=== PATIENT | male | born 1975 | race Caucasian/White ===

== ENCOUNTER 2024-11-09 01:16 | Emergency (ER) | payer OTHER, SELFPAY ==
[2024-11-09] VITALS (12 sets, daily range): BP systolic 114–153; BP diastolic 81–104; PULSE 117–128; RESP 20–46; TEMP 36.1; O2SAT 98–100
--- NOTE | ~2024-11-09 | XR_ITS ---
Portable chest x-ray Comparison: 04/04/2009 Clinical History: Weakness Findings: Lungs are clear, without focal consolidation or pleural effusion. Cardiomediastinal silho uette is stable. Bones and soft tissues are unremarkable. Impression: Normal chest. Reviewed, dictated and finalized at location . Impression: Normal chest.
[2024-11-09 01:28] LABS: Glucose Point of Care > 450 mg/dl (65-105)
--- NOTE | 2024-11-09 01:37 | ECG_ITS ---
Test Date: 2024-11-09 02:26:09 Measurements Intervals [place] Rate: 120 P: 96 ND: 142 QRS: 84 QRSD: 120 T: 40 QT: 382 QTc: 541 Interpretive Statements SINUS TACHYCARDIA MODERATE INTRAVENTRICULAR CONDUCTION DELAY [110+ ms QRS DURATION] BASELINE ARTIFACT LIMITS INTREPRETATION No previous ECG available for comparison Electronically Signed On 11-09-2024 14:28:10 CDT by Rosalva Solomon M.D.
[2024-11-09 01:59] LABS: Base Excess ABG -21.5 mmol/L (0-2); Carboxyhemoglobin 0.1 % (0-1.5); HCO3 ABG 3.7 mmol/L (23-29); Methemoglobin ABG 0.5 % (0-1.5); Oxygen Content ABG 24.6 %vol (16.0-22.0); Oxygen Saturation ABG 97.7 % (95-97); Oxyhemoglobin 97.1 % (94-100); PO2 ABG 130.5 mmHg (80-90); Reduced Hemoglobin 2.3 % (0-1.5); pH ABG 7.17 (7.35-7.45)
[2024-11-09 02:03] LABS: Device NASAL CANNULA; Hematocrit 54.5 % (40.0-54.0); Mean Corpuscular Hemoglobin 30.3 pg (27.0-31.0); Mean Corpuscular Volume 91.6 fL (78.0-102.0); Mean Platelet Volume 10.4 fl (8.7-11.0); Modified Allen's Test Pass; PCO2 ABG 10.3 mmHg (35-45); Platelet Count Result 307 K/mm3 (150-420); Red Blood Count 5.95 M/mm3 (4.70-6.10); Red Cell Distribution Width 13.2 % (11.6-14.4); Site Drawn RIGHT RADIAL; White Blood Count 19.9 K/mm3 (4.8-10.8)
[2024-11-09] MEDS: INSULIN HUMAN REGULAR (*BKC) 1,000 UNITS/10 ML VIAL 10 UNITS IV PUSH (02:05)
[2024-11-09] MEDS: SODIUM CHLORIDE 0.9% IV 1,000 ML 3000 ML IV CONT (02:05)
[2024-11-09] MEDS: INSULIN REG 100 UNITS/100 ML 100 UNITS/100 ML BAG 7 UNITS IV CONT (02:10)
--- OUTSIDE RECORDS SUMMARY | 2024-11-09 02:12 | XMS_ITS | Encounter Summary ---
Author Organization [facility] Address [address] [place] [id number] Care Team Providers Care Financial Data Analyst Name Role Phone Oniel Cleaning MD Primary Care Provider Encounter Details Date Type Department Care Team (Late st Contact Info) Description 01/10/2023 Trade[employer] Message Enc [facility] [address] [address] Johnny Khan III, MD [address] [place] [phone] Visit Follow Up Social History Tobacco Use Types Packs/Day Years Used Date Smoking Tobacco: Former Cigarettes Q uit: 08/01/2017 Smokeless Tobacco: Never Alcohol Use Standard Drinks/Week Comments Yes 0 (1 standard drink = 0.6 oz pur e alcohol) occasionally Sex and Gender Information Value Date Recorded Sex Assigned at Not on file Legal Sex Male 4:22 PM CDT Gender Identity Not on file Sexual Orientation Not on file COVID-19 Exposure Response Date Recorded In the last 10 days, have yo u been in contact with someone who was confirmed or suspected to have Coronavirus/COVID-19? No / Unsure 01/10/2023 9:20 AM CDT documented as of this encounter Plan of Treatment Not on file documented as of this encounter Visit Diagnoses Not on filedocumented in this encounter Care Teams Financial Data Analyst Relationship Specialty Start Date End Date Oniel Cleaning MD [address] [place] [phone] PCP - General FAMILY PRACTICE 06/13/21 documented as of this encounter
--- OUTSIDE RECORDS SUMMARY | 2024-11-09 02:12 | XMS_ITS | Clinical Summary ---
Author Organization [facility] Address [address] [place] [id number] Care Team Providers Care Cyber Software Engineer Name Role Phone Oniel Cleaning MD Primary Care Provider Allergies No known active allergies Medications ibuprofen (MOTRIN) 200 MG tablet Take 1 tablet (200 mg total) by mouth every 6 (six) hours as needed for Pain. Active Active Problems Problem Noted Date Diagnosed Date Lumbar radiculopathy 12/10/2021 Patellofemoral pain syndrome of left knee 2020 Family History Medical History Relation Comments No Known Problems Father Aortic bypass Mother Cardiac Stents Mother Heart Disease Mother Kidney Disease Mother Peripheral Vascular Disease Mother Relation Status Comments Father Alive Mother Alive Social History Tobacco Use Types Packs/Day Years [...] on file Sexual Orientation Not on file Last Filed Vital Signs Vital Sign Reading Time Taken Comments Blood Pressure 143/95 11/08/2022 3:46 PM BASS MECHANISM MAKER Pulse 85 11/08/2022 3:46 PM BASS MECHANISM MAKER Temperature 36.7 C (98.1 F) 11/08/2022 3:46 PM BASS MECHANISM MAKER Respiratory Rate 18 11/08/2022 3:46 PM BASS MECHANISM MAKER Oxygen Saturation 100% 11/08/2022 3:46 PM BASS MECHANISM MAKER Inhaled Oxygen Concentration - - Weight 79.8 kg (176 lb) 01/10/2023 9:45 AM CDT Height 180.3 cm (5' 11 ) 01/10/2023 9:45 AM CDT Body Mass Index 24.55 01/10/2023 9:45 AM CDT Plan of Treatment Health Maintenance Due Date Last Done Comments Colorectal Cancer Screening Colonoscopy (10 Years) 1977 Annual Physical 01/24/1980 Hepatitis C 1995 DTaP, Tdap and Td Vaccines ( 1 - Tdap) 01/24/1996 Hepatitis B Vaccines (1 of 3 - 19+ 3-dose series) 01/24/1996 COVID-19 Vaccine (2023-2 5 season) 2024 01/09/2021, 12/12/2020 Influenza Adult (#1) 2024 Meningococcal B Vaccine Aged Out No l onger eligible based on patient's age to complete this topic Meningococcal Vaccine Aged Out No vida ella eligible based on patient's age to complete this topic Pneumococcal Vaccine: Pediatrics (0 to 5 Years) and At-Risk Patients (6 to 64 Years) Aged Out No longer eligible b ased on patient's age to complete this topic RSV Immunizations Under 20 Months Aged Out No longer eligible b ased on patient's age to complete this topic Insurance [employer]MENTS OF [employer] Care Teams Cyber Software Engineer Relationship Specialty Start Date End Date Oniel Cleaning MD [address] [place] [phone] PCP - General FAMILY PRACTICE 06/13/21
--- NOTE | 2024-11-09 02:17 | PC.NURSE ---
WARM BLANKETS PLACED
--- NOTE | 2024-11-09 02:18 | ED.AMS ---
HPI - Altered Mental Status General Chief Complaint: Altered Mental Status Stated Complaint: ELEVATED BLOOD GLUCOSE Time Seen by Provider: 11/09/24 01:20 Source: family and EMS Mode of arrival: EMS Limitations: altered mental status History of Present Illness HPI narrative: 49 year old male arrives to the Emergency Department via EMS. EMS was called by family for decreasing level of consciousness over past 4 days. Family called tonight because his breathing was fast. MD complaint: altered mental status Onset (ago): day(s) (4) Related Data Allergies Allergy/AdvReac Type Severity Reaction Status Date / Time No Known Allergies Allergy Mild Verified 11/09/24 01:26 Review of Systems Review of Systems: All systems reviewed & are unremarkable except as noted in HPI and below ROS unobtainable: Yes unobtainable due to mental status Exam Const: Limitations: altered mental status Other: moaning, incoherent, tachypnea, tachycardic HENMT: Head: normal to inspection Ears: external ears normal Face/Nose/Sinus: Normal external nose present Face and sinus: normal facial exam Mouth: Yes dry mucous membranes Eyes: Pupils: Equal, round and reactive pupils present EOM: EOMs intact bilaterally Neck: Neck: normal visual inspection and no meningeal signs Chest: Chest palpation & inspection: normal inspection of the chest Resp: Effort & Inspection: tachypneic (Kussmaul breathing) Auscultation: diminished lung sounds Cardio: Rate: tachycardic Rhythm: regular rhythm GI: Inspection: non-distended GI Palp: Yes Soft to palpation and No Tenderness to palpation present (GI) Back/Spine/Pelvis: Back: no CVA tenderness Skin: General skin exam: normal color Neuro: Other: AMS, moaning, Oriented x 1 Extrem: General: normal to inspection and no clubbing, cyanosis or edema Course Course Emergency Course: 49 y/o male arrives to the ED via EMS for AMS, rapid breathing. Onset 4 days ago, progressively worse. PE: tachypnea [Kussmaul], tachycardic, dry oral mucosa, incoherent FSBS: high (0300) FSBS: >500 CBC: H/H 18/54.5, Plt 307; wbc 19.9 CMP: Na 139, K 4.8, Cl 101, CO2 8, Glc >800, BUN 43, Cr 2.44; LFT's normal. 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 [place]. Bicarbonate 1 amp IVP. Zofran 4 mg IVP. ([phone] Gurpreet contacted re: transfer. Will call back [phone] discussed with Toshia Augustin. Report given and patient accepted for transfer. She will talk to [employer] Operator. Awaiting bed assignment. [phone] Bed assigned ICU 8. Report will be called and EMS notified of transfer ([phone] Spoke with Toshia who has spoke with [employer] Operator. Agrees with management. Would like blood C&S, Covid/Flu/RSV Vital Signs Vital signs: Vital Signs Temperature 36.1 C L 11/09/24 01:15 Pulse Rate 128 H 11/09/24 01:15 Respiratory Rate 46 H 11/09/24 01:15 Blood Pressure 117/81 11/09/24 01:15 Pulse Oximetry 100 11/09/24 01:15 Oxygen Delivery Room Air 11/09/24 01:15 Temperature 36.1 C L 11/09/24 01:15 Pulse Rate 123 H 11/09/24 04:00 Respiratory Rate 20 11/09/24 04:00 Blood Pressure 128/97 H 11/09/24 04:00 Pulse Oximetry 98 11/09/24 04:00 Oxygen Delivery Room Air 11/09/24 04:00 Transfer Transfered to: [facility]: [facility] Transfer rationale: ICU management, DKA, dehydration, hyperglycemia, hyperosmolar, pre renal failure Accepting physician: Marcello CALDERON - Altered Mental Status Lab Data 11/09/24 01:56 11/09/24 01:57 Labs: Lab Results 11/09/24 11/09/24 11/09/24 Range/Units 01:24 01:37 01:45 WBC (4.8-10.8) K/mm3 RBC (4.70-6.10) M/mm3 Hgb (14.0-18.0) g/dL Hct (40.0-54.0) % MCV (78.0-102.0) fL MCH (27.0-31.0) pg MCHC (32-36) g/dL RDW (11.6-14.4) % Plt Count (150-420) K/mm3 MPV (8.7-11.0) fl Immature Gran % (Auto) Neut % (Auto) Lymph % (Auto) Frio % (Auto) Eos % (Auto) Baso % (Auto) Lymph # (Auto) Frio # (Auto) Eos # (Auto) Baso # (Auto) Abs Immat Gran (auto) Absolute Neuts (auto) Absolute Nucleated RBC Neutrophils % (Manual) (46-73) % Band Neutrophils % (0-6) % Lymphocytes % (Manual) (18-44) % Monocytes % (Manual) (3-9) % Eosinophils % (Manual) (1-6) % Basophils % (Manual) (0-1) % Metamyelocytes % % Nucleated RBC % Abs Neuts (Manual) (1.3-6.7) K/mm3 Abs Lymphs (Manual) (1.1-4.5) K/mm3 Abs Monocytes (Manual) (0.1-0.90) K/mm3 Absolute Eos (Manual) (0.02-0.50) K/mm3 Abs Basophils (Manual) (0-0.1) K/mm3 Platelet Estimate (Adequate) Schistocytes Methemoglobin (0-1.5) % Sodium (136-145) mmol/L Potassium (3.5-5.1) mmol/L Chloride (98-108) mmol/L Carbon Dioxide (21-32) mmol/L Anion Gap (4-12) mmol/L BUN (7-18) mg/dL Creatinine (0.70-1.30) mg/dL Estim Creat Clear Calc ml/min Estimated GFR (59 - ) Glucose (70-99) mg/dL POC Capillary Glucose > 450 H (65-105) mg/dl Calculated Osmolality (285-295) mOsm/kg Calcium (8.5-10.1) mg/dL Total Bilirubin (0.00-1.00) mg/dL AST (15-37) U/L ALT (16-63) U/L Alkaline Phosphatase (46-116) U/L Troponin I (0.00-60.4) ng/L Total Protein (6.4-8.2) g/dL Albumin (3.4-5.0) g/dL Urine Color Light yellow (Yellow) Urine Appearance Clear (Clear) Urine pH 5.5 (5.0-8.0) Ur Specific [place] 1.020 (1.010-1.020) Urine Protein Trace H (Negative) Urine Glucose (UA) 3+ H (Negative) Urine Ketones 3+ H (Negative) Ur Blood (Man) Negative (Negative) Urine Nitrate Negative (Negative) Urine Bilirubin 2+ H (Negative) Urine Urobilinogen 0.2 (0.2-1.0) mg/dL Ur Leukocyte Esterase Negative (Negative) Urine RBC 0-2 (0-2) /hpf Urine WBC 0-3 (0-3) /hpf Ur Squamous Epith Cells Rare (Few) /hpf Urine Bacteria None seen (None) /hpf Urine Opiates Screen Negative (Negative) Urine Methadone Screen Negative (Negative) Ur Barbiturates Screen Negative (Negative) Ur Phencyclidine Scrn Negative (Negative) Ur Amphetamine Screen Negative (Negative) U Benzodiazepines Scrn Negative (Negative) Urine Cocaine Screen Negative (Negative) U Cannabinoids Screen Negative (Negative) Acetone Level (Negative) 11/09/24 11/09/24 11/09/24 Range/Units 01:56 01:57 02:00 WBC 19.9 H (4.8-10.8) K/mm3 RBC 5.95 (4.70-6.10) M/mm3 Hgb 18.0 (14.0-18.0) g/dL Hct 54.5 H (40.0-54.0) % MCV 91.6 (78.0-102.0) fL MCH 30.3 (27.0-31.0) pg MCHC 33.0 (32-36) g/dL RDW 13.2 (11.6-14.4) % Plt Count 307 (150-420) K/mm3 MPV 10.4 (8.7-11.0) fl Immature Gran % (Auto) Not Reportable Neut % (Auto) Not Reportable Lymph % (Auto) Not Reportable Frio % (Auto) Not Reportable Eos % (Auto) Not Reportable Baso % (Auto) Not Reportable Lymph # (Auto) Not Reportable Frio # (Auto) Not Reportable Eos # (Auto) Not Reportable Baso # (Auto) Not Reportable Abs Immat Gran (auto) Not Reportable Absolute Neuts (auto) Not Reportable Absolute Nucleated RBC Not Reportable Neutrophils % (Manual) 82 H (46-73) % Band Neutrophils % 0 (0-6) % Lymphocytes % (Manual) 5 L (18-44) % Monocytes % (Manual) 11 H (3-9) % Eosinophils % (Manual) 0 L (1-6) % Basophils % (Manual) 0 (0-1) % Metamyelocytes % 2 % Nucleated RBC % Not Reportable Abs Neuts (Manual) 16.31 H (1.3-6.7) K/mm3 Abs Lymphs (Manual) 0.99 L (1.1-4.5) K/mm3 Abs Monocytes (Manual) 2.18 H (0.1-0.90) K/mm3 Absolute Eos (Manual) 0.00 L (0.02-0.50) K/mm3 Abs Basophils (Manual) 0.00 (0-0.1) K/mm3 Platelet Estimate Adequate (Adequate) Schistocytes Not Reportable Methemoglobin 0.5 (0-1.5) % Sodium 139 (136-145) mmol/L Potassium 4.8 (3.5-5.1) mmol/L Chloride 101 (98-108) mmol/L Carbon Dioxide 8 L (21-32) mmol/L Anion Gap 30 H (4-12) mmol/L BUN 43 H (7-18) mg/dL Creatinine 2.44 H (0.70-1.30) mg/dL Estim Creat Clear Calc 36 ml/min Estimated GFR 29 L (59 - ) Glucose > 800 H* (70-99) mg/dL POC Capillary Glucose > 450 H (65-105) mg/dl Calculated Osmolality 338 H (285-295) mOsm/kg Calcium 9.8 (8.5-10.1) mg/dL Total Bilirubin 1.0 (0.00-1.00) mg/dL AST < 10 L (15-37) U/L ALT 20 (16-63) U/L Alkaline Phosphatase 186 H (46-116) U/L Troponin I 5.6 (0.00-60.4) ng/L Total Protein 8.9 H (6.4-8.2) g/dL Albumin 4.0 (3.4-5.0) g/dL Urine Color (Yellow) Urine Appearance (Clear) Urine pH (5.0-8.0) Ur Specific [place] (1.010-1.020) Urine Protein (Negative) Urine Glucose (UA) (Negative) Urine Ketones (Negative) Ur Blood (Man) (Negative) Urine Nitrate (Negative) Urine Bilirubin (Negative) Urine Urobilinogen (0.2-1.0) mg/dL Ur Leukocyte Esterase (Negative) Urine RBC (0-2) /hpf Urine WBC (0-3) /hpf Ur Squamous Epith Cells (Few) /hpf Urine Bacteria (None) /hpf Urine Opiates Screen (Negative) Urine Methadone Screen (Negative) Ur Barbiturates Screen (Negative) Ur Phencyclidine Scrn (Negative) Ur Amphetamine Screen (Negative) U Benzodiazepines Scrn (Negative) Urine Cocaine Screen (Negative) U Cannabinoids Screen (Negative) Acetone Level Moderate A (Negative) 11/09/24 Range/Units 04:02 WBC (4.8-10.8) K/mm3 RBC (4.70-6.10) M/mm3 Hgb (14.0-18.0) g/dL Hct (40.0-54.0) % MCV (78.0-102.0) fL MCH (27.0-31.0) pg MCHC (32-36) g/dL RDW (11.6-14.4) % Plt Count (150-420) K/mm3 MPV (8.7-11.0) fl Immature Gran % (Auto) Neut % (Auto) Lymph % (Auto) Frio % (Auto) Eos % (Auto) Baso % (Auto) Lymph # (Auto) Frio # (Auto) Eos # (Auto) Baso # (Auto) Abs Immat Gran (auto) Absolute Neuts (auto) Absolute Nucleated RBC Neutrophils % (Manual) (46-73) % Band Neutrophils % (0-6) % Lymphocytes % (Manual) (18-44) % Monocytes % (Manual) (3-9) % Eosinophils % (Manual) (1-6) % Basophils % (Manual) (0-1) % Metamyelocytes % % Nucleated RBC % Abs Neuts (Manual) (1.3-6.7) K/mm3 Abs Lymphs (Manual) (1.1-4.5) K/mm3 Abs Monocytes (Manual) (0.1-0.90) K/mm3 Absolute Eos (Manual) (0.02-0.50) K/mm3 Abs Basophils (Manual) (0-0.1) K/mm3 Platelet Estimate (Adequate) Schistocytes Methemoglobin (0-1.5) % Sodium (136-145) mmol/L Potassium (3.5-5.1) mmol/L Chloride (98-108) mmol/L Carbon Dioxide (21-32) mmol/L Anion Gap (4-12) mmol/L BUN (7-18) mg/dL Creatinine (0.70-1.30) mg/dL Estim Creat Clear Calc ml/min Estimated GFR (59 - ) Glucose (70-99) mg/dL POC Capillary Glucose > 450 H (65-105) mg/dl Calculated Osmolality (285-295) mOsm/kg Calcium (8.5-10.1) mg/dL Total Bilirubin (0.00-1.00) mg/dL AST (15-37) U/L ALT (16-63) U/L Alkaline Phosphatase (46-116) U/L Troponin I (0.00-60.4) ng/L Total Protein (6.4-8.2) g/dL Albumin (3.4-5.0) g/dL Urine Color (Yellow) Urine Appearance (Clear) Urine pH (5.0-8.0) Ur Specific [place] (1.010-1.020) Urine Protein (Negative) Urine Glucose (UA) (Negative) Urine Ketones (Negative) Ur Blood (Man) (Negative) Urine Nitrate (Negative) Urine Bilirubin (Negative) Urine Urobilinogen (0.2-1.0) mg/dL Ur Leukocyte Esterase (Negative) Urine RBC (0-2) /hpf Urine WBC (0-3) /hpf Ur Squamous Epith Cells (Few) /hpf Urine Bacteria (None) /hpf Urine Opiates Screen (Negative) Urine Methadone Screen (Negative) Ur Barbiturates Screen (Negative) Ur Phencyclidine Scrn (Negative) Ur Amphetamine Screen (Negative) U Benzodiazepines Scrn (Negative) Urine Cocaine Screen (Negative) U Cannabinoids Screen (Negative) Acetone Level (Negative) ABG Data ABG results: 03/11/25 01:56 Puncture Site Right radial ABG pH 7.17 L ABG pCO2 10.3 L* ABG pO2 130.5 H ABG PO2/FiO2 Ratio Not Reportable ABG HCO3 3.7 L ABG O2 Saturation 97.7 H ABG O2 Content 24.6 H ABG Base Excess -21.5 L A-a Gradient Not Reportable Oxyhemoglobin 97.1 Carboxyhemoglobin 0.1 Reduced Hemoglobin 2.3 H O2 Delivery Device Nasal cannula O2 Liters/Min Not Reportable Critical Care Time Critical Care Time Critical Care Time: Yes Total Critical Care Time: 120 Discharge Plan Discharge Clinical Impression: DKA (diabetic ketoacidosis), Acute hyperglycemia, Acute dehydration, Prerenal acute renal failure Patient Disposition: Acute Care Hospital Condition: Stable Patient Language: Slovak Follow-up/Referrals: UNKNOWN,DOCTOR [Primary Care Provider] - Time of Disposition: 04:38
[2024-11-09 02:19] LABS: Alanine Aminotransferase 20 U/L (16-63); Alkaline Phosphatase 186 U/L (46-116); Anion Gap 30 mmol/L (4-12); Blood Urea Nitrogen 43 mg/dL (7-18); Calcium 9.8 mg/dL (8.5-10.1); Carbon Dioxide 8 mmol/L (21-32); Chloride 101 mmol/L (98-108); Estimated CRCL calculation 36 ml/min; Estimated Glomerular Filt Rate 29; Potassium 4.8 mmol/L (3.5-5.1); Sodium 139 mmol/L (136-145); Total Protein 8.9 g/dL (6.4-8.2); Troponin I 5.6 ng/L (0.00-60.4)
[2024-11-09 02:35] LABS: Acetone Moderate (Negative)
[2024-11-09 02:42] LABS: Add Urine Microscopic? YES; Appearance Urine Clear (Clear); Bilirubin Urine 2+ (Negative); Blood Urine Negative (Negative); Color Urine Light Yellow (Yellow); Glucose Urine UA 3+ (Negative); Ketones Urine 3+ (Negative); Leukocyte Esterase Ur Negative (Negative); Nitrate Urine Negative (Negative); Protein Urine Trace (Negative); Urobilinogen Urine 0.2 mg/dL (0.2-1.0); pH Urine 5.5 (5.0-8.0)
[2024-11-09 02:42] LABS: Aspartate Amino Transferase < 10 U/L (15-37)
[2024-11-09 02:44] LABS: Glucose > 800 mg/dL (70-99); Osmolality Calculated 338 mOsm/kg (285-295)
[2024-11-09 02:48] LABS: Bacteria Urine None seen /hpf; RBC Urine 0-2 /hpf (0-2); Squamous Epithelial Cell Urine Rare /hpf (Few); WBC Urine 0-3 /hpf (0-3)
[2024-11-09 02:48] LABS: Amphetamine Screen Urine Negative (Negative); Barbiturate Screen Urine Negative (Negative); Benzodiazepines Screen Urine Negative (Negative); Cannabinoid Screen Urine Negative (Negative); Cocaine Screen Urine Negative (Negative); Methadone Screen Urine Negative (Negative); Opiate Screen Urine Negative (Negative); Phencyclidine Screen Urine Negative (Negative)
[2024-11-09] MEDS: SODIUM CHLORIDE 0.9% IV 1,000 ML 999 ML IV CONT ×2 (02:57→04:00)
[2024-11-09] MEDS: SODIUM BICARBONATE 8.4% 50 MEQ/50 ML SYRINGE IV PUSH (02:57)
[2024-11-09 03:02] LABS: Glucose Point of Care > 450 mg/dl (65-105)
[2024-11-09 03:11] LABS: Band Neutrophils Percent 0 % (0-6); Lymphocytes Absolute Manual 0.99 K/mm3 (1.1-4.5); Lymphocytes Percent Manual 5 % (18-44); Monocytes Absolute Manual 2.18 K/mm3 (0.1-0.90); Monocytes Percent Manual 11 % (3-9); Neutrophils Absolute Manual 16.31 K/mm3 (1.3-6.7); Neutrophils Percent Manual 82 % (46-73)
[2024-11-09 03:12] LABS: Basophils Percent Manual 0 % (0-1); Eosinophils Percent Manual 0 % (1-6); Metamyelocytes Percent 2 %; Platelet Estimate Adequate (Adequate)
--- NOTE | 2024-11-09 03:39 | PC.NURSE ---
PATIENT IS BECOMING MORE ALERT. WHENEVER THIS RN WALKS INTO THE ROOM, PATIENT IS NOW OPENING HIS EYES AND LOOKS AT ME. THEN CLOSES THEM AGAIN. CONTINUES TO MUMBLE. CAN NOT IDENTIFY WHAT PATIENT IS SAYING.
[2024-11-09 04:07] LABS: Glucose Point of Care > 450 mg/dl (65-105)
--- NOTE | 2024-11-09 04:15 | PC.NURSE ---
PATIENT STARTED RETCHING IN ROOM. HEAD OF BED RAISED. EMESIS BAG PLACED NEAR HIS MOUTH. ALMITA ORELLANA GETTING ZOFRAN FOR PATIENT
[2024-11-09] MEDS: ONDANSETRON INJ 4 MG/2 ML VIAL IV PUSH (04:18)
--- NOTE | 2024-11-09 04:19 | PC.NURSE ---
PATIENT IS RESTING ON STRETCHER AFTER RECEIVING ZOFRAN. PATIENT IS NOW SAYING YES OR NO WHEN ASKED SIMPLE QUESTIONS. PATIENT DENIES BEING A DIABETIC. DENIES DAILY ALCOHOL USE. DENIES DRUG USE. DENIES BEING ILL
[2024-11-09 05:11] LABS: Glucose Point of Care > 450 mg/dl (65-105)
--- NOTE | 2024-11-09 05:38 | PC.NURSE ---
PATIENT SAT UP ON STRETCHER. REPOSITIONED HIMSELF AND THEN LAID BACK DOWN. RESTLESS
--- NOTE | 2024-11-09 06:00 | PC.NURSE ---
NEW BLOOD GLUCOSE OBTAINED. PATIENT IS MORE ALERT AT THIS TIME. CONTINUES TO ANSWER YES AND NO. LOOKS AROUND THE ROOM MORE. PATIENT HAS SCOOTED HIMSELF TOWARDS THE FOOT OF THE BED. PATIENT WAS REPOSITIONED FOR COMFORT. WHEN ASKED IF HE WAS HOT, PATIENT SAID YES. ADDITIONAL BLAKETS WERE REMOVED. CURTAIN REMAINS OPEN FOR ENHANCED MONITORING.
[2024-11-09 06:07] LABS: Glucose Point of Care 364 mg/dl (65-105)
[2024-11-09 06:17] LABS: Influenza A QL RT-PCR Negative (Negative); Influenza B QL RT-PCR Negative (Negative); RSV RNA, RT-PCR Negative (Negative); SARS-CoV-2 RNA PCR Negative (Negative)
[2024-11-09 06:58] LABS: Glucose Point of Care 316 mg/dl (65-105)
--- NOTE | 2024-11-09 07:09 | PC.NURSE ---
REPORT GIVEN TO TIMUR ORELLANA
[2024-11-09 07:28] LABS: Glucose Point of Care 315 mg/dl (65-105)
--- NOTE | 2024-11-09 07:31 | PC.NURSE ---
report was taken from ESTEBAN Chapman. pt was transferred to [facility] ICU 8. pt's fsbs was [address] Perkins, insulin drip was stopped for transport and to be restarted upon arrival to [facility]. pt's belongings were sent with pt.
--- NOTE | 2024-11-10 13:47 | PC.NURSE ---
PRELIMINARY BLOOD CULTURE RESULTS X2: NO GROWTH TO DATE
== END 2024-11-09 07:20 | disposition short-term general hospital (02) ==
PROVIDERS: Emergency Provider Emergency Medicine
DX: E11.10 Type 2 diabetes mellitus with ketoacidosis without coma (principal); E11.65 Type 2 diabetes mellitus with hyperglycemia; E86.0 Dehydration; N17.9 Acute kidney failure, unspecified; Z20.822 Contact with and (suspected) exposure to COVID-19
CPT/HCPCS: 36415; 36600; 71045; 80053; 80307; 81001; 82010; 82375; 82805; 82948; 83050; 84484; 85018; 85025; 87040; 87637; 93005; 96365; 96366; 96375; 99285; J1815; J2405; J7030

== ENCOUNTER 2024-11-09 08:04 | Inpatient (IN) | payer MEDICARE, SELFPAY ==
[2024-11-09] VITALS (13 sets, daily range): BP systolic 136–156; BP diastolic 84–93; PULSE 119–133; RESP 25–45; TEMP 36.7–37.4; O2SAT 98–100; BMI 23.8
--- NOTE | ~2024-11-09 | MR_ITS ---
MRI of the brain Clinical History: Altered mental status Technique: Axial and sagittal T1-weighted images were acquired. These were followed by axial T2-weigh vincent, diffusion weighted, gradient, and FLAIR images. Findings: No acute infarct, intracranial hemorrhage, or mass lesion. Probable tiny chronic lacunar in farct in the left periventricular white matter. Ventricles and subarachnoid spaces are unremarkable. Orbits are unremarkable. Paranasal sinuses and m astoid air cells are essentially clear, aside from minimal left ethmoid mucosal thickening. Major int racranial flow voids appear intact. Sagittal midline structures are intact. IMPRESSION: No acute abnormality. Probable tiny chronic lacunar infarct as above. Minimal left ethmoid sinus disease. Reviewed, dictated and finalized at location M.
--- NOTE | ~2024-11-09 | XR_ITS ---
MODIFIED ESOPHAGRAM HISTORY: Dysphagia. TECHNIQUE: Modified barium esophagram was performed by speech pathologist under radiologist fluorosco pic guidance. This was recorded on tape. The exam was reviewed on 11/12/2024 12:54 CDT. The DAP for this procedure was 0.64 Gycm2. Fluoroscopy time is 1.1 minutes. FINDINGS: Lateral projection of the cervical spine demonstrates no significant degenerative disease . Penetration without aspiration.. IMPRESSION: Laryngeal penetration with spontaneous clearance. No aspiration. Please refer to speech pathologist report for additional detail. Reviewed, dictated and finalized at location A.
--- NOTE | ~2024-11-09 | XR_ITS ---
Exam: Abdomen 1V HISTORY: NG insertion COMPARISON: None. TECHNIQUE: Supine images of the lower chest and upper abdomen FINDINGS: Nasogastric tube extends into the left upper quadrant, presumably within the stomach. IMPRESSION: Nasogastric tube in good position and ready for immediate use. Reviewed, dictated and finalized at location A.
--- NOTE | ~2024-11-09 | US_ITS ---
EXAMINATION: US renal BI DATE: 11/09/2024 11:11 INDICATION: Acute kidney injury. TECHNIQUE: Multiple ultrasound grayscale images of the kidneys were obtained. COMPARISON: None. FINDINGS: The right kidney measures 11.9 x 5.3 x 4.5 cm. The left kidney measures 13.1 x 5.2 x 5.1 cm. The kidn eys demonstrate normal parenchymal echogenicity. There is no hydronephrosis. The bladder is normal. T here is a Ulloa catheter in expected position. IMPRESSION: 1. Normal kidneys. No hydronephrosis. Reviewed, dictated and finalized at location B.
--- NOTE | ~2024-11-09 | XR_ITS ---
EXAMINATION: XR chest 1V DATE: 11/11/2024 12:58 INDICATION: Fever. TECHNIQUE: A single frontal view of the chest was obtained. COMPARISON: Chest single view 11/09/2024 FINDINGS: There is no pneumonia, pleural effusion, or pneumothorax. The heart size is normal. IMPRESSION: 1. No acute cardiopulmonary disease. Reviewed, dictated and finalized at location B.
--- NOTE | ~2024-11-09 | CT_ITS ---
CT brain wo con Ordering provider: Zafar Mac MD History: 49 years Male with . AMS . Comparison: None. Technique: CT of the head without contrast. Radiation reduction technique utilized.The dose-length pr oduct was 605.33 mGy-cm. FINDINGS: BRAIN PARENCHYMA AND CSF SPACES: No midline shift, mass effect or hemorrhage. The brain parenchyma a nd CSF spaces are otherwise normal. VISUALIZED PARANASAL SINUSES: Well aerated. MASTOIDS: Well aerated. BONES: The bones appear intact. SOFT TISSUES: Visualized nasopharynx is normal. Superficial soft tissues are normal. IMPRESSION: No acute intracranial findings. Reviewed, dictated and finalized at location A.
[2024-11-09 08:13] LABS: Glucose Point of Care 321 mg/dl (65-105)
--- NOTE | 2024-11-09 08:17 | ADMGEN ---
This patient, Manish Riley, was admitted to Intensive Care Unit-2. Patient/family oriented to hospital policies and general routines including ID bracelet, bed and alarms, visiting hours, pain management, procedures, bathroom and other care routines, personal items, smoking policy, room service/diet, and visiting hours. Information on how to activate the Rapid Response Team has been discussed. Patient/Family are encouraged to report perceived risks to care and to ask questions if they do not understand what they are told or what they should do.
--- OUTSIDE RECORDS SUMMARY | 2024-11-09 08:20 | XMS_ITS | Clinical Summary ---
Author Organization [facility] Address [address] [place] [id number] Care Team Providers Care Energy Engineer Name Role Phone Oniel Cleaning MD [...] Comments Blood Pressure 143/95 11/08/2022 3:46 PM SCALPING MACHINE OPERATOR Pulse 85 11/08/2022 3:46 PM SCALPING MACHINE OPERATOR Temperature 36.7 C (98.1 F) 11/08/2022 3:46 PM SCALPING MACHINE OPERATOR Respiratory Rate 18 11/08/2022 3:46 PM SCALPING MACHINE OPERATOR Oxygen Saturation 100% 11/08/2022 3:46 PM SCALPING MACHINE OPERATOR Inhaled Oxygen Concentration - - Weight 79.8 [...] Insurance [employer] Care Teams Energy Engineer Relationship Specialty Start Date End Date Oniel Cleaning MD [address] [place] [phone] PCP - General FAMILY PRACTICE 06/13/21
--- OUTSIDE RECORDS SUMMARY | 2024-11-09 08:20 | XMS_ITS | Encounter Summary ---
Author Organization [facility] Address [address] [place] [address] Care Team Providers Care Drafting Layout Man Name Role Phone Oniel Cleaning MD Primary Care Provider Encounter Details Date Type Department Care Team (Late st Contact Info) Description 01/10/[address] [facility] [address] [address] Johnny Khan III, MD [address] [place] [phone] Visit Follow Up Social History [...] on filedocumented in this encounter Care Teams Drafting Layout Man Relationship Specialty Start Date End Date Oniel Clenaing MD [address] [place] [phone] PCP - General FAMILY PRACTICE 06/13/21 documented as of this encounter
--- NOTE | 2024-11-09 08:32 | WPDCNINT ---
Assessment and Plan Assessment and plan (1) DKA (diabetic ketoacidosis): Code(s): E11.10 - Type 2 diabetes mellitus with ketoacidosis without coma Status: Acute Assessment and Plan: Pt was given IVF bolus and will be started on infusion Insulin infusion started and Q1H glucose monitoring is being done Serial labs ordered Replace electrolytes as needed Consult dietitian and clinical informatics educator (2) Acute dehydration: Code(s): E86.0 - Dehydration Status: Acute Assessment and Plan: Patient getting IV fluids (3) DANIEL (acute kidney injury): Code(s): N17.9 - Acute kidney failure, unspecified Status: Acute Assessment and Plan: Likely secondary to dehydration from DKA Check CK, urine sodium urine creatinine Check renal ultrasound IV fluids Monitor urine output electrolytes and creatinine (4) Encephalopathy: Code(s): G93.40 - Encephalopathy, unspecified Status: Acute Assessment and Plan: Patient presented with altered mental status. At this time patient is drowsy but he response to some questions. He follows commands with all 4 extremities and exam is nonfocal. Encephalopathy is likely metabolic secondary to DKA but will Will obtain head CT Check ammonia and TSH (5) Leukocytosis: Code(s): D72.829 - Elevated white blood cell count, unspecified Status: Acute Assessment and Plan: Likely secondary to DKA. UA unremarkable chest x-ray negative. Patient afebrile. Check procalcitonin level check lactic acid level cultures were done in the ER and pending. Hold any antibiotics at this time Plan DVT prophylaxis -SCD Nutrition -npo Code Status - Full Code Total Critical Care Time - minutes Due to a high probability of clinically significant, life threatening deterioration, the patient required my highest level of preparedness to intervene emergently and I personally spent this critical care time directly and personally managing the patient. This critical care time included obtaining a history; examining the patient; pulse oximetry; ordering and review of studies; arranging urgent treatment with development of a management plan; evaluation of patient's response to treatment; frequent reassessment; and discussions with other providers. It was exclusive of separately billable procedures and treating other patients and teaching time. Please see Assessment and Plan section and the rest of the note for further information on patient assessment and treatment Supervisor Mails Consult Note Consult date: 11/09/24 Reason for consult: DKA HPI: Manish Riley is a 49 year old male who was brought to ER at [facility] by EMS the altered mental status. EMS was called by family as patient was drowsy for last 3-4 days. He also was breathing fast as per family members. With patient arrived the ER he was in COVID tachypneic and tachycardic. He was found to be dehydrated. Workup in the ER showed CBC: H/H 18/54.5, Plt 307; wbc 19.9 CMP: Na 139, K 4.8, Cl 101, CO2 8, Glc >800, BUN 43, Cr 2.44; LFT's normal. AG 30; OSM 338, eGFR 29 TNI: 5.6 EKG: ST, large amount baseline artifact, no gross acute changes AB.17/ 130/ 10/ 4, 97% ra Acetone: moderate UA: 3+ glc, 3+ ketones UDS: negative PCXR: NAD Patient was diagnosed with DKA. He was given IV fluid bolus, IV insulin push and started on insulin infusion. He was also given 1 amp of bicarb. Patient was transferred to [facility] for further management Patient at this time is drowsy but arousable. He only answers few questions by yes and no. He is unable to provide any meaningful history or review of systems. he does follow commands with all 4 extremities. Review of Systems Review of Systems: ROS unobtainable: Yes unobtainable due to mental status [facility] Social History Social History (Updated 11/09/24 @ 08:37 by Zafar Mac MD) Social History: Patient denies smoking alcohol use or any other drug use Meds Home Medications and Allergies Allergies Allergy/AdvReac Type Severity Reaction Status Date / Time No Known Allergies Allergy Mild Verified 11/09/24 01:26 Vital Signs Vital Signs - 24 hr 11/09/24 08:10 11/09/24 08:16 Temperature 36.7 C Pulse Rate 127 H 126 H Respiratory Rate 29 H 25 H Blood Pressure 156/88 H Pulse Oximetry 100 99 Oxygen Delivery Room Air Exam Narrative: General: Pt is drowsy but opens eyes on stimulation, Lungs/Chest: Trachea central Clear BS B/L, No crackles or wheezing. Mild tachypnea Cardiac: RRR. Normal S1 S2. No murmurs Circulation: Pedal pulses are intact and symmetrical. Abdomen: Normal bowel sounds.. Soft. NT. ND. Extremities: No clubbing, cyanosis or edema. Warm : Ulloa in place Neurologic: Drowsy, opens eyes on stimulation, answers some question, Follows commands with and Moves all 4 extremities PERRL Skin: No Rash Results Imaging Radiologist's impression: No abnormal detected Quality VTE Prophylaxis VTE prophylaxis: mechanical ordered Hospitalist MIPS Advance Care Plan I have confirmed that the patient's Advanced Care Plan is present, code status is documented, or surrogate decision maker is listed in patient medical record.: Yes Medication Reconciliation I have utilized all available resources to obtain, update and review the patients current medications (includes all prescriptions, OTC, herbals, cannabis, and nutritional supplements).: Yes
[2024-11-09 08:57] LABS: Basophils Percent Auto 0.3 % (0.2-1.2); Hematocrit 49.3 % (42.0-52.0); Hemoglobin 16.9 g/dL (14.0-18.0); Immature Granulocyte Absolute 0.11 K/mm3 (0.00-0.031); Immature Granulocyte Percent A 0.9 % (0-0.5); Lymphocytes Absolute Auto 0.73 K/mm3 (0.9-3.2); Lymphocytes Percent Auto 6.1 % (18.3-44.2); Mean Corpuscular HGB Conc 34.3 g/dl (32-36); Mean Corpuscular Hemoglobin 30.7 pg (26-34); Mean Corpuscular Volume 89.5 fl (80-100); Mean Platelet Volume 10.1 fl (7.4-10.4); Monocytes Absolute Auto 1.5 K/mm3 (0.1-0.6); Monocytes Percent Auto 12.6 % (2.6-8.5); Neutrophils Absolute Auto 9.5 K/mm3 (1.3-6.7); Neutrophils Percent Auto 80.1 % (45.5-73.1); Platelet Count Result 229 k/mm3 (150-375); Red Blood Count 5.51 M/mm3 (4.6-6.20); Red Cell Distribution Width 13.2 % (11.5-14.5); White Blood Count 11.9 K/mm3 (4.5-10.0)
[2024-11-09 09:07] LABS: Ammonia < 9 umol/L (9-30)
[2024-11-09] MEDS: INSULIN HUMAN REGULAR (*BKC) 100 UNITS in SODIUM CHLORIDE 0.9% IV 99 ML 7.5 UNITS IV CONT (09:10)
[2024-11-09 09:15] LABS: Anion Gap 21 mmol/L (4-12); Blood Urea Nitrogen 29 mg/dL (9-20); Calcium 9.3 mg/dL (8.4-10.2); Carbon Dioxide 11 mmol/L (22-30); Chloride 122 mmol/L (98-107); Creatine Kinase < 20 U/L (55-170); Estimated CRCL calculation 80 ml/min; Estimated Glomerular Filt Rate > 60; Glucose 314 mg/dL (65-110); Magnesium 2.6 mg/dL (1.6-2.3); Potassium 3.7 mmol/L (3.4-5.0); Sodium 154 mmol/L (137-145)
[2024-11-09 09:15] LABS: Glucose Point of Care 304 mg/dl (65-105)
[2024-11-09 09:25] LABS: Phosphorus < 1.0 mg/dL (2.5-4.5)
[2024-11-09] MEDS: SODIUM CHLORIDE 0.9% IV 1,000 ML 150 ML IV CONT (09:26)
[2024-11-09 09:56] LABS: Lactic Acid Reflex 1.9 mmol/L (0.7-2.0)
[2024-11-09 10:05] LABS: Procalcitonin 0.4 ng/mL
[2024-11-09 10:08] LABS: Glucose Point of Care 276 mg/dl (65-105)
[2024-11-09] MEDS: KCL 20 MEQ/D5/0.45% SOD CHL 1,000 ML 150 ML IV CONT (10:08)
[2024-11-09 10:18] LABS: Hemoglobin A1C 12.4 % (<5.7)
[2024-11-09 10:52] LABS: MRSA (PCR) NOT DETECTED (NOT DETECTE)
[2024-11-09 11:05] LABS: Glucose Point of Care 265 mg/dl (65-105)
[2024-11-09 11:23] LABS: Thyroid Stimulating Hormone Reflex 0.397 uIU/mL (0.465-4.68)
[2024-11-09 12:04] LABS: Glucose Point of Care 232 mg/dl (65-105)
[2024-11-09 12:37] LABS: Creatinine Urine 62.5 mg/dL
[2024-11-09] MEDS: POTASSIUM PHOS,M-BASIC-D-BASIC 40 MMOL in SODIUM CHLORIDE 0.9% IV 250 ML 43.89 MMOL IVPB (12:43)
[2024-11-09 12:49] LABS: Sodium Urine Random 16 meq/L
[2024-11-09 12:58] LABS: Anion Gap 19 mmol/L (4-12); Blood Urea Nitrogen 25 mg/dL (9-20); Calcium 9.9 mg/dL (8.4-10.2); Carbon Dioxide 12 mmol/L (22-30); Chloride 125 mmol/L (98-107); Estimated CRCL calculation 91 ml/min; Estimated Glomerular Filt Rate > 60; Glucose 224 mg/dL (65-110); Sodium 156 mmol/L (137-145)
[2024-11-09 13:04] LABS: Glucose Point of Care 197 mg/dl (65-105)
[2024-11-09 14:05] LABS: Glucose Point of Care 205 mg/dl (65-105)
[2024-11-09 15:03] LABS: Glucose Point of Care 241 mg/dl (65-105)
[2024-11-09 15:59] LABS: Glucose Point of Care 262 mg/dl (65-105)
[2024-11-09 16:55] LABS: Anion Gap 23 mmol/L (4-12); Blood Urea Nitrogen 26 mg/dL (9-20); Calcium 9.3 mg/dL (8.4-10.2); Carbon Dioxide 9 mmol/L (22-30); Chloride 124 mmol/L (98-107); Estimated CRCL calculation 94 ml/min; Estimated Glomerular Filt Rate > 60; Glucose 300 mg/dL (65-110); Sodium 156 mmol/L (137-145)
[2024-11-09 17:00] LABS: Glucose Point of Care 326 mg/dl (65-105)
--- NOTE | 2024-11-09 17:01 | PC.NURSE ---
Dr. Mac notified of pt's BMP results. Orders placed by RN
--- NOTE | 2024-11-09 17:02 | PM.IMHP ---
H&P: HPI History of Present Illness Date/Time: 11/09/24 17:02 Chief Complaint: DKA Narrative: ER-HPI narrative: 49 year old male arrives to the Emergency Department via EMS. EMS was called by family for decreasing level of consciousness over past 4 days. Family called tonight because his breathing was fast. complaint: altered mental status Patient is quite somnolent does not provide any ROS or history, patient is seen by lighter captain and DKA protocol is in place blood sugars are trending down will continue to monitor with lighter captain. Suspect patient is a type 2 diabetes non compliant his A1c is 12.4. Review of Systems Review of Systems: ROS unobtainable: Yes unobtainable due to mental status PMFSH Family History Family History (Updated 11/10/24 @ 15:36 by Madyson Jeong RN) Grandparent Acute myocardial infarction Cerebrovascular accident Other Asthma Social History Social History Social History: Patient denies smoking alcohol use or any other drug use Smoking packs per day: 0.5 Smoking cigarettes per day: 10.0 Smoking status: Former smoker Tobacco type: cigarettes Additional smoking assessment comments: quit over 5 years ago Alcohol intake: current Drinks per week: 24 Substance use: unknown Substance use type: marijuana Do You Feel Safe in your Home?: No Lack of Transportation: No Lack of Food: Never True Current Housing: I Have Housing Concerned About Future Housing: No Difficulty Paying Gas/Electric Bills: No Difficulty Paying for Meds: No Currently Unemployed: No Education: High School Diploma/GED Difficulty w/ Childcare or Family Care: No Spiritual care concerns: No Meds Home Medications and Allergies Home Medications ?Medication ?Instructions ?Recorded ?Confirmed ?Type gabapentin 400 mg capsule 400 mg PO Q12H 11/10/24 11/10/24 History Allergies Allergy/AdvReac Type Severity Reaction Status Date / Time No Known Allergies Allergy Mild Verified 11/09/24 01:26 Vital Signs Vital Signs - 24 hr 11/09/24 08:05 11/09/24 08:10 11/09/24 08:16 Temperature 36.7 C Pulse Rate 126 H 127 H 126 H Respiratory Rate 29 H 25 H Blood Pressure 156/88 H Pulse Oximetry 100 99 Oxygen Delivery Room Air 11/09/24 10:00 11/09/24 10:00 11/09/24 12:00 Temperature 37.4 C 36.9 C Pulse Rate 124 H 124 H 119 H Respiratory Rate 31 H 34 H Blood Pressure 154/93 H 156/86 H Pulse Oximetry 100 99 Oxygen Delivery 11/09/24 12:00 11/09/24 12:00 11/09/24 14:00 Temperature 37.1 C Pulse Rate 119 H 119 H 125 H Respiratory Rate 34 H 36 H Blood Pressure 136/84 Pulse Oximetry 99 99 Oxygen Delivery Room Air 11/09/24 14:00 11/09/24 16:00 11/09/24 16:00 Temperature 37.3 C Pulse Rate 125 H 133 H 133 H Respiratory Rate 41 H 31 H Blood Pressure 144/86 H Pulse Oximetry 98 98 Oxygen Delivery Room Air 11/09/24 16:00 Temperature Pulse Rate 133 H Respiratory Rate Blood Pressure Pulse Oximetry Oxygen Delivery Exam Narrative: Patient refused exam H&P: Results Labs Labs: Short CBC 11/09/24 Range/Units 08:48 WBC 11.9 H (4.5-10.0) K/mm3 Hgb 16.9 (14.0-18.0) g/dL Hct 49.3 (42.0-52.0) % Plt Count 229 (150-375) k/mm3 [facility] 11/09/24 11/09/24 11/09/24 08:48 12:23 16:39 Sodium 154 H 156 H 156 H Potassium 3.7 3.0 L 4.0 Chloride 122 H 125 H 124 H Carbon Dioxide 11 L 12 L 9 L BUN 29 H 25 H 26 H Creatinine 1.04 0.91 0.88 Glucose 314 H 224 H 300 H Calcium 9.3 9.9 9.3 Cardiac Enzymes 11/09/24 11/09/24 Range/Units 08:48 08:48 Total Creatine Kinase Cancelled < 20 L Assessment and Plan Assessment and plan (1) Metabolic encephalopathy: Code(s): G93.41 - Metabolic encephalopathy Status: Acute (2) Electrolyte abnormality: Code(s): E87.8 - Other disorders of electrolyte and fluid balance, not elsewhere classified Status: Acute (3) DANIEL (acute kidney injury): Code(s): N17.9 - Acute kidney failure, unspecified Status: Acute (4) DKA, type 2: Code(s): E11.10 - Type 2 diabetes mellitus with ketoacidosis without coma Status: Acute Plan HPI narrative: 49 year old male arrives to the Emergency Department via EMS. EMS was called by family for decreasing level of consciousness over past 4 days. Family called tonight because his breathing was fast. MD complaint: altered mental status
[2024-11-09] MEDS: KCL 20 MEQ/D5W 1,000 ML 1,000 ML 150 ML IV CONT (17:41)
[2024-11-09 18:01] LABS: Glucose Point of Care 307 mg/dl (65-105)
[2024-11-09 18:56] LABS: Glucose Point of Care 309 mg/dl (65-105)
[2024-11-09 20:02] LABS: Glucose Point of Care 304 mg/dl (65-105)
[2024-11-09 20:43] LABS: Anion Gap 22 mmol/L (4-12); Blood Urea Nitrogen 24 mg/dL (9-20); Calcium 9.7 mg/dL (8.4-10.2); Carbon Dioxide 9 mmol/L (22-30); Chloride 126 mmol/L (98-107); Estimated CRCL calculation 94 ml/min; Estimated Glomerular Filt Rate > 60; Glucose 319 mg/dL (65-110); Potassium 4.1 mmol/L (3.4-5.0); Sodium 157 mmol/L (137-145)
[2024-11-09 20:44] LABS: Phosphorus 1.8 mg/dL (2.5-4.5)
[2024-11-09 21:03] LABS: Glucose Point of Care 287 mg/dl (65-105)
[2024-11-09 21:54] LABS: Glucose Point of Care 247 mg/dl (65-105)
--- NOTE | 2024-11-09 22:34 | PC.NURSE ---
Patient breathing with respiratory rate in the 30s to 40s and low CO2 noted on BMP. RN notified Dr. Mac to ask if repeat ABG was warranted. No new orders at this time. Will continue to monitor.
[2024-11-09 22:56] LABS: Glucose Point of Care 234 mg/dl (65-105)
[2024-11-10] VITALS (15 sets, daily range): BP systolic 132–163; BP diastolic 70–102; PULSE 96–132; RESP 16–37; TEMP 36.9–37.5; O2SAT 97–100; BMI 23.8
[2024-11-10 00:03] LABS: Glucose Point of Care 212 mg/dl (65-105)
[2024-11-10 00:42] LABS: Base Excess ABG -7.3 mEq/l (+/-2.0); Fractional Inspired Oxygen 21 %; Oxygen Content ABG 21.5 %vol (16.0-22.0); Oxygen Saturation ABG 96.4 % (95.0-100.0); Oxyhemoglobin 96.1 % THb (90.0-100.0); PCO2 ABG 24.1 mmHg (35.0-45.0); PO2 ABG 81.9 mmHg (80.0-100.0); Total Hemoglobin 15.9 g/dL (12.0-18.0); pH ABG 7.413 (7.350-7.450)
[2024-11-10 00:44] LABS: Modified Allen's Test Pass; Site Drawn RIGHT RADIAL
[2024-11-10 00:55] LABS: Anion Gap 18 mmol/L (4-12); Blood Urea Nitrogen 22 mg/dL (9-20); Calcium 9.6 mg/dL (8.4-10.2); Carbon Dioxide 12 mmol/L (22-30); Chloride 125 mmol/L (98-107); Estimated CRCL calculation 112 ml/min; Estimated Glomerular Filt Rate > 60; Glucose 228 mg/dL (65-110); Potassium 4.2 mmol/L (3.4-5.0); Sodium 155 mmol/L (137-145)
[2024-11-10 00:57] LABS: Glucose Point of Care 211 mg/dl (65-105)
[2024-11-10 02:03] LABS: Glucose Point of Care 180 mg/dl (65-105)
[2024-11-10 03:04] LABS: Glucose Point of Care 205 mg/dl (65-105)
[2024-11-10 04:02] LABS: Glucose Point of Care 230 mg/dl (65-105)
[2024-11-10 04:32] LABS: Hematocrit 47.8 % (42.0-52.0); Hemoglobin 16.3 g/dL (14.0-18.0); Mean Corpuscular HGB Conc 34.1 g/dl (32-36); Mean Corpuscular Hemoglobin 30.6 pg (26-34); Mean Corpuscular Volume 89.8 fl (80-100); Mean Platelet Volume 9.7 fl (7.4-10.4); Platelet Count Result 212 k/mm3 (150-375); Red Blood Count 5.32 M/mm3 (4.6-6.20); White Blood Count 10.2 K/mm3 (4.5-10.0)
[2024-11-10 04:39] LABS: Alanine Aminotransferase 14 U/L (6-50); Albumin Level 4.1 g/dL (3.5-5.1); Alkaline Phosphatase 138 U/L (38-126); Anion Gap 19 mmol/L (4-12); Aspartate Amino Transferase 10 U/L (17-59); Bilirubin,Total 0.9 mg/dL (0.2-1.3); Blood Urea Nitrogen 20 mg/dL (9-20); Calcium 9.8 mg/dL (8.4-10.2); Carbon Dioxide 13 mmol/L (22-30); Chloride 122 mmol/L (98-107); Estimated CRCL calculation 104 ml/min; Estimated Glomerular Filt Rate > 60; Glucose 273 mg/dL (65-110); Magnesium 2.5 mg/dL (1.6-2.3); Potassium 4.4 mmol/L (3.4-5.0); Sodium 154 mmol/L (137-145)
[2024-11-10 05:02] LABS: Glucose Point of Care 240 mg/dl (65-105)
[2024-11-10 06:03] LABS: Glucose Point of Care 287 mg/dl (65-105)
[2024-11-10] MEDS: KCL 20 MEQ/D5W 1,000 ML 1,000 ML 150 ML IV CONT ×4 (06:35→20:05)
[2024-11-10 06:57] LABS: Glucose Point of Care 296 mg/dl (65-105)
[2024-11-10 08:10] LABS: Glucose Point of Care 319 mg/dl (65-105)
[2024-11-10] MEDS: ENOXAPARIN 40 MG/0.4 ML SYRINGE SUB-Q (08:18)
[2024-11-10] MEDS: PANTOPRAZOLE SODIUM IV 40 MG VIAL IV PUSH (08:18)
--- NOTE | 2024-11-10 08:46 | WPDINTPN ---
Progress Note: A&P Assessment and Plan (1) DKA (diabetic ketoacidosis): Code(s): E11.10 - Type 2 diabetes mellitus with ketoacidosis without coma Status: Inactive Assessment and Plan: Pt was given IVF bolus and and is on infusion Insulin infusion started and Q1H glucose monitoring is being done Serial labs ordered Electrolytes are being replaced Consult dietitian and art educator (2) Acute dehydration: Code(s): E86.0 - Dehydration Status: Inactive Assessment and Plan: Patient presented with significant dehydration with hypernatremia. Continue IV fluids with D5 water to try to bring sodium and chloride down slowly Continue IV fluids Monitor urine output (3) DANIEL (acute kidney injury): Code(s): N17.9 - Acute kidney failure, unspecified Status: Acute Assessment and Plan: Likely secondary to dehydration from DKA Normal CK, Un remark renal ultrasound Continue IV fluids Creatinine improved and normalized Monitor urine output electrolytes and creatinine (4) Encephalopathy: Code(s): G93.40 - Encephalopathy, unspecified Status: Acute Assessment and Plan: Patient presented with altered mental status. Head CT was negative. Patient likely has metabolic encephalopathy which will be explained by significant metabolic derangements.. Ammonia normal, thyroid function test reviewed Infectious sources entertained but no objective evidence of infection at this time. Patient is afebrile. WBC has normalized. Procalcitonin level is low. Lactic acid is normal. Neuro exam is nonfocal. He has significant metabolic derangements to explain encephalopathy Unable to obtain MRI at this time. Consult neurology. Continue monitoring. (5) Leukocytosis: Code(s): D72.829 - Elevated white blood cell count, unspecified Status: Acute Assessment and Plan: Likely secondary to DKA. UA unremarkable chest x-ray negative. Patient afebrile. Low procalcitonin level normal lactic acid level, cultures were done in the ER and pending. Hold any antibiotics at this time WBC now normalized (6) Electrolyte abnormality: Code(s): E87.8 - Other disorders of electrolyte and fluid balance, not elsewhere classified Status: Acute Assessment and Plan: Patient presented with significant hypernatremia which was initially mass by hyperglycemia. As hyperglycemia is improved his hyponatremia has became obvious. He also has hyperchloremia He is on D5 water with potassium to bring the sodium and chloride level down slowly Potassium and phosphate also being replaced Plan DVT prophylaxis -Lovenox Nutrition -npo Code Status - Full Code Nursing staff has tried multiple times to contact family at both numbers listed in the chart but have been unable to get hold of anyone. Total Critical Care Time - 30 minutes Due to a high probability of clinically significant, life threatening deterioration, the patient required my highest level of preparedness to intervene emergently and I personally spent this critical care time directly and personally managing the patient. This critical care time included obtaining a history; examining the patient; pulse oximetry; ordering and review of studies; arranging urgent treatment with development of a management plan; evaluation of patient's response to treatment; frequent reassessment; and discussions with other providers. It was exclusive of separately billable procedures and treating other patients and teaching time. Please see Assessment and Plan section and the rest of the note for further information on patient assessment and treatment Subjective Date/time seen: 11/10/24 Overnight events reviewed. No significant change. Patient remains encephalopathy. He is confused and mumbles to questions. He does follow commands with all 4 extremities he opens his eyes on calling his name. Does not answer any questions. He is Afebrile He is on room air. Heart rate and blood pressure remains on the higher side. He continues to be on insulin infusion and IV fluids Urine output is good npo Review of systems not obtainable Review of Systems Review of Systems: ROS unobtainable: Yes unobtainable due to mental status Exam Narrative: General: Pt is drowsy but opens eyes on calling his name Lungs/Chest: Trachea central Clear BS B/L, No crackles or wheezing. Mild tachypnea Cardiac: RRR. Normal S1 S2. No murmurs Circulation: Pedal pulses are intact and symmetrical. Abdomen: Normal bowel sounds.. Soft. NT. ND. Extremities: No clubbing, cyanosis or edema. Warm : [place] in place Neurologic: Drowsy, opens eyes on stimulation, answers some question but mostly mumbles, Follows commands with and Moves all 4 extremities PERRL Skin: No Rash Objective Data Vital Signs Vital Signs: Vital Signs - 24 hr 11/09/24 10:00 11/09/24 10:00 11/09/24 12:00 Temperature 37.4 C 36.9 C Pulse Rate 124 H 124 H 119 H Respiratory Rate 31 H 34 H Blood Pressure 154/93 H 156/86 H Pulse Oximetry 100 99 Oxygen Delivery 11/09/24 12:00 11/09/24 12:00 11/09/24 14:00 Temperature 37.1 C Pulse Rate 119 H 119 H 125 H Respiratory Rate 34 H 36 H Blood Pressure 136/84 Pulse Oximetry 99 99 Oxygen Delivery Room Air 11/09/24 14:00 11/09/24 16:00 11/09/24 16:00 Temperature 37.3 C Pulse Rate 125 H 133 H 133 H Respiratory Rate 41 H 31 H Blood Pressure 144/86 H Pulse Oximetry 98 98 Oxygen Delivery Room Air 11/09/24 16:00 11/09/24 18:00 11/09/24 18:00 Temperature 37.2 C Pulse Rate 133 H 133 H 132 H Respiratory Rate 45 H Blood Pressure 153/88 H Pulse Oximetry 99 Oxygen Delivery 11/09/24 20:00 11/09/24 20:10 11/09/24 20:11 Temperature 37.2 C Pulse Rate 126 H 132 H 124 H Respiratory Rate 45 H 42 H Blood Pressure 149/93 H Pulse Oximetry 99 99 Oxygen Delivery Room Air 11/09/24 22:00 11/09/24 22:00 11/09/24 23:49 Temperature 37.3 C Pulse Rate 129 H 131 H 129 H Respiratory Rate 29 H 29 H Blood Pressure 142/93 H Pulse Oximetry 100 100 Oxygen Delivery Room Air 11/10/24 00:00 11/10/24 00:00 11/10/24 02:00 Temperature 37.3 C Pulse Rate 132 H 128 H 127 H Respiratory Rate 33 H Blood Pressure 141/70 H Pulse Oximetry 100 Oxygen Delivery 11/10/24 02:00 11/10/24 03:40 11/10/24 04:00 Temperature 37.2 C Pulse Rate 126 H 129 H 126 H Respiratory Rate 30 H 26 H Blood Pressure 156/87 H Pulse Oximetry 99 100 Oxygen Delivery Room Air 11/10/24 04:00 11/10/24 06:00 11/10/24 06:00 Temperature 37.2 C Pulse Rate 125 H 123 H 123 H Respiratory Rate 37 H 37 H Blood Pressure 161/95 H 159/85 H Pulse Oximetry 98 98 Oxygen Delivery 11/10/24 08:00 Temperature 36.9 C Pulse Rate 123 H Respiratory Rate 32 H Blood Pressure 148/77 H Pulse Oximetry 98 Oxygen Delivery Intake/Output Intake/Output: Intake & Output 11/08/24 11/08/24 11/09/24 11/10/24 00:59 23:59 23:59 23:59 Intake Total 1421.3333 1960.2 Output Total 1300 650 Balance 121.3333 1310.2 Meds/Results Medications: Active Medications Generic Name Dose Route Start Last Admin Trade Name Freq PRN Reason Stop Dose Admin Dextrose 12.5 gm 11/09/24 08:22 Dextrose 50% 25 Gm/50 Ml Syringe IV PUSH PRN PRN Hypoglycemia Protocol Enoxaparin Sodium 40 mg 11/10/24 09:00 11/10/24 08:18 Enoxaparin 40 Mg/0.4 Ml Syringe SUB-Q 40 mg DAILY KIKE Administration Glucagon 1 mg 11/09/24 08:22 Glucagon For Inj 1 Mg Vial IM PRN PRN Hypoglycemia Protocol Glucose 15 gm 11/09/24 08:22 Glucose Oral Gel 15 Gm Of Glucse In 37.5 Gm Tube PO PRN PRN Hypoglycemia Protocol Insulin Human Regular 100 100 mls @ 5 mls/hr 11/09/24 08:30 11/10/24 07:55 units/ Sodium Chloride IV CONT 5 units/hr .Q20H KIKE 5 mls/hr Titration Protocol 5 UNITS/HR Dextrose 1,000 mls @ 100 mls/hr 11/09/24 08:22 Dextrose 5% 1,000 Ml IVPB PRN PRN Hypoglycemia Protocol Potassium Chloride/Dextrose 1,000 mls @ 150 mls/hr 11/09/24 17:25 11/10/24 06:35 Kcl 20 Meq/D5w 1,000 Ml IV CONT 150 mls/hr .Q6H40M KIKE Administration Sodium Phosphate 20 mm/ 256.6667 mls @ 50 mls/hr 11/10/24 08:00 Dextrose IVPB 11/10/24 13:07 ONCE ONE Pantoprazole Sodium 40 mg 11/10/24 09:00 11/10/24 08:18 Pantoprazole Sodium Iv 40 Mg Vial IV PUSH 40 mg QAM KIKE Administration Radiology Results: ITS Impressions Head CT 11/09/24 09:07 IMPRESSION: No acute intracranial findings. Renal Ultrasound 11/09/24 11:13 IMPRESSION: 1. Normal kidneys. No hydronephrosis. Labs Labs: Laboratory Results - last 24 hr 11/09/24 11/09/24 11/09/24 08:48 08:48 08:48 WBC 11.9 H RBC 5.51 Hgb 16.9 Hct 49.3 MCV 89.5 MCH 30.7 MCHC 34.3 RDW 13.2 Plt Count 229 MPV 10.1 Immature Gran % (Auto) 0.9 H Neut % (Auto) 80.1 H Lymph % (Auto) 6.1 L Barren % (Auto) 12.6 H Eos % (Auto) 0.0 Baso % (Auto) 0.3 Lymph # (Auto) 0.73 L Barren # (Auto) 1.5 H Eos # (Auto) 0.0 Baso # (Auto) 0.0 Abs Immat Gran (auto) 0.11 H Absolute Neuts (auto) 9.5 H Absolute Nucleated RBC 0.000 Nucleated RBC % 0.0 Puncture Site ABG pH ABG pCO2 ABG pO2 ABG PO2/FiO2 Ratio ABG HCO3 ABG O2 Saturation ABG O2 Content ABG Base Excess A-a Gradient Oxyhemoglobin Total Hemoglobin O2 Delivery Device O2 Liters/Min FiO2 Sodium 154 H Potassium 3.7 Chloride 122 H Carbon Dioxide 11 L Anion Gap 21 H BUN 29 H Creatinine 1.04 Estim Creat Clear Calc 80 Estimated GFR > 60 Glucose 314 H POC Capillary Glucose Hemoglobin A1c 12.4 H Lactic Acid 1.9 Calcium 9.3 Phosphorus < 1.0 L Magnesium 2.6 H Cancelled Total Bilirubin AST ALT Alkaline Phosphatase Ammonia < 9 L Total Creatine Kinase Cancelled < 20 L Total Protein Albumin Procalcitonin 0.4 TSH (Reflex) 0.397 L Free T4 1.30 Total T3 0.70 L Ur Random Sodium Urine Creatinine Nasal MRSA (PCR) 11/09/24 11/09/24 11/09/24 09:12 09:21 10:06 WBC RBC Hgb Hct MCV MCH MCHC RDW Plt Count MPV Immature Gran % (Auto) Neut % (Auto) Lymph % (Auto) Barren % (Auto) Eos % (Auto) Baso % (Auto) Lymph # (Auto) Barren # (Auto) Eos # (Auto) Baso # (Auto) Abs Immat Gran (auto) Absolute Neuts (auto) Absolute Nucleated RBC Nucleated RBC % Puncture Site ABG pH ABG pCO2 ABG pO2 ABG PO2/FiO2 Ratio ABG HCO3 ABG O2 Saturation ABG O2 Content ABG Base Excess A-a Gradient Oxyhemoglobin Total Hemoglobin O2 Delivery Device O2 Liters/Min FiO2 Sodium Potassium Chloride Carbon Dioxide Anion Gap BUN Creatinine Estim Creat Clear Calc Estimated GFR Glucose POC Capillary Glucose 304 H 276 H Hemoglobin A1c Lactic Acid Calcium Phosphorus Magnesium Total Bilirubin AST ALT Alkaline Phosphatase Ammonia Total Creatine Kinase Total Protein Albumin Procalcitonin TSH (Reflex) Free T4 Total T3 Ur Random Sodium 16 Urine Creatinine 62.5 Nasal MRSA (PCR) Not detected 11/09/24 11/09/24 11/09/24 11:03 11:57 12:23 WBC RBC Hgb Hct MCV MCH MCHC RDW Plt Count MPV Immature Gran % (Auto) Neut % (Auto) Lymph % (Auto) Barren % (Auto) Eos % (Auto) Baso % (Auto) Lymph # (Auto) Barren # (Auto) Eos # (Auto) Baso # (Auto) Abs Immat Gran (auto) Absolute Neuts (auto) Absolute Nucleated RBC Nucleated RBC % Puncture Site ABG pH ABG pCO2 ABG pO2 ABG PO2/FiO2 Ratio ABG HCO3 ABG O2 Saturation ABG O2 Content ABG Base Excess A-a Gradient Oxyhemoglobin Total Hemoglobin O2 Delivery Device O2 Liters/Min FiO2 Sodium 156 H Potassium 3.0 L Chloride 125 H Carbon Dioxide 12 L Anion Gap 19 H BUN 25 H Creatinine 0.91 Estim Creat Clear Calc 91 Estimated GFR > 60 Glucose 224 H POC Capillary Glucose 265 H 232 H Hemoglobin A1c Lactic Acid Calcium 9.9 Phosphorus Magnesium Total Bilirubin AST ALT Alkaline Phosphatase Ammonia Total Creatine Kinase Total Protein Albumin Procalcitonin TSH (Reflex) Free T4 Total T3 Ur Random Sodium Urine Creatinine Nasal MRSA (PCR) 11/09/24 11/09/24 11/09/24 13:02 14:03 14:54 WBC RBC Hgb Hct MCV MCH MCHC RDW Plt Count MPV Immature Gran % (Auto) Neut % (Auto) Lymph % (Auto) Barren % (Auto) Eos % (Auto) Baso % (Auto) Lymph # (Auto) Barren # (Auto) Eos # (Auto) Baso # (Auto) Abs Immat Gran (auto) Absolute Neuts (auto) Absolute Nucleated RBC Nucleated RBC % Puncture Site ABG pH ABG pCO2 ABG pO2 ABG PO2/FiO2 Ratio ABG HCO3 ABG O2 Saturation ABG O2 Content ABG Base Excess A-a Gradient Oxyhemoglobin Total Hemoglobin O2 Delivery Device O2 Liters/Min FiO2 Sodium Potassium Chloride Carbon Dioxide Anion Gap BUN Creatinine Estim Creat Clear Calc Estimated GFR Glucose POC Capillary Glucose 197 H 205 H 241 H Hemoglobin A1c Lactic Acid Calcium Phosphorus Magnesium Total Bilirubin AST ALT Alkaline Phosphatase Ammonia Total Creatine Kinase Total Protein Albumin Procalcitonin TSH (Reflex) Free T4 Total T3 Ur Random Sodium Urine Creatinine Nasal MRSA (PCR) 11/09/24 11/09/24 11/09/24 15:57 16:39 16:58 WBC RBC Hgb Hct MCV MCH MCHC RDW Plt Count MPV Immature Gran % (Auto) Neut % (Auto) Lymph % (Auto) Barren % (Auto) Eos % (Auto) Baso % (Auto) Lymph # (Auto) Barren # (Auto) Eos # (Auto) Baso # (Auto) Abs Immat Gran (auto) Absolute Neuts (auto) Absolute Nucleated RBC Nucleated RBC % Puncture Site ABG pH ABG pCO2 ABG pO2 ABG PO2/FiO2 Ratio ABG HCO3 ABG O2 Saturation ABG O2 Content ABG Base Excess A-a Gradient Oxyhemoglobin Total Hemoglobin O2 Delivery Device O2 Liters/Min FiO2 Sodium 156 H Potassium 4.0 Chloride 124 H Carbon Dioxide 9 L Anion Gap 23 H BUN 26 H Creatinine 0.88 Estim Creat Clear Calc 94 Estimated GFR > 60 Glucose 300 H POC Capillary Glucose 262 H 326 H Hemoglobin A1c Lactic Acid Calcium 9.3 Phosphorus Magnesium Total Bilirubin AST ALT Alkaline Phosphatase Ammonia Total Creatine Kinase Total Protein Albumin Procalcitonin TSH (Reflex) Free T4 Total T3 Ur Random Sodium Urine Creatinine Nasal MRSA (PCR) 11/09/24 11/09/24 11/09/24 17:53 18:54 20:01 WBC RBC Hgb Hct MCV MCH MCHC RDW Plt Count MPV Immature Gran % (Auto) Neut % (Auto) Lymph % (Auto) Barren % (Auto) Eos % (Auto) Baso % (Auto) Lymph # (Auto) Barren # (Auto) Eos # (Auto) Baso # (Auto) Abs Immat Gran (auto) Absolute Neuts (auto) Absolute Nucleated RBC Nucleated RBC % Puncture Site ABG pH ABG pCO2 ABG pO2 ABG PO2/FiO2 Ratio ABG HCO3 ABG O2 Saturation ABG O2 Content ABG Base Excess A-a Gradient Oxyhemoglobin Total Hemoglobin O2 Delivery Device O2 Liters/Min FiO2 Sodium Potassium Chloride Carbon Dioxide Anion Gap BUN Creatinine Estim Creat Clear Calc Estimated GFR Glucose POC Capillary Glucose 307 H 309 H 304 H Hemoglobin A1c Lactic Acid Calcium Phosphorus Magnesium Total Bilirubin AST ALT Alkaline Phosphatase Ammonia Total Creatine Kinase Total Protein Albumin Procalcitonin TSH (Reflex) Free T4 Total T3 Ur Random Sodium Urine Creatinine Nasal MRSA (PCR) 11/09/24 11/09/24 11/09/24 20:26 21:01 21:53 WBC RBC Hgb Hct MCV MCH MCHC RDW Plt Count MPV Immature Gran % (Auto) Neut % (Auto) Lymph % (Auto) Barren % (Auto) Eos % (Auto) Baso % (Auto) Lymph # (Auto) Barren # (Auto) Eos # (Auto) Baso # (Auto) Abs Immat Gran (auto) Absolute Neuts (auto) Absolute Nucleated RBC Nucleated RBC % Puncture Site ABG pH ABG pCO2 ABG pO2 ABG PO2/FiO2 Ratio ABG HCO3 ABG O2 Saturation ABG O2 Content ABG Base Excess A-a Gradient Oxyhemoglobin Total Hemoglobin O2 Delivery Device O2 Liters/Min FiO2 Sodium 157 H Potassium 4.1 Chloride 126 H Carbon Dioxide 9 L Anion Gap 22 H BUN 24 H Creatinine 0.88 Estim Creat Clear Calc 94 Estimated GFR > 60 Glucose 319 H POC Capillary Glucose 287 H 247 H Hemoglobin A1c Lactic Acid Calcium 9.7 Phosphorus 1.8 L Magnesium Total Bilirubin AST ALT Alkaline Phosphatase Ammonia Total Creatine Kinase Total Protein Albumin Procalcitonin TSH (Reflex) Free T4 Total T3 Ur Random Sodium Urine Creatinine Nasal MRSA (PCR) 11/09/24 11/09/24 11/10/24 22:53 23:58 00:24 WBC RBC Hgb Hct MCV MCH MCHC RDW Plt Count MPV Immature Gran % (Auto) Neut % (Auto) Lymph % (Auto) Barren % (Auto) Eos % (Auto) Baso % (Auto) Lymph # (Auto) Barren # (Auto) Eos # (Auto) Baso # (Auto) Abs Immat Gran (auto) Absolute Neuts (auto) Absolute Nucleated RBC Nucleated RBC % Puncture Site ABG pH ABG pCO2 ABG pO2 ABG PO2/FiO2 Ratio ABG HCO3 ABG O2 Saturation ABG O2 Content ABG Base Excess A-a Gradient Oxyhemoglobin Total Hemoglobin O2 Delivery Device O2 Liters/Min FiO2 Sodium 155 H Potassium 4.2 Chloride 125 H Carbon Dioxide 12 L Anion Gap 18 H BUN 22 H Creatinine 0.73 Estim Creat Clear Calc 112 Estimated GFR > 60 Glucose 228 H POC Capillary Glucose 234 H 212 H Hemoglobin A1c Lactic Acid Calcium 9.6 Phosphorus Magnesium Total Bilirubin AST ALT Alkaline Phosphatase Ammonia Total Creatine Kinase Total Protein Albumin Procalcitonin TSH (Reflex) Free T4 Total T3 Ur Random Sodium Urine Creatinine Nasal MRSA (PCR) 11/10/24 11/10/24 11/10/24 00:33 00:55 02:00 WBC RBC Hgb Hct MCV MCH MCHC RDW Plt Count MPV Immature Gran % (Auto) Neut % (Auto) Lymph % (Auto) Barren % (Auto) Eos % (Auto) Baso % (Auto) Lymph # (Auto) Barren # (Auto) Eos # (Auto) Baso # (Auto) Abs Immat Gran (auto) Absolute Neuts (auto) Absolute Nucleated RBC Nucleated RBC % Puncture Site Right radial ABG pH 7.413 ABG pCO2 24.1 L ABG pO2 81.9 ABG PO2/FiO2 Ratio 3.90 ABG HCO3 15.0 L ABG O2 Saturation 96.4 ABG O2 Content 21.5 ABG Base Excess -7.3 A-a Gradient 39.0 Oxyhemoglobin 96.1 Total Hemoglobin 15.9 O2 Delivery Device Not Reportable O2 Liters/Min Not Reportable FiO2 21 Sodium Potassium Chloride Carbon Dioxide Anion Gap BUN Creatinine Estim Creat Clear Calc Estimated GFR Glucose POC Capillary Glucose 211 H 180 H Hemoglobin A1c Lactic Acid Calcium Phosphorus Magnesium Total Bilirubin AST ALT Alkaline Phosphatase Ammonia Total Creatine Kinase Total Protein Albumin Procalcitonin TSH (Reflex) Free T4 Total T3 Ur Random Sodium Urine Creatinine Nasal MRSA (PCR) 11/10/24 11/10/24 11/10/24 03:02 03:58 04:23 WBC 10.2 H RBC 5.32 Hgb 16.3 Hct 47.8 MCV 89.8 MCH 30.6 MCHC 34.1 RDW 14.0 Plt Count 212 MPV 9.7 Immature Gran % (Auto) Neut % (Auto) Lymph % (Auto) Barren % (Auto) Eos % (Auto) Baso % (Auto) Lymph # (Auto) Barren # (Auto) Eos # (Auto) Baso # (Auto) Abs Immat Gran (auto) Absolute Neuts (auto) Absolute Nucleated RBC Nucleated RBC % Puncture Site ABG pH ABG pCO2 ABG pO2 ABG PO2/FiO2 Ratio ABG HCO3 ABG O2 Saturation ABG O2 Content ABG Base Excess A-a Gradient Oxyhemoglobin Total Hemoglobin O2 Delivery Device O2 Liters/Min FiO2 Sodium 154 H Potassium 4.4 Chloride 122 H Carbon Dioxide 13 L Anion Gap 19 H BUN 20 Creatinine 0.79 Estim Creat Clear Calc 104 Estimated GFR > 60 Glucose 273 H POC Capillary Glucose 205 H 230 H Hemoglobin A1c Lactic Acid Calcium 9.8 Phosphorus Magnesium 2.5 H Total Bilirubin 0.9 AST 10 L ALT 14 Alkaline Phosphatase 138 H Ammonia Total Creatine Kinase Total Protein 7.0 Albumin 4.1 Procalcitonin TSH (Reflex) Free T4 Total T3 Ur Random Sodium Urine Creatinine Nasal MRSA (PCR) 11/10/24 11/10/24 11/10/24 04:59 06:00 06:55 WBC RBC Hgb Hct MCV MCH MCHC RDW Plt Count MPV Immature Gran % (Auto) Neut % (Auto) Lymph % (Auto) Barren % (Auto) Eos % (Auto) Baso % (Auto) Lymph # (Auto) Barren # (Auto) Eos # (Auto) Baso # (Auto) Abs Immat Gran (auto) Absolute Neuts (auto) Absolute Nucleated RBC Nucleated RBC % Puncture Site ABG pH ABG pCO2 ABG pO2 ABG PO2/FiO2 Ratio ABG HCO3 ABG O2 Saturation ABG O2 Content ABG Base Excess A-a Gradient Oxyhemoglobin Total Hemoglobin O2 Delivery Device O2 Liters/Min FiO2 Sodium Potassium Chloride Carbon Dioxide Anion Gap BUN Creatinine Estim Creat Clear Calc Estimated GFR Glucose POC Capillary Glucose 240 H 287 H 296 H Hemoglobin A1c Lactic Acid Calcium Phosphorus Magnesium Total Bilirubin AST ALT Alkaline Phosphatase Ammonia Total Creatine Kinase Total Protein Albumin Procalcitonin TSH (Reflex) Free T4 Total T3 Ur Random Sodium Urine Creatinine Nasal MRSA (PCR) 11/10/24 07:52 WBC RBC Hgb Hct MCV MCH MCHC RDW Plt Count MPV Immature Gran % (Auto) Neut % (Auto) Lymph % (Auto) Barren % (Auto) Eos % (Auto) Baso % (Auto) Lymph # (Auto) Barren # (Auto) Eos # (Auto) Baso # (Auto) Abs Immat Gran (auto) Absolute Neuts (auto) Absolute Nucleated RBC Nucleated RBC % Puncture Site ABG pH ABG pCO2 ABG pO2 ABG PO2/FiO2 Ratio ABG HCO3 ABG O2 Saturation ABG O2 Content ABG Base Excess A-a Gradient Oxyhemoglobin Total Hemoglobin O2 Delivery Device O2 Liters/Min FiO2 Sodium Potassium Chloride Carbon Dioxide Anion Gap BUN Creatinine Estim Creat Clear Calc Estimated GFR Glucose POC Capillary Glucose 319 H Hemoglobin A1c Lactic Acid Calcium Phosphorus Magnesium Total Bilirubin AST ALT Alkaline Phosphatase Ammonia Total Creatine Kinase Total Protein Albumin Procalcitonin TSH (Reflex) Free T4 Total T3 Ur Random Sodium Urine Creatinine Nasal MRSA (PCR) Quality VTE Prophylaxis VTE prophylaxis: mechanical ordered
[2024-11-10] MEDS: SODIUM PHOSPHATE 20 MM in DEXTROSE 5% IN WATER 250 ML 50 MM IVPB (08:49)
[2024-11-10 09:08] LABS: Glucose Point of Care 329 mg/dl (65-105)
[2024-11-10 10:18] LABS: Glucose Point of Care 232 mg/dl (65-105)
[2024-11-10 10:25] LABS: Anion Gap 12 mmol/L (4-12); Blood Urea Nitrogen 18 mg/dL (9-20); Calcium 9.4 mg/dL (8.4-10.2); Carbon Dioxide 17 mmol/L (22-30); Chloride 122 mmol/L (98-107); Estimated CRCL calculation 124 ml/min; Estimated Glomerular Filt Rate > 60; Glucose 275 mg/dL (65-110); Potassium 3.9 mmol/L (3.4-5.0); Sodium 151 mmol/L (137-145)
[2024-11-10] MEDS: INSULIN HUMAN REGULAR (*BKC) 100 UNITS in SODIUM CHLORIDE 0.9% IV 99 ML 7 UNITS IV CONT (10:27)
--- NOTE | 2024-11-10 10:42 | P.CONNEU_ITS ---
Assessment and Plan Assessment and plan (1) Metabolic encephalopathy: Code(s): G93.41 - Metabolic encephalopathy Status: Acute Plan 1. Diabetic ketoacidosis 2. Encephalopathy most likely metabolic 3. No significant change in the mental status compared to the finding at the emergency room. Will obtain the routine EEG and continue the treatment as such, wbc's count is gradually coming down, initial CT scan of the head was normal and he cannot have the MRI of the brain, will re-examine him tomorrow. Consult date: 11/10/24 HPI: Manish Riley is a 49 year old male Admitted To the hospital through the emergency room where he was brought by EMS ,as per the family request for the decreasing level of consciousness over the last 4 days. Patient reportedly not allergic to any medications. On initial examination he was noted to have change in the mental status, with incoherence and obvious tachypnea and tachycardia, his pupils were reacting to the light equally and spontaneous extra ocular movements were intact, And he was spontaneously moaning and groaning. He was notedly afebrile with pulse of 128 respiration of 46 blood pressure 117/81 and pulse ox of 100, initial CBC revealed WBC 19.9 with hemoglobin 18.0 and platelet count of 307, basic metabolic panel with blood sugar more than 800, BUN 43 and creatinine 2.44 CO2 8, UA with 3+ glycosuria, 3+ ketone urea, 2+ bilirubin, and drug screen negative, pH 7.17 with pCO2 10.3 and PO2 130.5, initial x-ray chest negative, initial CT scan of the head negative for the bleed and subsequent renal ultrasound normal with no hydronephrosis, admitted to the hospital for diabetic ketoacidosis, in the intensive care received IV fluids, intravenous glucose, with electrolyte replacement and with the diagnosis of diabetic ketoacidosis with dehydration and encephalopathy with full code status and neurological examination has been requested for these reasons. At present he is receiving IV fluids in insulin intravenously and potassium supplements. Review of Systems 2 Review of Systems: All systems reviewed & are unremarkable except as noted in HPI and below PMFSH Family History Family History Other Unknown family medical history Social History Social History Social History: Patient denies smoking alcohol use or any other drug use Alcohol intake: unknown Substance use: unknown Spiritual care concerns: No Meds Home Medications and Allergies Allergies Allergy/AdvReac Type Severity Reaction Status Date / Time No Known Allergies Allergy Mild Verified 11/09/24 01:26 Vital Signs Vital Signs - 24 hr 11/09/24 12:00 11/09/24 12:00 11/09/24 12:00 Temperature 36.9 C Pulse Rate 119 H 119 H 119 H Respiratory Rate 34 H 34 H Blood Pressure 156/86 H Pulse Oximetry 99 99 Oxygen Delivery Room Air 11/09/24 14:00 11/09/24 14:00 11/09/24 16:00 Temperature 37.1 C 37.3 C Pulse Rate 125 H 125 H 133 H Respiratory Rate 36 H 41 H Blood Pressure 136/84 144/86 H Pulse Oximetry 99 98 Oxygen Delivery 11/09/24 16:00 11/09/24 16:00 11/09/24 18:00 Temperature 37.2 C Pulse Rate 133 H 133 H 133 H Respiratory Rate 31 H 45 H Blood Pressure 153/88 H Pulse Oximetry 98 99 Oxygen Delivery Room Air 11/09/24 18:00 11/09/24 20:00 11/09/24 20:10 Temperature Pulse Rate 132 H 126 H 132 H Respiratory Rate 45 H Blood Pressure Pulse Oximetry 99 Oxygen Delivery Room Air 11/09/24 20:11 11/09/24 22:00 11/09/24 22:00 Temperature 37.2 C 37.3 C Pulse Rate 124 H 129 H 131 H Respiratory Rate 42 H 29 H Blood Pressure 149/93 H 142/93 H Pulse Oximetry 99 100 Oxygen Delivery 11/09/24 23:49 11/10/24 00:00 11/10/24 00:00 Temperature 37.3 C Pulse Rate 129 H 132 H 128 H Respiratory Rate 29 H 33 H Blood Pressure 141/70 H Pulse Oximetry 100 100 Oxygen Delivery Room Air 11/10/24 02:00 11/10/24 02:00 11/10/24 03:40 Temperature 37.2 C Pulse Rate 127 H 126 H 129 H Respiratory Rate 30 H 26 H Blood Pressure 156/87 H Pulse Oximetry 99 100 Oxygen Delivery Room Air 11/10/24 04:00 11/10/24 04:00 11/10/24 06:00 Temperature 37.2 C Pulse Rate 126 H 125 H 123 H Respiratory Rate 37 H Blood Pressure 161/95 H Pulse Oximetry 98 Oxygen Delivery 11/10/24 06:00 11/10/24 08:00 11/10/24 08:00 Temperature 36.9 C Pulse Rate 123 H 123 H 123 H Respiratory Rate 37 H 32 H 32 H Blood Pressure 159/85 H 148/77 H Pulse Oximetry 98 98 98 Oxygen Delivery Room Air 11/10/24 08:00 11/10/24 10:00 11/10/24 10:00 Temperature Pulse Rate 123 H 122 H 124 H Respiratory Rate 33 H Blood Pressure 163/94 H Pulse Oximetry 97 Oxygen Delivery Exam 2 Narrative: Revealed him to be awake, somewhat lethargic, not able to follow all the verbal commands, keeps moaning and groaning, head normocephalic, no bruit, ear nose throat examination normal, neck supple with no meningeal signs, able to move his head and neck from side to side without any specific expression on the face of pain and discomfort, and Fontan asleep moving upper and lower extremities but with decreased strength in upper and lower extremities, pupils round regular, extraocular movements are spontaneously full, with no nystagmus though he did not follow the eyes on commands, facial grimace symmetrical on sternal rub, tongue in the oral cavity and he did not protrude on commands, spontaneously moving both upper and lower extremities, plantar responses downgoing and reflexes are sluggish, did not follow for the [id number] to finger or heel to knee to flores, Results Labs 11/10/24 04:23 11/10/24 09:53 Labs: Short CBC 11/10/24 Range/Units 04:23 WBC 10.2 H (4.5-10.0) K/mm3 Hgb 16.3 (14.0-18.0) g/dL Hct 47.8 (42.0-52.0) % Plt Count 212 (150-375) k/mm3 BMP 11/09/24 11/09/24 11/09/24 12:23 16:39 20:26 Sodium 156 H 156 H 157 H Potassium 3.0 L 4.0 4.1 Chloride 125 H 124 H 126 H Carbon Dioxide 12 L 9 L 9 L BUN 25 H 26 H 24 H Creatinine 0.91 0.88 0.88 Glucose 224 H 300 H 319 H Calcium 9.9 9.3 9.7 11/10/24 11/10/24 11/10/24 00:24 04:23 09:53 Sodium 155 H 154 H 151 H Potassium 4.2 4.4 3.9 Chloride 125 H 122 H 122 H Carbon Dioxide 12 L 13 L 17 L BUN 22 H 20 18 Creatinine 0.73 0.79 0.65 L Glucose 228 H 273 H 275 H Calcium 9.6 9.8 9.4 Liver Function 11/10/24 Range/Units 04:23 Total Bilirubin 0.9 (0.2-1.3) mg/dL AST 10 L (17-59) U/L ALT 14 (6-50) U/L Alkaline Phosphatase 138 H (38-126) U/L Albumin 4.1 (3.5-5.1) g/dL
[2024-11-10 11:04] LABS: Glucose Point of Care 262 mg/dl (65-105)
[2024-11-10 12:04] LABS: Glucose Point of Care 225 mg/dl (65-105)
[2024-11-10 13:03] LABS: Glucose Point of Care 211 mg/dl (65-105)
[2024-11-10] MEDS: LABETALOL HCL INJ 100 MG/20 ML VIAL 20 MG IV PUSH ×2 (13:19→20:05)
[2024-11-10 14:07] LABS: Glucose Point of Care 232 mg/dl (65-105)
[2024-11-10 14:53] LABS: Anion Gap 12 mmol/L (4-12); Blood Urea Nitrogen 16 mg/dL (9-20); Calcium 9.2 mg/dL (8.4-10.2); Carbon Dioxide 19 mmol/L (22-30); Chloride 120 mmol/L (98-107); Estimated CRCL calculation 115 ml/min; Estimated Glomerular Filt Rate > 60; Glucose 207 mg/dL (65-110); Potassium 3.5 mmol/L (3.4-5.0); Sodium 151 mmol/L (137-145)
--- NOTE | 2024-11-10 15:00 | PC.NURSE ---
Dr. Mac notified of BMP results. Continue IVF and insulin drip. New orders entered by RN
[2024-11-10 15:04] LABS: Glucose Point of Care 195 mg/dl (65-105)
[2024-11-10] MEDS: POTASSIUM CHLORIDE INJ 40 MEQ in SODIUM CHLORIDE 0.9% IV 500 ML 130 MEQ IVPB (15:42)
[2024-11-10 16:11] LABS: Glucose Point of Care 227 mg/dl (65-105)
--- NOTE | 2024-11-10 17:03 | P.PNIM_ITS ---
Progress Note: A&P Assessment and Plan (1) Metabolic encephalopathy: Code(s): G93.41 - Metabolic encephalopathy Status: Acute (2) Electrolyte abnormality: Code(s): E87.8 - Other disorders of electrolyte and fluid balance, not elsewhere classified Status: Acute (3) DANIEL (acute kidney injury): Code(s): N17.9 - Acute kidney failure, unspecified Status: Acute (4) DKA, type 2: Code(s): E11.10 - Type 2 diabetes mellitus with ketoacidosis without coma Status: Acute Plan Patient is quite somnolent does not provide any ROS or history, patient is seen by industrial maintenance instructor and DKA protocol is in place blood sugars are trending down will continue to monitor with industrial maintenance instructor. Suspect patient is a type 2 diabetes non compliant his A1c is 12.4. patient still not be providing any review of symptoms or history, today patient's son came to visit the patient provide a little more history patient does have a history of alcohol abuse, patient seen by industrial maintenance instructor remains on DKA protocol however his blood sugars are improving anion gap is closed. Patient also seen by neurologist suspect patient has a metabolic encephalopathy secondary to DKA, will reassess the patient and further recommendation to follow. Subjective Date/time seen: 11/10/24 17:03 Interval history: 49 year old male arrives to the Emergency Department via EMS. EMS was called by family for decreasing level of consciousness over past 4 days. Family called tonight because his breathing was fast. MD complaint: altered mental status Patient is quite somnolent does not provide any ROS or history, patient is seen by industrial maintenance instructor and DKA protocol is in place blood sugars are trending down will continue to monitor with industrial maintenance instructor. Suspect patient is a type 2 diabetes non compliant his A1c is 12.4. patient still not be providing any review of symptoms or history, today patient's son came to visit the patient provide a little more history patient does have a history of alcohol abuse, patient seen by industrial maintenance instructor remains on DKA protocol however his blood sugars are improving anion gap is closed. Patient also seen by neurologist suspect patient has a metabolic encephalopathy secondary to DKA, will reassess the patient and further recommendation to follow. Review of Systems Review of Systems: ROS unobtainable: Yes unobtainable due to mental status Exam Narrative: Patient refused exam Objective Data Vital Signs Vital Signs: Vital Signs - 24 hr 11/09/24 18:00 11/09/24 18:00 11/09/24 20:00 Temperature 37.2 C Pulse Rate 133 H 132 H 126 H Respiratory Rate 45 H Blood Pressure 153/88 H Pulse Oximetry 99 Oxygen Delivery 11/09/24 20:10 11/09/24 20:11 11/09/24 22:00 Temperature 37.2 C Pulse Rate 132 H 124 H 129 H Respiratory Rate 45 H 42 H Blood Pressure 149/93 H Pulse Oximetry 99 99 Oxygen Delivery Room Air 11/09/24 22:00 11/09/24 23:49 11/10/24 00:00 Temperature 37.3 C 37.3 C Pulse Rate 131 H 129 H 132 H Respiratory Rate 29 H 29 H 33 H Blood Pressure 142/93 H 141/70 H Pulse Oximetry 100 100 100 Oxygen Delivery Room Air 11/10/24 00:00 11/10/24 02:00 11/10/24 02:00 Temperature 37.2 C Pulse Rate 128 H 127 H 126 H Respiratory Rate 30 H Blood Pressure 156/87 H Pulse Oximetry 99 Oxygen Delivery 11/10/24 03:40 11/10/24 04:00 11/10/24 04:00 Temperature 37.2 C Pulse Rate 129 H 126 H 125 H Respiratory Rate 26 H 37 H Blood Pressure 161/95 H Pulse Oximetry 100 98 Oxygen Delivery Room Air 11/10/24 06:00 11/10/24 06:00 11/10/24 08:00 Temperature 36.9 C Pulse Rate 123 H 123 H 123 H Respiratory Rate 37 H 32 H Blood Pressure 159/85 H 148/77 H Pulse Oximetry 98 98 Oxygen Delivery 11/10/24 08:00 11/10/24 08:00 11/10/24 10:00 Temperature Pulse Rate 123 H 123 H 122 H Respiratory Rate 32 H 33 H Blood Pressure 163/94 H Pulse Oximetry 98 97 Oxygen Delivery Room Air 11/10/24 10:00 11/10/24 12:00 11/10/24 12:00 Temperature 37.3 C Pulse Rate 124 H 122 H 122 H Respiratory Rate 25 H 25 H Blood Pressure 150/93 H Pulse Oximetry 98 98 Oxygen Delivery Room Air 11/10/24 12:00 11/10/24 13:19 11/10/24 14:00 Temperature Pulse Rate 116 H 120 H 100 Respiratory Rate Blood Pressure Pulse Oximetry Oxygen Delivery 11/10/24 14:00 11/10/24 16:00 11/10/24 16:00 Temperature 37.4 C Pulse Rate 99 109 H 109 H Respiratory Rate 34 H 31 H 31 H Blood Pressure 132/76 138/71 Pulse Oximetry 99 99 99 Oxygen Delivery Room Air 11/10/24 16:00 Temperature Pulse Rate 113 H Respiratory Rate Blood Pressure Pulse Oximetry Oxygen Delivery Intake/Output Intake/Output: Intake & Output 11/08/24 11/08/24 11/09/24 11/10/24 00:59 23:59 23:59 23:59 Intake Total 1421.3333 3265.6667 Output Total 1300 1075 Balance 121.3333 2190.6667 Meds/Results Medications: Active Medications Generic Name Dose Route Start Last Admin Trade Name Freq PRN Reason Stop Dose Admin Dextrose 12.5 gm 11/09/24 08:22 Dextrose 50% 25 Gm/50 Ml Syringe IV PUSH PRN PRN Hypoglycemia Protocol Enoxaparin Sodium 40 mg 11/10/24 09:00 11/10/24 08:18 Enoxaparin 40 Mg/0.4 Ml Syringe SUB-Q 40 mg DAILY KIKE Administration Glucagon 1 mg 11/09/24 08:22 Glucagon For Inj 1 Mg Vial IM PRN PRN Hypoglycemia Protocol Glucose 15 gm 11/09/24 08:22 Glucose Oral Gel 15 Gm Of Glucse In 37.5 Gm Tube PO PRN PRN Hypoglycemia Protocol Insulin Human Regular 100 100 mls @ 1 mls/hr 11/09/24 08:30 11/10/24 16:01 units/ Sodium Chloride IV CONT 1 units/hr .Q24H KIKE 1 mls/hr Titration Protocol 1 UNITS/HR Dextrose 1,000 mls @ 100 mls/hr 11/09/24 08:22 Dextrose 5% 1,000 Ml IVPB PRN PRN Hypoglycemia Protocol Potassium Chloride/Dextrose 1,000 mls @ 150 mls/hr 11/09/24 17:25 11/10/24 13:19 Kcl 20 Meq/D5w 1,000 Ml IV CONT 150 mls/hr .Q6H40M KIKE Administration Potassium Chloride 40 meq/ 520 mls @ 130 mls/hr 11/10/24 15:01 11/10/24 15:42 Sodium Chloride IVPB 11/10/24 19:00 130 mls/hr ONCE ONE Administration Labetalol HCl 20 mg 11/10/24 10:59 11/10/24 13:19 Labetalol Hcl Inj 100 Mg/20 Ml Vial IV PUSH 20 mg Q4H PRN Administration SBP > 160 and HR> 60 -1st choice Pantoprazole Sodium 40 mg 11/10/24 09:00 11/10/24 08:18 Pantoprazole Sodium Iv 40 Mg Vial IV PUSH 40 mg QAM KIKE Administration Radiology Results: ITS Impressions Head CT 11/09/24 09:07 IMPRESSION: No acute intracranial findings. Renal Ultrasound 11/09/24 11:13 IMPRESSION: 1. Normal kidneys. No hydronephrosis. Labs Labs: Laboratory Results - last 24 hr 11/09/24 11/09/24 11/09/24 17:53 18:54 20:01 WBC RBC Hgb Hct MCV MCH MCHC RDW Plt Count MPV Puncture Site ABG pH ABG pCO2 ABG pO2 ABG PO2/FiO2 Ratio ABG HCO3 ABG O2 Saturation ABG O2 Content ABG Base Excess A-a Gradient Oxyhemoglobin Total Hemoglobin O2 Delivery Device O2 Liters/Min FiO2 Sodium Potassium Chloride Carbon Dioxide Anion Gap BUN Creatinine Estim Creat Clear Calc Estimated GFR Glucose POC Capillary Glucose 307 H 309 H 304 H Calcium Phosphorus Magnesium Total Bilirubin AST ALT Alkaline Phosphatase Total Protein Albumin 11/09/24 11/09/24 11/09/24 20:26 21:01 21:53 WBC RBC Hgb Hct MCV MCH MCHC RDW Plt Count MPV Puncture Site ABG pH ABG pCO2 ABG pO2 ABG PO2/FiO2 Ratio ABG HCO3 ABG O2 Saturation ABG O2 Content ABG Base Excess A-a Gradient Oxyhemoglobin Total Hemoglobin O2 Delivery Device O2 Liters/Min FiO2 Sodium 157 H Potassium 4.1 Chloride 126 H Carbon Dioxide 9 L Anion Gap 22 H BUN 24 H Creatinine 0.88 Estim Creat Clear Calc 94 Estimated GFR > 60 Glucose 319 H POC Capillary Glucose 287 H 247 H Calcium 9.7 Phosphorus 1.8 L Magnesium Total Bilirubin AST ALT Alkaline Phosphatase Total Protein Albumin 11/09/24 11/09/24 11/10/24 22:53 23:58 00:24 WBC RBC Hgb Hct MCV MCH MCHC RDW Plt Count MPV Puncture Site ABG pH ABG pCO2 ABG pO2 ABG PO2/FiO2 Ratio ABG HCO3 ABG O2 Saturation ABG O2 Content ABG Base Excess A-a Gradient Oxyhemoglobin Total Hemoglobin O2 Delivery Device O2 Liters/Min FiO2 Sodium 155 H Potassium 4.2 Chloride 125 H Carbon Dioxide 12 L Anion Gap 18 H BUN 22 H Creatinine 0.73 Estim Creat Clear Calc 112 Estimated GFR > 60 Glucose 228 H POC Capillary Glucose 234 H 212 H Calcium 9.6 Phosphorus Magnesium Total Bilirubin AST ALT Alkaline Phosphatase Total Protein Albumin 11/10/24 11/10/24 11/10/24 00:33 00:55 02:00 WBC RBC Hgb Hct MCV MCH MCHC RDW Plt Count MPV Puncture Site Right radial ABG pH 7.413 ABG pCO2 24.1 L ABG pO2 81.9 ABG PO2/FiO2 Ratio 3.90 ABG HCO3 15.0 L ABG O2 Saturation 96.4 ABG O2 Content 21.5 ABG Base Excess -7.3 A-a Gradient 39.0 Oxyhemoglobin 96.1 Total Hemoglobin 15.9 O2 Delivery Device Not Reportable O2 Liters/Min Not Reportable FiO2 21 Sodium Potassium Chloride Carbon Dioxide Anion Gap BUN Creatinine Estim Creat Clear Calc Estimated GFR Glucose POC Capillary Glucose 211 H 180 H Calcium Phosphorus Magnesium Total Bilirubin AST ALT Alkaline Phosphatase Total Protein Albumin 11/10/24 11/10/24 11/10/24 03:02 03:58 04:23 WBC 10.2 H RBC 5.32 Hgb 16.3 Hct 47.8 MCV 89.8 MCH 30.6 MCHC 34.1 RDW 14.0 Plt Count 212 MPV 9.7 Puncture Site ABG pH ABG pCO2 ABG pO2 ABG PO2/FiO2 Ratio ABG HCO3 ABG O2 Saturation ABG O2 Content ABG Base Excess A-a Gradient Oxyhemoglobin Total Hemoglobin O2 Delivery Device O2 Liters/Min FiO2 Sodium 154 H Potassium 4.4 Chloride 122 H Carbon Dioxide 13 L Anion Gap 19 H BUN 20 Creatinine 0.79 Estim Creat Clear Calc 104 Estimated GFR > 60 Glucose 273 H POC Capillary Glucose 205 H 230 H Calcium 9.8 Phosphorus Magnesium 2.5 H Total Bilirubin 0.9 AST 10 L ALT 14 Alkaline Phosphatase 138 H Total Protein 7.0 Albumin 4.1 11/10/24 11/10/24 11/10/24 04:59 06:00 06:55 WBC RBC Hgb Hct MCV MCH MCHC RDW Plt Count MPV Puncture Site ABG pH ABG pCO2 ABG pO2 ABG PO2/FiO2 Ratio ABG HCO3 ABG O2 Saturation ABG O2 Content ABG Base Excess A-a Gradient Oxyhemoglobin Total Hemoglobin O2 Delivery Device O2 Liters/Min FiO2 Sodium Potassium Chloride Carbon Dioxide Anion Gap BUN Creatinine Estim Creat Clear Calc Estimated GFR Glucose POC Capillary Glucose 240 H 287 H 296 H Calcium Phosphorus Magnesium Total Bilirubin AST ALT Alkaline Phosphatase Total Protein Albumin 11/10/24 11/10/24 11/10/24 07:52 09:05 09:53 WBC RBC Hgb Hct MCV MCH MCHC RDW Plt Count MPV Puncture Site ABG pH ABG pCO2 ABG pO2 ABG PO2/FiO2 Ratio ABG HCO3 ABG O2 Saturation ABG O2 Content ABG Base Excess A-a Gradient Oxyhemoglobin Total Hemoglobin O2 Delivery Device O2 Liters/Min FiO2 Sodium 151 H Potassium 3.9 Chloride 122 H Carbon Dioxide 17 L Anion Gap 12 BUN 18 Creatinine 0.65 L Estim Creat Clear Calc 124 Estimated GFR > 60 Glucose 275 H POC Capillary Glucose 319 H 329 H Calcium 9.4 Phosphorus Magnesium Total Bilirubin AST ALT Alkaline Phosphatase Total Protein Albumin 11/10/24 11/10/24 11/10/24 10:15 11:02 12:01 WBC RBC Hgb Hct MCV MCH MCHC RDW Plt Count MPV Puncture Site ABG pH ABG pCO2 ABG pO2 ABG PO2/FiO2 Ratio ABG HCO3 ABG O2 Saturation ABG O2 Content ABG Base Excess A-a Gradient Oxyhemoglobin Total Hemoglobin O2 Delivery Device O2 Liters/Min FiO2 Sodium Potassium Chloride Carbon Dioxide Anion Gap BUN Creatinine Estim Creat Clear Calc Estimated GFR Glucose POC Capillary Glucose 232 H 262 H 225 H Calcium Phosphorus Magnesium Total Bilirubin AST ALT Alkaline Phosphatase Total Protein Albumin 11/10/24 11/10/24 11/10/24 13:01 14:05 14:38 WBC RBC Hgb Hct MCV MCH MCHC RDW Plt Count MPV Puncture Site ABG pH ABG pCO2 ABG pO2 ABG PO2/FiO2 Ratio ABG HCO3 ABG O2 Saturation ABG O2 Content ABG Base Excess A-a Gradient Oxyhemoglobin Total Hemoglobin O2 Delivery Device O2 Liters/Min FiO2 Sodium 151 H Potassium 3.5 Chloride 120 H Carbon Dioxide 19 L Anion Gap 12 BUN 16 Creatinine 0.71 Estim Creat Clear Calc 115 Estimated GFR > 60 Glucose 207 H POC Capillary Glucose 211 H 232 H Calcium 9.2 Phosphorus Magnesium Total Bilirubin AST ALT Alkaline Phosphatase Total Protein Albumin 11/10/24 11/10/24 15:01 15:59 WBC RBC Hgb Hct MCV MCH MCHC RDW Plt Count MPV Puncture Site ABG pH ABG pCO2 ABG pO2 ABG PO2/FiO2 Ratio ABG HCO3 ABG O2 Saturation ABG O2 Content ABG Base Excess A-a Gradient Oxyhemoglobin Total Hemoglobin O2 Delivery Device O2 Liters/Min FiO2 Sodium Potassium Chloride Carbon Dioxide Anion Gap BUN Creatinine Estim Creat Clear Calc Estimated GFR Glucose POC Capillary Glucose 195 H 227 H Calcium Phosphorus Magnesium Total Bilirubin AST ALT Alkaline Phosphatase Total Protein Albumin Quality VTE Prophylaxis VTE prophylaxis: mechanical ordered
[2024-11-10 18:03] LABS: Glucose Point of Care 279 mg/dl (65-105)
[2024-11-10 18:15] LABS: Anion Gap 14 mmol/L (4-12); Blood Urea Nitrogen 15 mg/dL (9-20); Carbon Dioxide 16 mmol/L (22-30); Chloride 119 mmol/L (98-107); Estimated CRCL calculation 116 ml/min; Estimated Glomerular Filt Rate > 60; Glucose 287 mg/dL (65-110); Phosphorus 2.4 mg/dL (2.5-4.5); Potassium 3.9 mmol/L (3.4-5.0); Sodium 149 mmol/L (137-145)
[2024-11-10 19:01] LABS: Glucose Point of Care 304 mg/dl (65-105)
[2024-11-10 20:10] LABS: Glucose Point of Care 297 mg/dl (65-105)
[2024-11-10 20:59] LABS: Glucose Point of Care 280 mg/dl (65-105)
[2024-11-10 21:55] LABS: Glucose Point of Care 283 mg/dl (65-105)
[2024-11-10 22:36] LABS: Anion Gap 11 mmol/L (4-12); Blood Urea Nitrogen 13 mg/dL (9-20); Carbon Dioxide 19 mmol/L (22-30); Chloride 118 mmol/L (98-107); Estimated CRCL calculation 119 ml/min; Estimated Glomerular Filt Rate > 60; Glucose 266 mg/dL (65-110); Potassium 3.7 mmol/L (3.4-5.0); Sodium 148 mmol/L (137-145)
[2024-11-11] VITALS (19 sets, daily range): BP systolic 132–171; BP diastolic 71–105; PULSE 96–112; RESP 15–29; TEMP 36.6–39.4; O2SAT 94–99
[2024-11-11] MEDS: ACETAMINOPHEN 650 MG SUPPOSITORY RECTAL ×2 (01:27→08:09)
[2024-11-11 02:14] LABS: Anion Gap 13 mmol/L (4-12); Blood Urea Nitrogen 13 mg/dL (9-20); Calcium 8.8 mg/dL (8.4-10.2); Carbon Dioxide 16 mmol/L (22-30); Chloride 117 mmol/L (98-107); Estimated CRCL calculation 130 ml/min; Estimated Glomerular Filt Rate > 60; Glucose 264 mg/dL (65-110); Potassium 3.7 mmol/L (3.4-5.0); Sodium 146 mmol/L (137-145)
--- NOTE | 2024-11-11 02:27 | PC.NURSE ---
Blood glucose results verified on glucometer. Results not transferring from glucometer to [facility] at this time. Charge and fuel system maintenance supervisor notified. Work order placed.
[2024-11-11] MEDS: KCL 20 MEQ/D5W 1,000 ML 1,000 ML 150 ML IV CONT (02:47)
[2024-11-11 04:34] LABS: Glucose Point of Care 282 mg/dl (65-105)
[2024-11-11 04:34] LABS: Glucose Point of Care 227 mg/dl (65-105)
[2024-11-11 04:34] LABS: Glucose Point of Care 208 mg/dl (65-105)
[2024-11-11 04:34] LABS: Glucose Point of Care 280 mg/dl (65-105)
[2024-11-11 04:34] LABS: Glucose Point of Care 184 mg/dl (65-105)
[2024-11-11 04:34] LABS: Glucose Point of Care 264 mg/dl (65-105)
[2024-11-11 06:01] LABS: Glucose Point of Care 300 mg/dl (65-105)
[2024-11-11 06:06] LABS: Hematocrit 41.3 % (42.0-52.0); Mean Corpuscular HGB Conc 33.9 g/dl (32-36); Mean Corpuscular Hemoglobin 30.5 pg (26-34); Mean Platelet Volume 9.9 fl (7.4-10.4); Platelet Count Result 176 k/mm3 (150-375); Red Blood Count 4.59 M/mm3 (4.6-6.20); Red Cell Distribution Width 13.4 % (11.5-14.5); White Blood Count 7.8 K/mm3 (4.5-10.0)
[2024-11-11 06:24] LABS: Alanine Aminotransferase 14 U/L (6-50); Albumin Level 3.5 g/dL (3.5-5.1); Alkaline Phosphatase 102 U/L (38-126); Anion Gap 8 mmol/L (4-12); Aspartate Amino Transferase 13 U/L (17-59); Bilirubin,Total 1.1 mg/dL (0.2-1.3); Blood Urea Nitrogen 13 mg/dL (9-20); Calcium 8.8 mg/dL (8.4-10.2); Carbon Dioxide 21 mmol/L (22-30); Chloride 116 mmol/L (98-107); Estimated CRCL calculation 136 ml/min; Estimated Glomerular Filt Rate > 60; Glucose 282 mg/dL (65-110); Magnesium 1.9 mg/dL (1.6-2.3); Phosphorus 2.2 mg/dL (2.5-4.5); Potassium 3.6 mmol/L (3.4-5.0); Sodium 145 mmol/L (137-145)
[2024-11-11 07:11] LABS: Glucose Point of Care 213 mg/dl (65-105)
[2024-11-11] MEDS: ENOXAPARIN 40 MG/0.4 ML SYRINGE SUB-Q (08:07)
[2024-11-11] MEDS: PANTOPRAZOLE SODIUM IV 40 MG VIAL IV PUSH (08:07)
[2024-11-11] MEDS: KCL 20 MEQ/0.45% NS 1,000 ML 50 ML IV CONT (08:34)
[2024-11-11 08:38] LABS: Glucose Point of Care 212 mg/dl (65-105)
[2024-11-11 08:53] LABS: Add Urine Microscopic? YES; Appearance Urine Cloudy (Clear); Bacteria Urine 4+ /hpf; Bilirubin Urine Negative (Negative); Blood Urine Negative (Negative); Color Urine Yellow (Yellow); Glucose Urine UA 3+ mg/dL (Negative); Ketones Urine Negative (Negative); Leukocyte Esterase Ur Negative LEU/UL (Negative); Nitrate Urine Positive (Negative); Non Pathogenic Casts 0-2; Protein Urine 1+ mg/dL (Negative); RBC Urine 0-2 /hpf (0-2); Specific Grav Ur 1.024 (1.001-1.035); Squamous Epithelial Cell Urine None Seen /hpf (Few)
[2024-11-11] MEDS: POTASSIUM PHOS,M-BASIC-D-BASIC 20 MMOL in SODIUM CHLORIDE 0.9% IV 250 ML 64.17 MMOL IVPB (09:02)
[2024-11-11 09:12] LABS: Glucose Point of Care 170 mg/dl (65-105)
[2024-11-11 09:23] LABS: INR 1.3; Partial Thromboplastin Time 28.1 Seconds (22.3-36.8); Prothrombin Time 16.3 Seconds (11.1-14.7)
--- NOTE | 2024-11-11 09:40 | WPDINTPN ---
Progress Note: A&P Assessment and Plan (1) Encephalopathy: Code(s): G93.40 - Encephalopathy, unspecified Status: Acute Assessment and Plan: Patient presented with altered mental status. Head CT was negative. Patient likely has metabolic encephalopathy which can be explained by significant metabolic and electrolyte derangements that he presented His Ammonia normal, thyroid function test were reviewed Infectious sources were entertained but no objective evidence of infection at that time. Patient was afebrile. WBC has normalized. Procalcitonin level is low. Lactic acid is normal. Neuro exam is nonfocal. He has significant metabolic derangements to explain encephalopathy Patient was also evaluated by Neurology Now it has been more than 48 hours although patient has clinically improved but he does not appear close to his baseline. He does answer some question, exam remains nonfocal and he is partially oriented Overnight patient is now having some fever I will obtain MRI and also request IR for an LP. Hold any antibiotics or antivirals at this time unless LP was also abnormal Continue monitoring. (2) DKA (diabetic ketoacidosis): Code(s): E11.10 - Type 2 diabetes mellitus with ketoacidosis without coma Status: Inactive Assessment and Plan: Pt was given IVF bolus and and is currently on IV fluids and insulin infusion Serial labs are being done Electrolytes are being replaced His anion gap has closed. I will switch him to half-normal saline and continue insulin infusion for now until p.o. intake is a certain Will request speech therapy to evaluate swallow evaluation (3) Acute dehydration: Code(s): E86.0 - Dehydration Status: Inactive Assessment and Plan: Patient presented with significant dehydration with hypernatremia. His sodium and chloride has improved over last few days with IV fluids. I will now switch his fluids from dextrose to half-normal saline with potassium Continue IV fluids at a low rate Monitor urine output (4) DANIEL (acute kidney injury): Code(s): N17.9 - Acute kidney failure, unspecified Status: Acute Assessment and Plan: Likely secondary to dehydration from DKA Normal CK, Un remark renal ultrasound Continue IV fluids Creatinine improved and normalized Monitor urine output electrolytes and creatinine (5) Leukocytosis: Code(s): D72.829 - Elevated white blood cell count, unspecified Status: Acute Assessment and Plan: Likely secondary to DKA. UA unremarkable chest x-ray negative. Patient afebrile. Low procalcitonin level normal lactic acid level, cultures were done in the ER and pending. Hold any antibiotics at this time WBC now normalized Overnight patient had fevers although his WBC has now normalized. This could be from atelectasis but I will check checks x-ray, repeat flu swab Check UA and procalcitonin level (6) Electrolyte abnormality: Code(s): E87.8 - Other disorders of electrolyte and fluid balance, not elsewhere classified Status: Acute Assessment and Plan: Patient presented with significant hypernatremia which was initially mass by hyperglycemia. As hyperglycemia is improved his hyponatremia has became obvious. He also has hyperchloremia He was on D5 water with potassium to bring the sodium and chloride level down slowly. Sodium is now in high normal range. I will switch his fluids to half-normal saline the task Potassium and phosphate also being replaced Plan DVT prophylaxis -Lovenox Nutrition -npo Code Status - Full Code We were able to get from the patient's son and brother. Limited history was obtained from them and they told t us that patient has some back issue and some shoulder surgery in the past but nothing conclusive or detailed. Total Critical Care Time - 30 minutes Due to a high probability of clinically significant, life threatening deterioration, the patient required my highest level of preparedness to intervene emergently and I personally spent this critical care time directly and personally managing the patient. This critical care time included obtaining a history; examining the patient; pulse oximetry; ordering and review of studies; arranging urgent treatment with development of a management plan; evaluation of patient's response to treatment; frequent reassessment; and discussions with other providers. It was exclusive of separately billable procedures and treating other patients and teaching time. Please see Assessment and Plan section and the rest of the note for further information on patient assessment and treatment Subjective Date/time seen: 11/11/24 Patient appears like little bit more awake and less confused this morning. He is answering some questions but does not appear close to his baseline. He was able to tell me his name. He denied any pain but admitted to feeling short of breath. He could not tell me where he was and root in the hospital. He was also not able to tell me his past medical history. When asking questions he often looks towards examiner with blank stare. He does follow commands with all 4 extremities. States that he is feeling cold. He was able to tell me the president is Bryson he is in hospital but did not know name of the hospital or ER. Again review of system was not obtainable. Overnight patient has had low-grade fevers. His urine output has been adequate. He is sinus rhythm and is overall tachycardia has improved since coming to the hospital. He is on room air. His blood pressure has improved. Review of Systems Review of Systems: ROS unobtainable: Yes unobtainable due to mental status Exam Narrative: General: Pt is awake but confused. Lungs/Chest: Trachea central Clear BS B/L, No crackles or wheezing. Mild tachypnea Cardiac: RRR. Normal S1 S2. No murmurs Circulation: Pedal pulses are intact and symmetrical. Abdomen: Normal bowel sounds.. Soft. NT. ND. Extremities: No clubbing, cyanosis or edema. Warm : [place]ll[place] in place Neurologic: Awake with eyes open and confused answers some question but but at other times a keeps on repeating yes, Follows commands with and Moves all 4 extremities PERRL AO x1 Skin: No Rash Objective Data Vital Signs Vital Signs: Vital Signs - 24 hr 11/10/24 10:00 11/10/24 10:00 11/10/24 12:00 Temperature Pulse Rate 122 H 124 H 122 H Respiratory Rate 33 H 25 H Blood Pressure 163/94 H Pulse Oximetry 97 98 Oxygen Delivery Room Air 11/10/24 12:00 11/10/24 12:00 11/10/24 13:19 Temperature 37.3 C Pulse Rate 122 H 116 H 120 H Respiratory Rate 25 H Blood Pressure 150/93 H Pulse Oximetry 98 Oxygen Delivery 11/10/24 14:00 11/10/24 14:00 11/10/24 16:00 Temperature Pulse Rate 100 99 109 H Respiratory Rate 34 H 31 H Blood Pressure 132/76 Pulse Oximetry 99 99 Oxygen Delivery Room Air 11/10/24 16:00 11/10/24 16:00 11/10/24 18:00 Temperature 37.4 C Pulse Rate 109 H 113 H 113 H Respiratory Rate 31 H 33 H Blood Pressure 138/71 158/102 H Pulse Oximetry 99 98 Oxygen Delivery 11/10/24 18:00 11/10/24 20:00 11/10/24 20:00 Temperature 37.5 C Pulse Rate 101 H 115 H 96 Respiratory Rate 32 H 16 Blood Pressure 155/100 H Pulse Oximetry 98 97 Oxygen Delivery Room Air 11/10/24 20:00 11/10/24 20:05 11/10/24 22:00 Temperature Pulse Rate 114 H 114 H 106 H Respiratory Rate Blood Pressure Pulse Oximetry Oxygen Delivery 11/10/24 22:00 11/11/24 00:00 11/11/24 00:00 Temperature Pulse Rate 106 H 109 H 109 H Respiratory Rate 35 H 21 H 21 H Blood Pressure 133/81 132/71 Pulse Oximetry 98 96 96 Oxygen Delivery Room Air 11/11/24 00:00 11/11/24 01:05 11/11/24 01:27 Temperature 39.4 C H 39.4 C H Pulse Rate 110 H Respiratory Rate Blood Pressure Pulse Oximetry Oxygen Delivery 11/11/24 02:00 11/11/24 02:00 11/11/24 02:27 Temperature 39.1 C H 38.0 C H Pulse Rate 112 H 112 H Respiratory Rate 29 H Blood Pressure 148/89 H Pulse Oximetry 96 Oxygen Delivery 11/11/24 04:00 11/11/24 04:00 11/11/24 04:00 Temperature 37.3 C Pulse Rate 105 H 104 H 105 H Respiratory Rate 26 H 26 H Blood Pressure 141/90 H Pulse Oximetry 96 96 Oxygen Delivery Room Air 11/11/24 06:00 11/11/24 06:00 11/11/24 08:00 Temperature 37.8 C H 38.2 C H Pulse Rate 108 H 108 H 112 H Respiratory Rate 24 H 21 H Blood Pressure 143/89 H 152/95 H Pulse Oximetry 98 98 Oxygen Delivery 11/11/24 08:09 11/11/24 09:10 Temperature 38.2 C H 37.9 C H Pulse Rate Respiratory Rate Blood Pressure Pulse Oximetry Oxygen Delivery Intake/Output Intake/Output: Intake & Output 11/08/24 11/09/24 11/10/24 11/11/24 23:59 23:59 23:59 23:59 Intake Total 1421.3333 4288.9667 1903.9 Output Total 1300 1450 1000 Balance 121.3333 2838.9667 903.9 Meds/Results Medications: Active Medications Generic Name Dose Route Start Last Admin Trade Name Freq PRN Reason Stop Dose Admin Acetaminophen 650 mg 11/11/24 01:12 11/11/24 08:09 Acetaminophen 650 Mg Suppository RECTAL 650 mg Q4H PRN Administration Mild Pain (1-3) or Fever Dextrose 12.5 gm 11/09/24 08:22 Dextrose 50% 25 Gm/50 Ml Syringe IV PUSH PRN PRN Hypoglycemia Protocol Enoxaparin Sodium 40 mg 11/10/24 09:00 11/11/24 08:07 Enoxaparin 40 Mg/0.4 Ml Syringe SUB-Q 40 mg DAILY KIKE Administration Glucagon 1 mg 11/09/24 08:22 Glucagon For Inj 1 Mg Vial IM PRN PRN Hypoglycemia Protocol Glucose 15 gm 11/09/24 08:22 Glucose Oral Gel 15 Gm Of Glucse In 37.5 Gm Tube PO PRN PRN Hypoglycemia Protocol Insulin Human Regular 100 100 mls @ 1 mls/hr 11/09/24 08:30 11/11/24 09:05 units/ Sodium Chloride IV CONT 1 units/hr .Q24H KIKE 1 mls/hr Titration Protocol 1 UNITS/HR Dextrose 1,000 mls @ 100 mls/hr 11/09/24 08:22 Dextrose 5% 1,000 Ml IVPB PRN PRN Hypoglycemia Protocol Potassium Phosphate 20 mmol/ 256.6667 mls @ 64.167 mls/hr 11/11/24 09:00 11/11/24 09:02 Sodium Chloride IVPB 11/11/24 12:59 64.17 mls/hr ONCE ONE Administration Potassium Chloride/Sodium Chloride 1,000 mls @ 50 mls/hr 11/11/24 09:00 11/11/24 08:34 Kcl 20 Meq/0.45% Ns IV CONT 50 mls/hr .Q20H KIKE Administration Labetalol HCl 20 mg 11/10/24 10:59 11/10/24 20:05 Labetalol Hcl Inj 100 Mg/20 Ml Vial IV PUSH 20 mg Q4H PRN Administration SBP > 160 and HR> 60 -1st choice Pantoprazole Sodium 40 mg 11/10/24 09:00 11/11/24 08:07 Pantoprazole Sodium Iv 40 Mg Vial IV PUSH 40 mg QAM KIKE Administration Radiology Results: ITS Impressions Head CT 11/09/24 09:07 IMPRESSION: No acute intracranial findings. Renal Ultrasound 11/09/24 11:13 IMPRESSION: 1. Normal kidneys. No hydronephrosis. Labs Labs: Laboratory Results - last 24 hr 11/10/24 11/10/24 11/10/24 09:53 10:15 11:02 WBC RBC Hgb Hct MCV MCH MCHC RDW Plt Count MPV PT INR APTT Sodium 151 H Potassium 3.9 Chloride 122 H Carbon Dioxide 17 L Anion Gap 12 BUN 18 Creatinine 0.65 L Estim Creat Clear Calc 124 Estimated GFR > 60 Glucose 275 H POC Capillary Glucose 232 H 262 H Calcium 9.4 Phosphorus Magnesium Total Bilirubin AST ALT Alkaline Phosphatase Total Protein Albumin Urine Color Urine Appearance Urine pH Ur Specific Brandon Urine Protein Urine Glucose (UA) Urine Ketones Ur Blood (Man) Urine Nitrate Urine Bilirubin Urine Urobilinogen Leukocyte Esterase Rfl Urine RBC Urine WBC Ur Squamous Epith Cells Urine Bacteria Urine Casts 11/10/24 11/10/24 11/10/24 12:01 13:01 14:05 WBC RBC Hgb Hct MCV MCH MCHC RDW Plt Count MPV PT INR APTT Sodium Potassium Chloride Carbon Dioxide Anion Gap BUN Creatinine Estim Creat Clear Calc Estimated GFR Glucose POC Capillary Glucose 225 H 211 H 232 H Calcium Phosphorus Magnesium Total Bilirubin AST ALT Alkaline Phosphatase Total Protein Albumin Urine Color Urine Appearance Urine pH Ur Specific Brandon Urine Protein Urine Glucose (UA) Urine Ketones Ur Blood (Man) Urine Nitrate Urine Bilirubin Urine Urobilinogen Leukocyte Esterase Rfl Urine RBC Urine WBC Ur Squamous Epith Cells Urine Bacteria Urine Casts 11/10/24 11/10/24 11/10/24 14:38 15:01 15:59 WBC RBC Hgb Hct MCV MCH MCHC RDW Plt Count MPV PT INR APTT Sodium 151 H Potassium 3.5 Chloride 120 H Carbon Dioxide 19 L Anion Gap 12 BUN 16 Creatinine 0.71 Estim Creat Clear Calc 115 Estimated GFR > 60 Glucose 207 H POC Capillary Glucose 195 H 227 H Calcium 9.2 Phosphorus Magnesium Total Bilirubin AST ALT Alkaline Phosphatase Total Protein Albumin Urine Color Urine Appearance Urine pH Ur Specific Brandon Urine Protein Urine Glucose (UA) Urine Ketones Ur Blood (Man) Urine Nitrate Urine Bilirubin Urine Urobilinogen Leukocyte Esterase Rfl Urine RBC Urine WBC Ur Squamous Epith Cells Urine Bacteria Urine Casts 11/10/24 11/10/24 11/10/24 17:52 17:59 17:59 WBC RBC Hgb Hct MCV MCH MCHC RDW Plt Count MPV PT INR APTT Sodium Cancelled 149 H Potassium Cancelled Chloride Carbon Dioxide Anion Gap BUN Creatinine Estim Creat Clear Calc Estimated GFR Glucose POC Capillary Glucose 279 H Calcium Phosphorus Magnesium Total Bilirubin AST ALT Alkaline Phosphatase Total Protein Albumin Urine Color Urine Appearance Urine pH Ur Specific Brandon Urine Protein Urine Glucose (UA) Urine Ketones Ur Blood (Man) Urine Nitrate Urine Bilirubin Urine Urobilinogen Leukocyte Esterase Rfl Urine RBC Urine WBC Ur Squamous Epith Cells Urine Bacteria Urine Casts 11/10/24 11/10/24 11/10/24 17:59 17:59 17:59 WBC RBC Hgb Hct MCV MCH MCHC RDW Plt Count MPV PT INR APTT Sodium Potassium 3.9 Chloride Cancelled 119 H Carbon Dioxide Cancelled 16 L Anion Gap Cancelled BUN Creatinine Estim Creat Clear Calc Estimated GFR Glucose POC Capillary Glucose Calcium Phosphorus Magnesium Total Bilirubin AST ALT Alkaline Phosphatase Total Protein Albumin Urine Color Urine Appearance Urine pH Ur Specific Brandon Urine Protein Urine Glucose (UA) Urine Ketones Ur Blood (Man) Urine Nitrate Urine Bilirubin Urine Urobilinogen Leukocyte Esterase Rfl Urine RBC Urine WBC Ur Squamous Epith Cells Urine Bacteria Urine Casts 11/10/24 11/10/24 11/10/24 17:59 17:59 17:59 WBC RBC Hgb Hct MCV MCH MCHC RDW Plt Count MPV PT INR APTT Sodium Potassium Chloride Carbon Dioxide Anion Gap 14 H BUN Cancelled 15 Creatinine Cancelled 0.70 Estim Creat Clear Calc Cancelled Estimated GFR Glucose POC Capillary Glucose Calcium Phosphorus Magnesium Total Bilirubin AST ALT Alkaline Phosphatase Total Protein Albumin Urine Color Urine Appearance Urine pH Ur Specific Brandon Urine Protein Urine Glucose (UA) Urine Ketones Ur Blood (Man) Urine Nitrate Urine Bilirubin Urine Urobilinogen Leukocyte Esterase Rfl Urine RBC Urine WBC Ur Squamous Epith Cells Urine Bacteria Urine Casts 11/10/24 11/10/24 11/10/24 17:59 17:59 17:59 WBC RBC Hgb Hct MCV MCH MCHC RDW Plt Count MPV PT INR APTT Sodium Potassium Chloride Carbon Dioxide Anion Gap BUN Creatinine Estim Creat Clear Calc 116 Estimated GFR Cancelled > 60 Glucose Cancelled 287 H POC Capillary Glucose Calcium Cancelled Phosphorus Magnesium Total Bilirubin AST ALT Alkaline Phosphatase Total Protein Albumin Urine Color Urine Appearance Urine pH Ur Specific Brandon Urine Protein Urine Glucose (UA) Urine Ketones Ur Blood (Man) Urine Nitrate Urine Bilirubin Urine Urobilinogen Leukocyte Esterase Rfl Urine RBC Urine WBC Ur Squamous Epith Cells Urine Bacteria Urine Casts 11/10/24 11/10/24 11/10/24 17:59 18:59 20:01 WBC RBC Hgb Hct MCV MCH MCHC RDW Plt Count MPV PT INR APTT Sodium Potassium Chloride Carbon Dioxide Anion Gap BUN Creatinine Estim Creat Clear Calc Estimated GFR Glucose POC Capillary Glucose 304 H 297 H Calcium 9.0 Phosphorus 2.4 L Magnesium Total Bilirubin AST ALT Alkaline Phosphatase Total Protein Albumin Urine Color Urine Appearance Urine pH Ur Specific Brandon Urine Protein Urine Glucose (UA) Urine Ketones Ur Blood (Man) Urine Nitrate Urine Bilirubin Urine Urobilinogen Leukocyte Esterase Rfl Urine RBC Urine WBC Ur Squamous Epith Cells Urine Bacteria Urine Casts 11/10/24 11/10/24 11/10/24 20:57 21:54 22:21 WBC RBC Hgb Hct MCV MCH MCHC RDW Plt Count MPV PT INR APTT Sodium 148 H Potassium 3.7 Chloride 118 H Carbon Dioxide 19 L Anion Gap 11 BUN 13 Creatinine 0.68 L Estim Creat Clear Calc 119 Estimated GFR > 60 Glucose 266 H POC Capillary Glucose 280 H 283 H Calcium 9.0 Phosphorus Magnesium Total Bilirubin AST ALT Alkaline Phosphatase Total Protein Albumin Urine Color Urine Appearance Urine pH Ur Specific Brandon Urine Protein Urine Glucose (UA) Urine Ketones Ur Blood (Man) Urine Nitrate Urine Bilirubin Urine Urobilinogen Leukocyte Esterase Rfl Urine RBC Urine WBC Ur Squamous Epith Cells Urine Bacteria Urine Casts 11/10/24 11/10/24 11/11/24 22:56 23:57 01:01 WBC RBC Hgb Hct MCV MCH MCHC RDW Plt Count MPV PT INR APTT Sodium Potassium Chloride Carbon Dioxide Anion Gap BUN Creatinine Estim Creat Clear Calc Estimated GFR Glucose POC Capillary Glucose 227 H 184 H 208 H Calcium Phosphorus Magnesium Total Bilirubin AST ALT Alkaline Phosphatase Total Protein Albumin Urine Color Urine Appearance Urine pH Ur Specific Brandon Urine Protein Urine Glucose (UA) Urine Ketones Ur Blood (Man) Urine Nitrate Urine Bilirubin Urine Urobilinogen Leukocyte Esterase Rfl Urine RBC Urine WBC Ur Squamous Epith Cells Urine Bacteria Urine Casts 11/11/24 11/11/24 11/11/24 01:54 02:01 02:52 WBC RBC Hgb Hct MCV MCH MCHC RDW Plt Count MPV PT INR APTT Sodium 146 H Potassium 3.7 Chloride 117 H Carbon Dioxide 16 L Anion Gap 13 H BUN 13 Creatinine 0.62 L Estim Creat Clear Calc 130 Estimated GFR > 60 Glucose 264 H POC Capillary Glucose 264 H 282 H Calcium 8.8 Phosphorus Magnesium Total Bilirubin AST ALT Alkaline Phosphatase Total Protein Albumin Urine Color Urine Appearance Urine pH Ur Specific Brandon Urine Protein Urine Glucose (UA) Urine Ketones Ur Blood (Man) Urine Nitrate Urine Bilirubin Urine Urobilinogen Leukocyte Esterase Rfl Urine RBC Urine WBC Ur Squamous Epith Cells Urine Bacteria Urine Casts 11/11/24 11/11/24 11/11/24 03:48 05:54 05:59 WBC 7.8 RBC 4.59 L Hgb 14.0 Hct 41.3 L MCV 90.0 MCH 30.5 MCHC 33.9 RDW 13.4 Plt Count 176 MPV 9.9 PT INR APTT Sodium 145 Potassium 3.6 Chloride 116 H Carbon Dioxide 21 L Anion Gap 8 BUN 13 Creatinine 0.59 L Estim Creat Clear Calc 136 Estimated GFR > 60 Glucose 282 H POC Capillary Glucose 280 H 300 H Calcium 8.8 Phosphorus 2.2 L Magnesium 1.9 Total Bilirubin 1.1 AST 13 L ALT 14 Alkaline Phosphatase 102 Total Protein 7.0 Albumin 3.5 Urine Color Urine Appearance Urine pH Ur Specific Brandon Urine Protein Urine Glucose (UA) Urine Ketones Ur Blood (Man) Urine Nitrate Urine Bilirubin Urine Urobilinogen Leukocyte Esterase Rfl Urine RBC Urine WBC Ur Squamous Epith Cells Urine Bacteria Urine Casts 11/11/24 11/11/24 11/11/24 07:10 08:05 08:33 WBC RBC Hgb Hct MCV MCH MCHC RDW Plt Count MPV PT INR APTT Sodium Potassium Chloride Carbon Dioxide Anion Gap BUN Creatinine Estim Creat Clear Calc Estimated GFR Glucose POC Capillary Glucose 213 H 212 H Calcium Phosphorus Magnesium Total Bilirubin AST ALT Alkaline Phosphatase Total Protein Albumin Urine Color Yellow Urine Appearance Cloudy H Urine pH 6.0 Ur Specific Brandon 1.024 Urine Protein 1+ H Urine Glucose (UA) 3+ H Urine Ketones Negative Ur Blood (Man) Negative Urine Nitrate Positive H Urine Bilirubin Negative Urine Urobilinogen 1.0 Leukocyte Esterase Rfl Negative Urine RBC 0-2 Urine WBC 6-10 H Ur Squamous Epith Cells None seen Urine Bacteria 4+ H Urine Casts 0-2 11/11/24 09:05 WBC RBC Hgb Hct MCV MCH MCHC RDW Plt Count MPV PT 16.3 H INR 1.3 APTT 28.1 Sodium Potassium Chloride Carbon Dioxide Anion Gap BUN Creatinine Estim Creat Clear Calc Estimated GFR Glucose POC Capillary Glucose 170 H Calcium Phosphorus Magnesium Total Bilirubin AST ALT Alkaline Phosphatase Total Protein Albumin Urine Color Urine Appearance Urine pH Ur Specific Brandon Urine Protein Urine Glucose (UA) Urine Ketones Ur Blood (Man) Urine Nitrate Urine Bilirubin Urine Urobilinogen Leukocyte Esterase Rfl Urine RBC Urine WBC Ur Squamous Epith Cells Urine Bacteria Urine Casts Quality VTE Prophylaxis VTE prophylaxis: mechanical ordered
[2024-11-11 10:05] LABS: Glucose Point of Care 207 mg/dl (65-105)
[2024-11-11 10:15] LABS: Procalcitonin 0.2 ng/mL
--- NOTE | 2024-11-11 10:35 | PCFNICU ---
Addendum entered by Swathi Angel RD, LDN 11/11/24 11:37: Spoke with nursing and [employer], plans for trickle feedings of Glucerna 1.2 at 20 ml/hr. Flush 30 ml q 4 hours. Following. Original Note: ICU Rounding Note: Pt current nutrition is NPO. Last recorded weight is 74.9 kg, down from 75.2 kg on admit. Bowel Motility: No BM reported. Labs Reviewed: PO4 2.2, Hct 41.3, Glu 282, Cr 0.59 Meds Noted: Insulin, Protonix, KCL Skin: WNL Additional Notes: Patient remains NPO. Speech bedside eval today, recommending MBS. Plans for MRI today. Education is not appropriate at this time. Following daily in ICU rounds. Will monitor weight, labs, skin, labs, diet orders, meds every 3 days.
[2024-11-11 10:36] LABS: Anion Gap 10 mmol/L (4-12); Blood Urea Nitrogen 12 mg/dL (9-20); Calcium 8.9 mg/dL (8.4-10.2); Carbon Dioxide 22 mmol/L (22-30); Chloride 114 mmol/L (98-107); Estimated CRCL calculation 140 ml/min; Estimated Glomerular Filt Rate > 60; Glucose 184 mg/dL (65-110); Potassium 3.7 mmol/L (3.4-5.0); Sodium 146 mmol/L (137-145)
--- NOTE | 2024-11-11 10:40 | PCSTNOTE ---
Please refer to the Bedside Swallow Evaluation in the EMR. Please note, silent aspiration cannot be ruled out at bedside. The above pt was seen for a swallow evaluation at the bedside. He was positioned upright in the bed for the evaluation. Pt was alert with eyes open, but he did not initiate any verbalizations. Oral mucosa was dry; dentition was fair, as missing teeth were noted. Upon request to vocalize a prolonged vowel, his vocal quality was clear. Pt was initially presented with ice chips, 5 ml thin liquid via spoon, 1/2 tsp pudding, and 1 full tsp of pudding via a spoon the. The oral stages appeared functionally intact in that no leakage or pocketing was noted but oral transit was slightly prolonged. Upon triggering the pharyngeal swallow, laryngeal elevation appeared adequate, but multiple dry swallows were noted after the initial swallow, posing concern for possible pharyngeal residual. Coughing was also exhibited after the swallow. Vocal quality remained clear. ST retested all consistencies, 5 ml water with no overt s/s of aspiration then pudding which again revealed cough and throat clearing. At that time testing was stopped as it was felt that an MBS was needed to further assess swallow, rule out aspiration and/or pharyngeal residual, determine a safe diet and an appropriate POC if indicated. Impression: questionable degree of dysphagia due to consistent overt s/s of aspiration after the trials of pudding. Recommendation: MBS recommended; NPO except ice chips until MBS; stated to complete MBS tomorrow as the pt is getting a few other tests today.
[2024-11-11 11:08] LABS: Glucose Point of Care 211 mg/dl (65-105)
[2024-11-11 11:08] LABS: Influenza A QL RT-PCR Negative (Negative); Influenza B QL RT-PCR Negative (Negative); RSV RNA, RT-PCR Negative (Negative); SARS-CoV-2 RNA PCR Negative (Negative)
--- NOTE | 2024-11-11 11:22 | P.PNNEUR_ITS ---
Progress Note: A&P Assessment and Plan (1) Metabolic encephalopathy: Code(s): G93.41 - Metabolic encephalopathy Status: Acute (2) DKA, type 2: Code(s): E11.10 - Type 2 diabetes mellitus with ketoacidosis without coma Status: Acute (3) DANIEL (acute kidney injury): Code(s): N17.9 - Acute kidney failure, unspecified Status: Acute (4) Electrolyte abnormality: Code(s): E87.8 - Other disorders of electrolyte and fluid balance, not elsewhere classified Status: Acute Plan Despite the effective treatment of the diabetic ketoacidosis the mental status has not completely improved and hence I agree with proceeding with MRI of the brain and spinal tap to look for other concurrent etiologies such as a brainstem stroke or meningeal encephalitis. Supportive care is in place and should continue. Subjective Date/time seen: 11/11/24 11:22 Interval history: Patient is 49-year-old with history of diabetes mellitus admitted to the hospital altered mental status and thought to be in diabetic ketoacidosis. His the bicarb level was very low. Blood gases shown pH of 7.17 and CO2 of the 10.3. His serum glucose of over 800. CT scan head did not show any significant abnormality. EKG shown regular sinus rhythm. He is still somewhat confused but overall showing some improvement as he is more awake. He told me he has family and he is 42 years old and he does not work. He denies any pain. He is however sluggish and drowsy and does not respond all the time to the questions. Review of Systems Review of Systems: ROS unobtainable: Yes unobtainable due to mental status Exam Narrative: Drowsy but arousable and does talk briefly. No aphasia or dysarthria. He was able to follow one-step commands. Cranial nerves on individual testing was grossly intact. His the moving both upper and lower limbs. No involuntary movements or myoclonus were noted. Objective Data Vital Signs Vital Signs: Vital Signs - 24 hr 11/10/24 12:00 11/10/24 12:00 11/10/24 12:00 Temperature 99.2 F Pulse Rate 122 H 122 H 116 H Respiratory Rate 25 H 25 H Blood Pressure 150/93 H Pulse Oximetry 98 98 Oxygen Delivery Room Air 11/10/24 13:19 11/10/24 14:00 11/10/24 14:00 Temperature Pulse Rate 120 H 100 99 Respiratory Rate 34 H Blood Pressure 132/76 Pulse Oximetry 99 Oxygen Delivery 11/10/24 16:00 11/10/24 16:00 11/10/24 16:00 Temperature 99.4 F Pulse Rate 109 H 109 H 113 H Respiratory Rate 31 H 31 H Blood Pressure 138/71 Pulse Oximetry 99 99 Oxygen Delivery Room Air 11/10/24 18:00 11/10/24 18:00 11/10/24 20:00 Temperature Pulse Rate 113 H 101 H 115 H Respiratory Rate 33 H 32 H Blood Pressure 158/102 H Pulse Oximetry 98 98 Oxygen Delivery Room Air 11/10/24 20:00 11/10/24 20:00 11/10/24 20:05 Temperature 99.5 F Pulse Rate 96 114 H 114 H Respiratory Rate 16 Blood Pressure 155/100 H Pulse Oximetry 97 Oxygen Delivery 11/10/24 22:00 11/10/24 22:00 11/11/24 00:00 Temperature Pulse Rate 106 H 106 H 109 H Respiratory Rate 35 H 21 H Blood Pressure 133/81 Pulse Oximetry 98 96 Oxygen Delivery Room Air 11/11/24 00:00 11/11/24 00:00 11/11/24 01:05 Temperature 103.0 F H Pulse Rate 109 H 110 H Respiratory Rate 21 H Blood Pressure 132/71 Pulse Oximetry 96 Oxygen Delivery 11/11/24 01:27 11/11/24 02:00 11/11/24 02:00 Temperature 103.0 F H 102.4 F H Pulse Rate 112 H 112 H Respiratory Rate 29 H Blood Pressure 148/89 H Pulse Oximetry 96 Oxygen Delivery 11/11/24 02:27 11/11/24 04:00 11/11/24 04:00 Temperature 100.4 F H Pulse Rate 105 H 104 H Respiratory Rate 26 H Blood Pressure Pulse Oximetry 96 Oxygen Delivery Room Air 11/11/24 04:00 11/11/24 06:00 11/11/24 06:00 Temperature 99.1 F 100.1 F H Pulse Rate 105 H 108 H 108 H Respiratory Rate 26 H 24 H Blood Pressure 141/90 H 143/89 H Pulse Oximetry 96 98 Oxygen Delivery 11/11/24 08:00 11/11/24 08:00 11/11/24 08:09 Temperature 100.7 F H 100.7 F H Pulse Rate 112 H 112 H Respiratory Rate 21 H 21 H Blood Pressure 152/95 H Pulse Oximetry 98 98 Oxygen Delivery Room Air 11/11/24 09:10 11/11/24 10:00 Temperature 100.2 F H 100.0 F H Pulse Rate 110 H Respiratory Rate 15 Blood Pressure 146/86 H Pulse Oximetry 96 Oxygen Delivery Intake/Output Intake/Output: Intake & Output 11/08/24 11/09/24 11/10/24 11/11/24 23:59 23:59 23:59 23:59 Intake Total 1421.3333 4288.9667 1905.9 Output Total 1300 1450 1000 Balance 121.3333 2838.9667 905.9 Meds/Results Medications: Active Medications Generic Name Dose Route Start Last Admin Trade Name Freq PRN Reason Stop Dose Admin Acetaminophen 650 mg 11/11/24 01:12 11/11/24 08:09 Acetaminophen 650 Mg Suppository RECTAL 650 mg Q4H PRN Administration Mild Pain (1-3) or Fever Dextrose 12.5 gm 11/09/24 08:22 Dextrose 50% 25 Gm/50 Ml Syringe IV PUSH PRN PRN Hypoglycemia Protocol Enoxaparin Sodium 40 mg 11/10/24 09:00 11/11/24 08:07 Enoxaparin 40 Mg/0.4 Ml Syringe SUB-Q 40 mg DAILY KIKE Administration Glucagon 1 mg 11/09/24 08:22 Glucagon For Inj 1 Mg Vial IM PRN PRN Hypoglycemia Protocol Glucose 15 gm 11/09/24 08:22 Glucose Oral Gel 15 Gm Of Glucse In 37.5 Gm Tube PO PRN PRN Hypoglycemia Protocol Insulin Human Regular 100 100 mls @ 1 mls/hr 11/09/24 08:30 11/11/24 11:05 units/ Sodium Chloride IV CONT 1 units/hr .Q24H KIKE 1 mls/hr Titration Protocol 1 UNITS/HR Dextrose 1,000 mls @ 100 mls/hr 11/09/24 08:22 Dextrose 5% 1,000 Ml IVPB PRN PRN Hypoglycemia Protocol Potassium Phosphate 20 mmol/ 256.6667 mls @ 64.167 mls/hr 11/11/24 09:00 10/30 11/23 09:02 Sodium Chloride IVPB 11/11/24 12:59 64.17 mls/hr ONCE ONE Administration Potassium Chloride/Sodium Chloride 1,000 mls @ 50 mls/hr 11/11/24 09:00 11/11/24 08:34 Kcl 20 Meq/0.45% Ns IV CONT 50 mls/hr .Q20H KIEK Administration Labetalol HCl 20 mg 11/10/24 10:59 11/10/24 20:05 Labetalol Hcl Inj 100 Mg/20 Ml Vial IV PUSH 20 mg Q4H PRN Administration SBP > 160 and HR> 60 -1st choice Pantoprazole Sodium 40 mg 11/10/24 09:00 11/11/24 08:07 Pantoprazole Sodium Iv 40 Mg Vial IV PUSH 40 mg QAM KIKE Administration Radiology Results: ITS Impressions Head CT 11/09/24 09:07 IMPRESSION: No acute intracranial findings. Renal Ultrasound 11/09/24 11:13 IMPRESSION: 1. Normal kidneys. No hydronephrosis. Labs Labs: Laboratory Results - last 24 hr 11/10/24 11/10/24 11/10/24 12:01 13:01 14:05 WBC RBC Hgb Hct MCV MCH MCHC RDW Plt Count MPV PT INR APTT Sodium Potassium Chloride Carbon Dioxide Anion Gap BUN Creatinine Estim Creat Clear Calc Estimated GFR Glucose POC Capillary Glucose 225 H 211 H 232 H Calcium Phosphorus Magnesium Total Bilirubin AST ALT Alkaline Phosphatase Total Protein Albumin Procalcitonin Urine Color Urine Appearance Urine pH Ur Specific [place] Urine Protein Urine Glucose (UA) Urine Ketones Ur Blood (Man) Urine Nitrate Urine Bilirubin Urine Urobilinogen Leukocyte Esterase Rfl Urine RBC Urine WBC Ur Squamous Epith Cells Urine Bacteria Urine Casts Influenza A (RT-PCR) Influenza B (RT-PCR) RSV (RT-PCR) SARS-CoV-2 RNA (RT-PCR) 11/10/24 11/10/24 11/10/24 14:38 15:01 15:59 WBC RBC Hgb Hct MCV MCH MCHC RDW Plt Count MPV PT INR APTT Sodium 151 H Potassium 3.5 Chloride 120 H Carbon Dioxide 19 L Anion Gap 12 BUN 16 Creatinine 0.71 Estim Creat Clear Calc 115 Estimated GFR > 60 Glucose 207 H POC Capillary Glucose 195 H 227 H Calcium 9.2 Phosphorus Magnesium Total Bilirubin AST ALT Alkaline Phosphatase Total Protein Albumin Procalcitonin Urine Color Urine Appearance Urine pH Ur Specific [place] Urine Protein Urine Glucose (UA) Urine Ketones Ur Blood (Man) Urine Nitrate Urine Bilirubin Urine Urobilinogen Leukocyte Esterase Rfl Urine RBC Urine WBC Ur Squamous Epith Cells Urine Bacteria Urine Casts Influenza A (RT-PCR) Influenza B (RT-PCR) RSV (RT-PCR) SARS-CoV-2 RNA (RT-PCR) 11/10/24 11/10/24 11/10/24 17:52 17:59 17:59 WBC RBC Hgb Hct MCV MCH MCHC RDW Plt Count MPV PT INR APTT Sodium Cancelled 149 H Potassium Cancelled Chloride Carbon Dioxide Anion Gap BUN Creatinine Estim Creat Clear Calc Estimated GFR Glucose POC Capillary Glucose 279 H Calcium Phosphorus Magnesium Total Bilirubin AST ALT Alkaline Phosphatase Total Protein Albumin Procalcitonin Urine Color Urine Appearance Urine pH Ur Specific [place] Urine Protein Urine Glucose (UA) Urine Ketones Ur Blood (Man) Urine Nitrate Urine Bilirubin Urine Urobilinogen Leukocyte Esterase Rfl Urine RBC Urine WBC Ur Squamous Epith Cells Urine Bacteria Urine Casts Influenza A (RT-PCR) Influenza B (RT-PCR) RSV (RT-PCR) SARS-CoV-2 RNA (RT-PCR) 11/10/24 11/10/24 11/10/24 17:59 17:59 17:59 WBC RBC Hgb Hct MCV MCH MCHC RDW Plt Count MPV PT INR APTT Sodium Potassium 3.9 Chloride Cancelled 119 H Carbon Dioxide Cancelled 16 L Anion Gap Cancelled BUN Creatinine Estim Creat Clear Calc Estimated GFR Glucose POC Capillary Glucose Calcium Phosphorus Magnesium Total Bilirubin AST ALT Alkaline Phosphatase Total Protein Albumin Procalcitonin Urine Color Urine Appearance Urine pH Ur Specific [place] Urine Protein Urine Glucose (UA) Urine Ketones Ur Blood (Man) Urine Nitrate Urine Bilirubin Urine Urobilinogen Leukocyte Esterase Rfl Urine RBC Urine WBC Ur Squamous Epith Cells Urine Bacteria Urine Casts Influenza A (RT-PCR) Influenza B (RT-PCR) RSV (RT-PCR) SARS-CoV-2 RNA (RT-PCR) 11/10/24 11/10/24 11/10/24 17:59 17:59 17:59 WBC RBC Hgb Hct MCV MCH MCHC RDW Plt Count MPV PT INR APTT Sodium Potassium Chloride Carbon Dioxide Anion Gap 14 H BUN Cancelled 15 Creatinine Cancelled 0.70 Estim Creat Clear Calc Cancelled Estimated GFR Glucose POC Capillary Glucose Calcium Phosphorus Magnesium Total Bilirubin AST ALT Alkaline Phosphatase Total Protein Albumin Procalcitonin Urine Color Urine Appearance Urine pH Ur Specific [place] Urine Protein Urine Glucose (UA) Urine Ketones Ur Blood (Man) Urine Nitrate Urine Bilirubin Urine Urobilinogen Leukocyte Esterase Rfl Urine RBC Urine WBC Ur Squamous Epith Cells Urine Bacteria Urine Casts Influenza A (RT-PCR) Influenza B (RT-PCR) RSV (RT-PCR) SARS-CoV-2 RNA (RT-PCR) 11/10/24 11/10/24 11/10/24 17:59 17:59 17:59 WBC RBC Hgb Hct MCV MCH MCHC RDW Plt Count MPV PT INR APTT Sodium Potassium Chloride Carbon Dioxide Anion Gap BUN Creatinine Estim Creat Clear Calc 116 Estimated GFR Cancelled > 60 Glucose Cancelled 287 H POC Capillary Glucose Calcium Cancelled Phosphorus Magnesium Total Bilirubin AST ALT Alkaline Phosphatase Total Protein Albumin Procalcitonin Urine Color Urine Appearance Urine pH Ur Specific [place] Urine Protein Urine Glucose (UA) Urine Ketones Ur Blood (Man) Urine Nitrate Urine Bilirubin Urine Urobilinogen Leukocyte Esterase Rfl Urine RBC Urine WBC Ur Squamous Epith Cells Urine Bacteria Urine Casts Influenza A (RT-PCR) Influenza B (RT-PCR) RSV (RT-PCR) SARS-CoV-2 RNA (RT-PCR) 11/10/24 11/10/24 11/10/24 17:59 18:59 20:01 WBC RBC Hgb Hct MCV MCH MCHC RDW Plt Count MPV PT INR APTT Sodium Potassium Chloride Carbon Dioxide Anion Gap BUN Creatinine Estim Creat Clear Calc Estimated GFR Glucose POC Capillary Glucose 304 H 297 H Calcium 9.0 Phosphorus 2.4 L Magnesium Total Bilirubin AST ALT Alkaline Phosphatase Total Protein Albumin Procalcitonin Urine Color Urine Appearance Urine pH Ur Specific [place] Urine Protein Urine Glucose (UA) Urine Ketones Ur Blood (Man) Urine Nitrate Urine Bilirubin Urine Urobilinogen Leukocyte Esterase Rfl Urine RBC Urine WBC Ur Squamous Epith Cells Urine Bacteria Urine Casts Influenza A (RT-PCR) Influenza B (RT-PCR) RSV (RT-PCR) SARS-CoV-2 RNA (RT-PCR) 11/10/24 11/10/24 11/10/24 20:57 21:54 22:21 WBC RBC Hgb Hct MCV MCH MCHC RDW Plt Count MPV PT INR APTT Sodium 148 H Potassium 3.7 Chloride 118 H Carbon Dioxide 19 L Anion Gap 11 BUN 13 Creatinine 0.68 L Estim Creat Clear Calc 119 Estimated GFR > 60 Glucose 266 H POC Capillary Glucose 280 H 283 H Calcium 9.0 Phosphorus Magnesium Total Bilirubin AST ALT Alkaline Phosphatase Total Protein Albumin Procalcitonin Urine Color Urine Appearance Urine pH Ur Specific [place] Urine Protein Urine Glucose (UA) Urine Ketones Ur Blood (Man) Urine Nitrate Urine Bilirubin Urine Urobilinogen Leukocyte Esterase Rfl Urine RBC Urine WBC Ur Squamous Epith Cells Urine Bacteria Urine Casts Influenza A (RT-PCR) Influenza B (RT-PCR) RSV (RT-PCR) SARS-CoV-2 RNA (RT-PCR) 11/10/24 11/10/24 11/11/24 22:56 23:57 01:01 WBC RBC Hgb Hct MCV MCH MCHC RDW Plt Count MPV PT INR APTT Sodium Potassium Chloride Carbon Dioxide Anion Gap BUN Creatinine Estim Creat Clear Calc Estimated GFR Glucose POC Capillary Glucose 227 H 184 H 208 H Calcium Phosphorus Magnesium Total Bilirubin AST ALT Alkaline Phosphatase Total Protein Albumin Procalcitonin Urine Color Urine Appearance Urine pH Ur Specific [place] Urine Protein Urine Glucose (UA) Urine Ketones Ur Blood (Man) Urine Nitrate Urine Bilirubin Urine Urobilinogen Leukocyte Esterase Rfl Urine RBC Urine WBC Ur Squamous Epith Cells Urine Bacteria Urine Casts Influenza A (RT-PCR) Influenza B (RT-PCR) RSV (RT-PCR) SARS-CoV-2 RNA (RT-PCR) 11/11/24 11/11/24 11/11/24 01:54 01:59 02:01 WBC RBC Hgb Hct MCV MCH MCHC RDW Plt Count MPV PT INR APTT Sodium 146 H Potassium 3.7 Chloride 117 H Carbon Dioxide 16 L Anion Gap 13 H BUN 13 Creatinine 0.62 L Estim Creat Clear Calc 130 Estimated GFR > 60 Glucose 264 H POC Capillary Glucose 264 H Calcium 8.8 Phosphorus Magnesium Total Bilirubin AST ALT Alkaline Phosphatase Total Protein Albumin Procalcitonin 0.2 Urine Color Urine Appearance Urine pH Ur Specific [place] Urine Protein Urine Glucose (UA) Urine Ketones Ur Blood (Man) Urine Nitrate Urine Bilirubin Urine Urobilinogen Leukocyte Esterase Rfl Urine RBC Urine WBC Ur Squamous Epith Cells Urine Bacteria Urine Casts Influenza A (RT-PCR) Influenza B (RT-PCR) RSV (RT-PCR) SARS-CoV-2 RNA (RT-PCR) 11/11/24 11/11/24 11/11/24 02:52 03:48 05:54 WBC 7.8 RBC 4.59 L Hgb 14.0 Hct 41.3 L MCV 90.0 MCH 30.5 MCHC 33.9 RDW 13.4 Plt Count 176 MPV 9.9 PT INR APTT Sodium 145 Potassium 3.6 Chloride 116 H Carbon Dioxide 21 L Anion Gap 8 BUN 13 Creatinine 0.59 L Estim Creat Clear Calc 136 Estimated GFR > 60 Glucose 282 H POC Capillary Glucose 282 H 280 H Calcium 8.8 Phosphorus 2.2 L Magnesium 1.9 Total Bilirubin 1.1 AST 13 L ALT 14 Alkaline Phosphatase 102 Total Protein 7.0 Albumin 3.5 Procalcitonin Urine Color Urine Appearance Urine pH Ur Specific [place] Urine Protein Urine Glucose (UA) Urine Ketones Ur Blood (Man) Urine Nitrate Urine Bilirubin Urine Urobilinogen Leukocyte Esterase Rfl Urine RBC Urine WBC Ur Squamous Epith Cells Urine Bacteria Urine Casts Influenza A (RT-PCR) Influenza B (RT-PCR) RSV (RT-PCR) SARS-CoV-2 RNA (RT-PCR) 11/11/24 11/11/24 11/11/24 05:59 07:10 08:05 WBC RBC Hgb Hct MCV MCH MCHC RDW Plt Count MPV PT INR APTT Sodium Potassium Chloride Carbon Dioxide Anion Gap BUN Creatinine Estim Creat Clear Calc Estimated GFR Glucose POC Capillary Glucose 300 H 213 H 212 H Calcium Phosphorus Magnesium Total Bilirubin AST ALT Alkaline Phosphatase Total Protein Albumin Procalcitonin Urine Color Urine Appearance Urine pH Ur Specific [place] Urine Protein Urine Glucose (UA) Urine Ketones Ur Blood (Man) Urine Nitrate Urine Bilirubin Urine Urobilinogen Leukocyte Esterase Rfl Urine RBC Urine WBC Ur Squamous Epith Cells Urine Bacteria Urine Casts Influenza A (RT-PCR) Influenza B (RT-PCR) RSV (RT-PCR) SARS-CoV-2 RNA (RT-PCR) 11/11/24 11/11/24 11/11/24 08:33 09:05 09:54 WBC RBC Hgb Hct MCV MCH MCHC RDW Plt Count MPV PT 16.3 H INR 1.3 APTT 28.1 Sodium 146 H Potassium 3.7 Chloride 114 H Carbon Dioxide 22 Anion Gap 10 BUN 12 Creatinine 0.57 L Estim Creat Clear Calc 140 Estimated GFR > 60 Glucose 184 H POC Capillary Glucose 170 H Calcium 8.9 Phosphorus Magnesium Total Bilirubin AST ALT Alkaline Phosphatase Total Protein Albumin Procalcitonin Urine Color Yellow Urine Appearance Cloudy H Urine pH 6.0 Ur Specific [place] 1.024 Urine Protein 1+ H Urine Glucose (UA) 3+ H Urine Ketones Negative Ur Blood (Man) Negative Urine Nitrate Positive H Urine Bilirubin Negative Urine Urobilinogen 1.0 Leukocyte Esterase Rfl Negative Urine RBC 0-2 Urine WBC 6-10 H Ur Squamous Epith Cells None seen Urine Bacteria 4+ H Urine Casts 0-2 Influenza A (RT-PCR) Influenza B (RT-PCR) RSV (RT-PCR) SARS-CoV-2 RNA (RT-PCR) 11/11/24 11/11/24 11/11/24 10:02 10:27 11:04 WBC RBC Hgb Hct MCV MCH MCHC RDW Plt Count MPV PT INR APTT Sodium Potassium Chloride Carbon Dioxide Anion Gap BUN Creatinine Estim Creat Clear Calc Estimated GFR Glucose POC Capillary Glucose 207 H 211 H Calcium Phosphorus Magnesium Total Bilirubin AST ALT Alkaline Phosphatase Total Protein Albumin Procalcitonin Urine Color Urine Appearance Urine pH Ur Specific [place] Urine Protein Urine Glucose (UA) Urine Ketones Ur Blood (Man) Urine Nitrate Urine Bilirubin Urine Urobilinogen Leukocyte Esterase Rfl Urine RBC Urine WBC Ur Squamous Epith Cells Urine Bacteria Urine Casts Influenza A (RT-PCR) Negative Influenza B (RT-PCR) Negative RSV (RT-PCR) Negative SARS-CoV-2 RNA (RT-PCR) Negative
[2024-11-11] MEDS: INSULIN GLARGINE (*BKC) 100 UNITS/ML 20 UNITS SUB-Q (11:56)
[2024-11-11 12:05] LABS: Glucose Point of Care 227 mg/dl (65-105)
[2024-11-11 14:40] LABS: Anion Gap 15 mmol/L (4-12); Blood Urea Nitrogen 13 mg/dL (9-20); Calcium 8.4 mg/dL (8.4-10.2); Carbon Dioxide 16 mmol/L (22-30); Chloride 114 mmol/L (98-107); Estimated CRCL calculation 140 ml/min; Estimated Glomerular Filt Rate > 60; Glucose 252 mg/dL (65-110); Sodium 145 mmol/L (137-145)
--- NOTE | 2024-11-11 15:02 | PM.IMPN ---
Progress Note: A&P Assessment and Plan (1) Metabolic encephalopathy: Code(s): G93.41 - Metabolic encephalopathy Status: Acute (2) Electrolyte abnormality: Code(s): E87.8 - Other disorders of electrolyte and fluid balance, not elsewhere classified Status: Acute (3) DANIEL (acute kidney injury): Code(s): N17.9 - Acute kidney failure, unspecified Status: Acute (4) DKA, type 2: Code(s): E11.10 - Type 2 diabetes mellitus with ketoacidosis without coma Status: Acute Plan Patient is quite somnolent does not provide any ROS or history, patient is seen by insurance legal assistant and DKA protocol is in place blood sugars are trending down will continue to monitor with insurance legal assistant. Suspect patient is a type 2 diabetes non compliant his A1c is 12.4. patient still not be providing any review of symptoms or history, today patient's son came to visit the patient provide a little more history patient does have a history of alcohol abuse, patient seen by insurance legal assistant remains on DKA protocol however his blood sugars are improving anion gap is closed. Patient also seen by neurologist suspect patient has a metabolic encephalopathy secondary to DKA, today patient is more awake and able to communicate some, stats he did not know he has diabetes, and was not on any medication, once clinically, will consult ice sculptor and further recommendation to follow, will reassess the patient and further recommendation to follow. Subjective Date/time seen: 11/11/24 15:02 Interval history: 49 year old male arrives to the Emergency Department via EMS. EMS was called by family for decreasing level of consciousness over past 4 days. Family called tonight because his breathing was fast. MD complaint: altered mental status Patient is quite somnolent does not provide any ROS or history, patient is seen by insurance legal assistant and DKA protocol is in place blood sugars are trending down will continue to monitor with insurance legal assistant. Suspect patient is a type 2 diabetes non compliant his A1c is 12.4. patient still not be providing any review of symptoms or history, today patient's son came to visit the patient provide a little more history patient does have a history of alcohol abuse, patient seen by insurance legal assistant remains on DKA protocol however his blood sugars are improving anion gap is closed. Patient also seen by neurologist suspect patient has a metabolic encephalopathy secondary to DKA, today patient is more awake and able to communicate some, stats he did not know he has diabetes, and was not on any medication, once clinically, will consult ice sculptor and further recommendation to follow, will reassess the patient and further recommendation to follow. Exam Narrative: Patient is comfortable, NAD HEENT: eyes are clear and none icteric LUNGS:CTA HEART: RR S1S2 ABD: BS+, Soft and nontender Lower extremities: no edema SKIN: nonjaundiced Neuro: grossly intact. Objective Data Vital Signs Vital Signs: Vital Signs - 24 hr 11/10/24 16:00 11/10/24 16:00 11/10/24 16:00 Temperature 37.4 C Pulse Rate 109 H 109 H 113 H Respiratory Rate 31 H 31 H Blood Pressure 138/71 Pulse Oximetry 99 99 Oxygen Delivery Room Air 11/10/24 18:00 11/10/24 18:00 11/10/24 20:00 Temperature Pulse Rate 113 H 101 H 115 H Respiratory Rate 33 H 32 H Blood Pressure 158/102 H Pulse Oximetry 98 98 Oxygen Delivery Room Air 11/10/24 20:00 11/10/24 20:00 11/10/24 20:05 Temperature 37.5 C Pulse Rate 96 114 H 114 H Respiratory Rate 16 Blood Pressure 155/100 H Pulse Oximetry 97 Oxygen Delivery 11/10/24 22:00 11/10/24 22:00 11/11/24 00:00 Temperature Pulse Rate 106 H 106 H 109 H Respiratory Rate 35 H 21 H Blood Pressure 133/81 Pulse Oximetry 98 96 Oxygen Delivery Room Air 11/11/24 00:00 11/11/24 00:00 11/11/24 01:05 Temperature 39.4 C H Pulse Rate 109 H 110 H Respiratory Rate 21 H Blood Pressure 132/71 Pulse Oximetry 96 Oxygen Delivery 11/11/24 01:27 11/11/24 02:00 11/11/24 02:00 Temperature 39.4 C H 39.1 C H Pulse Rate 112 H 112 H Respiratory Rate 29 H Blood Pressure 148/89 H Pulse Oximetry 96 Oxygen Delivery 11/11/24 02:27 11/11/24 04:00 11/11/24 04:00 Temperature 38.0 C H Pulse Rate 105 H 104 H Respiratory Rate 26 H Blood Pressure Pulse Oximetry 96 Oxygen Delivery Room Air 11/11/24 04:00 11/11/24 06:00 11/11/24 06:00 Temperature 37.3 C 37.8 C H Pulse Rate 105 H 108 H 108 H Respiratory Rate 26 H 24 H Blood Pressure 141/90 H 143/89 H Pulse Oximetry 96 98 Oxygen Delivery 11/11/24 08:00 11/11/24 08:00 11/11/24 08:00 Temperature 38.2 C H Pulse Rate 112 H 112 H 111 H Respiratory Rate 21 H 21 H Blood Pressure 152/95 H Pulse Oximetry 98 98 Oxygen Delivery Room Air 11/11/24 08:09 11/11/24 09:10 11/11/24 10:00 Temperature 38.2 C H 37.9 C H 37.8 C H Pulse Rate 110 H Respiratory Rate 15 Blood Pressure 146/86 H Pulse Oximetry 96 Oxygen Delivery 11/11/24 11:21 11/11/24 12:00 11/11/24 14:00 Temperature 37.3 C Pulse Rate 110 H 105 H 106 H Respiratory Rate 24 H 25 H Blood Pressure 152/98 H 150/97 H Pulse Oximetry 96 94 Oxygen Delivery Intake/Output Intake/Output: Intake & Output 11/08/24 11/09/24 11/10/24 11/11/24 23:59 23:59 23:59 23:59 Intake Total 1421.3333 4288.9667 1905.9 Output Total 1300 1450 1000 Balance 121.3333 2838.9667 905.9 Meds/Results Medications: Active Medications Generic Name Dose Route Start Last Admin Trade Name Freq PRN Reason Stop Dose Admin Acetaminophen 650 mg 11/11/24 01:12 11/11/24 08:09 Acetaminophen 650 Mg Suppository RECTAL 650 mg Q4H PRN Administration Mild Pain (1-3) or Fever Dextrose 12.5 gm 11/09/24 08:22 Dextrose 50% 25 Gm/50 Ml Syringe IV PUSH PRN PRN Hypoglycemia Protocol Enoxaparin Sodium 40 mg 11/10/24 09:00 11/11/24 08:07 Enoxaparin 40 Mg/0.4 Ml Syringe SUB-Q 40 mg DAILY KIKE Administration Glucagon 1 mg 11/09/24 08:22 Glucagon For Inj 1 Mg Vial IM PRN PRN Hypoglycemia Protocol Glucose 15 gm 11/09/24 08:22 Glucose Oral Gel 15 Gm Of Glucse In 37.5 Gm Tube PO PRN PRN Hypoglycemia Protocol Dextrose 1,000 mls @ 100 mls/hr 11/09/24 08:22 Dextrose 5% 1,000 Ml IVPB PRN PRN Hypoglycemia Protocol Potassium Chloride/Sodium Chloride 1,000 mls @ 50 mls/hr 11/11/24 09:00 11/11/24 08:34 Kcl 20 Meq/0.45% Ns IV CONT 50 mls/hr .Q20H KIKE Administration Insulin Aspart 4 - 8 units 11/11/24 13:00 11/11/24 11:56 Insulin Aspart (*Bkc) 100 Units/Ml SUB-Q Not Given Q4HR KIKE Protocol Insulin Glargine 20 units 11/11/24 11:30 11/11/24 11:56 Insulin Glargine (*Bkc) 100 Units/Ml SUB-Q 20 units QAM KIKE Administration Labetalol HCl 20 mg 11/10/24 10:59 11/10/24 20:05 Labetalol Hcl Inj 100 Mg/20 Ml Vial IV PUSH 20 mg Q4H PRN Administration SBP > 160 and HR> 60 -1st choice Pantoprazole Sodium 40 mg 11/10/24 09:00 11/11/24 08:07 Pantoprazole Sodium Iv 40 Mg Vial IV PUSH 40 mg QAM KIKE Administration Radiology Results: ITS Impressions Head CT 11/09/24 09:07 IMPRESSION: No acute intracranial findings. Renal Ultrasound 11/09/24 11:13 IMPRESSION: 1. Normal kidneys. No hydronephrosis. Brain MRI 11/11/24 12:53 IMPRESSION: No acute abnormality. Probable tiny chronic lacunar infarct as above. Minimal left ethmoid sinus disease. Chest X-Ray 11/11/24 13:06 IMPRESSION: 1. No acute cardiopulmonary disease. Abdomen X-Ray 11/11/24 14:41 IMPRESSION: Nasogastric tube in good position and ready for immediate use. Labs Labs: Laboratory Results - last 24 hr 11/10/24 11/10/24 11/10/24 15:01 15:59 17:52 WBC RBC Hgb Hct MCV MCH MCHC RDW Plt Count MPV PT INR APTT Sodium Potassium Chloride Carbon Dioxide Anion Gap BUN Creatinine Estim Creat Clear Calc Estimated GFR Glucose POC Capillary Glucose 195 H 227 H 279 H Calcium Phosphorus Magnesium Total Bilirubin AST ALT Alkaline Phosphatase Total Protein Albumin Procalcitonin Urine Color Urine Appearance Urine pH Ur Specific [place] Urine Protein Urine Glucose (UA) Urine Ketones Ur Blood (Man) Urine Nitrate Urine Bilirubin Urine Urobilinogen Leukocyte Esterase Rfl Urine RBC Urine WBC Ur Squamous Epith Cells Urine Bacteria Urine Casts Influenza A (RT-PCR) Influenza B (RT-PCR) RSV (RT-PCR) SARS-CoV-2 RNA (RT-PCR) 11/10/24 11/10/24 11/10/24 17:59 17:59 17:59 WBC RBC Hgb Hct MCV MCH MCHC RDW Plt Count MPV PT INR APTT Sodium Cancelled 149 H Potassium Cancelled 3.9 Chloride Cancelled Carbon Dioxide Anion Gap BUN Creatinine Estim Creat Clear Calc Estimated GFR Glucose POC Capillary Glucose Calcium Phosphorus Magnesium Total Bilirubin AST ALT Alkaline Phosphatase Total Protein Albumin Procalcitonin Urine Color Urine Appearance Urine pH Ur Specific [place] Urine Protein Urine Glucose (UA) Urine Ketones Ur Blood (Man) Urine Nitrate Urine Bilirubin Urine Urobilinogen Leukocyte Esterase Rfl Urine RBC Urine WBC Ur Squamous Epith Cells Urine Bacteria Urine Casts Influenza A (RT-PCR) Influenza B (RT-PCR) RSV (RT-PCR) SARS-CoV-2 RNA (RT-PCR) 11/10/24 11/10/24 11/10/24 17:59 17:59 17:59 WBC RBC Hgb Hct MCV MCH MCHC RDW Plt Count MPV PT INR APTT Sodium Potassium Chloride 119 H Carbon Dioxide Cancelled 16 L Anion Gap Cancelled 14 H BUN Cancelled Creatinine Estim Creat Clear Calc Estimated GFR Glucose POC Capillary Glucose Calcium Phosphorus Magnesium Total Bilirubin AST ALT Alkaline Phosphatase Total Protein Albumin Procalcitonin Urine Color Urine Appearance Urine pH Ur Specific [place] Urine Protein Urine Glucose (UA) Urine Ketones Ur Blood (Man) Urine Nitrate Urine Bilirubin Urine Urobilinogen Leukocyte Esterase Rfl Urine RBC Urine WBC Ur Squamous Epith Cells Urine Bacteria Urine Casts Influenza A (RT-PCR) Influenza B (RT-PCR) RSV (RT-PCR) SARS-CoV-2 RNA (RT-PCR) 11/10/24 11/10/24 11/10/24 17:59 17:59 17:59 WBC RBC Hgb Hct MCV MCH MCHC RDW Plt Count MPV PT INR APTT Sodium Potassium Chloride Carbon Dioxide Anion Gap BUN 15 Creatinine Cancelled 0.70 Estim Creat Clear Calc Cancelled 116 Estimated GFR Cancelled Glucose POC Capillary Glucose Calcium Phosphorus Magnesium Total Bilirubin AST ALT Alkaline Phosphatase Total Protein Albumin Procalcitonin Urine Color Urine Appearance Urine pH Ur Specific [place] Urine Protein Urine Glucose (UA) Urine Ketones Ur Blood (Man) Urine Nitrate Urine Bilirubin Urine Urobilinogen Leukocyte Esterase Rfl Urine RBC Urine WBC Ur Squamous Epith Cells Urine Bacteria Urine Casts Influenza A (RT-PCR) Influenza B (RT-PCR) RSV (RT-PCR) SARS-CoV-2 RNA (RT-PCR) 11/10/24 11/10/24 11/10/24 17:59 17:59 17:59 WBC RBC Hgb Hct MCV MCH MCHC RDW Plt Count MPV PT INR APTT Sodium Potassium Chloride Carbon Dioxide Anion Gap BUN Creatinine Estim Creat Clear Calc Estimated GFR > 60 Glucose Cancelled 287 H POC Capillary Glucose Calcium Cancelled 9.0 Phosphorus 2.4 L Magnesium Total Bilirubin AST ALT Alkaline Phosphatase Total Protein Albumin Procalcitonin Urine Color Urine Appearance Urine pH Ur Specific [place] Urine Protein Urine Glucose (UA) Urine Ketones Ur Blood (Man) Urine Nitrate Urine Bilirubin Urine Urobilinogen Leukocyte Esterase Rfl Urine RBC Urine WBC Ur Squamous Epith Cells Urine Bacteria Urine Casts Influenza A (RT-PCR) Influenza B (RT-PCR) RSV (RT-PCR) SARS-CoV-2 RNA (RT-PCR) 11/10/24 11/10/24 11/10/24 18:59 20:01 20:57 WBC RBC Hgb Hct MCV MCH MCHC RDW Plt Count MPV PT INR APTT Sodium Potassium Chloride Carbon Dioxide Anion Gap BUN Creatinine Estim Creat Clear Calc Estimated GFR Glucose POC Capillary Glucose 304 H 297 H 280 H Calcium Phosphorus Magnesium Total Bilirubin AST ALT Alkaline Phosphatase Total Protein Albumin Procalcitonin Urine Color Urine Appearance Urine pH Ur Specific [place] Urine Protein Urine Glucose (UA) Urine Ketones Ur Blood (Man) Urine Nitrate Urine Bilirubin Urine Urobilinogen Leukocyte Esterase Rfl Urine RBC Urine WBC Ur Squamous Epith Cells Urine Bacteria Urine Casts Influenza A (RT-PCR) Influenza B (RT-PCR) RSV (RT-PCR) SARS-CoV-2 RNA (RT-PCR) 11/10/24 11/10/24 11/10/24 21:54 22:21 22:56 WBC RBC Hgb Hct MCV MCH MCHC RDW Plt Count MPV PT INR APTT Sodium 148 H Potassium 3.7 Chloride 118 H Carbon Dioxide 19 L Anion Gap 11 BUN 13 Creatinine 0.68 L Estim Creat Clear Calc 119 Estimated GFR > 60 Glucose 266 H POC Capillary Glucose 283 H 227 H Calcium 9.0 Phosphorus Magnesium Total Bilirubin AST ALT Alkaline Phosphatase Total Protein Albumin Procalcitonin Urine Color Urine Appearance Urine pH Ur Specific [place] Urine Protein Urine Glucose (UA) Urine Ketones Ur Blood (Man) Urine Nitrate Urine Bilirubin Urine Urobilinogen Leukocyte Esterase Rfl Urine RBC Urine WBC Ur Squamous Epith Cells Urine Bacteria Urine Casts Influenza A (RT-PCR) Influenza B (RT-PCR) RSV (RT-PCR) SARS-CoV-2 RNA (RT-PCR) 11/10/24 11/11/24 11/11/24 23:57 01:01 01:54 WBC RBC Hgb Hct MCV MCH MCHC RDW Plt Count MPV PT INR APTT Sodium Potassium Chloride Carbon Dioxide Anion Gap BUN Creatinine Estim Creat Clear Calc Estimated GFR Glucose POC Capillary Glucose 184 H 208 H 264 H Calcium Phosphorus Magnesium Total Bilirubin AST ALT Alkaline Phosphatase Total Protein Albumin Procalcitonin Urine Color Urine Appearance Urine pH Ur Specific [place] Urine Protein Urine Glucose (UA) Urine Ketones Ur Blood (Man) Urine Nitrate Urine Bilirubin Urine Urobilinogen Leukocyte Esterase Rfl Urine RBC Urine WBC Ur Squamous Epith Cells Urine Bacteria Urine Casts Influenza A (RT-PCR) Influenza B (RT-PCR) RSV (RT-PCR) SARS-CoV-2 RNA (RT-PCR) 11/11/24 11/11/24 11/11/24 01:59 02:01 02:52 WBC RBC Hgb Hct MCV MCH MCHC RDW Plt Count MPV PT INR APTT Sodium 146 H Potassium 3.7 Chloride 117 H Carbon Dioxide 16 L Anion Gap 13 H BUN 13 Creatinine 0.62 L Estim Creat Clear Calc 130 Estimated GFR > 60 Glucose 264 H POC Capillary Glucose 282 H Calcium 8.8 Phosphorus Magnesium Total Bilirubin AST ALT Alkaline Phosphatase Total Protein Albumin Procalcitonin 0.2 Urine Color Urine Appearance Urine pH Ur Specific [place] Urine Protein Urine Glucose (UA) Urine Ketones Ur Blood (Man) Urine Nitrate Urine Bilirubin Urine Urobilinogen Leukocyte Esterase Rfl Urine RBC Urine WBC Ur Squamous Epith Cells Urine Bacteria Urine Casts Influenza A (RT-PCR) Influenza B (RT-PCR) RSV (RT-PCR) SARS-CoV-2 RNA (RT-PCR) 11/11/24 11/11/24 11/11/24 03:48 05:54 05:59 WBC 7.8 RBC 4.59 L Hgb 14.0 Hct 41.3 L MCV 90.0 MCH 30.5 MCHC 33.9 RDW 13.4 Plt Count 176 MPV 9.9 PT INR APTT Sodium 145 Potassium 3.6 Chloride 116 H Carbon Dioxide 21 L Anion Gap 8 BUN 13 Creatinine 0.59 L Estim Creat Clear Calc 136 Estimated GFR > 60 Glucose 282 H POC Capillary Glucose 280 H 300 H Calcium 8.8 Phosphorus 2.2 L Magnesium 1.9 Total Bilirubin 1.1 AST 13 L ALT 14 Alkaline Phosphatase 102 Total Protein 7.0 Albumin 3.5 Procalcitonin Urine Color Urine Appearance Urine pH Ur Specific [place] Urine Protein Urine Glucose (UA) Urine Ketones Ur Blood (Man) Urine Nitrate Urine Bilirubin Urine Urobilinogen Leukocyte Esterase Rfl Urine RBC Urine WBC Ur Squamous Epith Cells Urine Bacteria Urine Casts Influenza A (RT-PCR) Influenza B (RT-PCR) RSV (RT-PCR) SARS-CoV-2 RNA (RT-PCR) 11/11/24 11/11/24 11/11/24 07:10 08:05 08:33 WBC RBC Hgb Hct MCV MCH MCHC RDW Plt Count MPV PT INR APTT Sodium Potassium Chloride Carbon Dioxide Anion Gap BUN Creatinine Estim Creat Clear Calc Estimated GFR Glucose POC Capillary Glucose 213 H 212 H Calcium Phosphorus Magnesium Total Bilirubin AST ALT Alkaline Phosphatase Total Protein Albumin Procalcitonin Urine Color Yellow Urine Appearance Cloudy H Urine pH 6.0 Ur Specific [place] 1.024 Urine Protein 1+ H Urine Glucose (UA) 3+ H Urine Ketones Negative Ur Blood (Man) Negative Urine Nitrate Positive H Urine Bilirubin Negative Urine Urobilinogen 1.0 Leukocyte Esterase Rfl Negative Urine RBC 0-2 Urine WBC 6-10 H Ur Squamous Epith Cells None seen Urine Bacteria 4+ H Urine Casts 0-2 Influenza A (RT-PCR) Influenza B (RT-PCR) RSV (RT-PCR) SARS-CoV-2 RNA (RT-PCR) 11/11/24 11/11/24 11/11/24 09:05 09:54 10:02 WBC RBC Hgb Hct MCV MCH MCHC RDW Plt Count MPV PT 16.3 H INR 1.3 APTT 28.1 Sodium 146 H Potassium 3.7 Chloride 114 H Carbon Dioxide 22 Anion Gap 10 BUN 12 Creatinine 0.57 L Estim Creat Clear Calc 140 Estimated GFR > 60 Glucose 184 H POC Capillary Glucose 170 H 207 H Calcium 8.9 Phosphorus Magnesium Total Bilirubin AST ALT Alkaline Phosphatase Total Protein Albumin Procalcitonin Urine Color Urine Appearance Urine pH Ur Specific [place] Urine Protein Urine Glucose (UA) Urine Ketones Ur Blood (Man) Urine Nitrate Urine Bilirubin Urine Urobilinogen Leukocyte Esterase Rfl Urine RBC Urine WBC Ur Squamous Epith Cells Urine Bacteria Urine Casts Influenza A (RT-PCR) Influenza B (RT-PCR) RSV (RT-PCR) SARS-CoV-2 RNA (RT-PCR) 11/11/24 11/11/24 11/11/24 10:27 11:04 11:53 WBC RBC Hgb Hct MCV MCH MCHC RDW Plt Count MPV PT INR APTT Sodium Potassium Chloride Carbon Dioxide Anion Gap BUN Creatinine Estim Creat Clear Calc Estimated GFR Glucose POC Capillary Glucose 211 H 227 H Calcium Phosphorus Magnesium Total Bilirubin AST ALT Alkaline Phosphatase Total Protein Albumin Procalcitonin Urine Color Urine Appearance Urine pH Ur Specific [place] Urine Protein Urine Glucose (UA) Urine Ketones Ur Blood (Man) Urine Nitrate Urine Bilirubin Urine Urobilinogen Leukocyte Esterase Rfl Urine RBC Urine WBC Ur Squamous Epith Cells Urine Bacteria Urine Casts Influenza A (RT-PCR) Negative Influenza B (RT-PCR) Negative RSV (RT-PCR) Negative SARS-CoV-2 RNA (RT-PCR) Negative 11/11/24 14:05 WBC RBC Hgb Hct MCV MCH MCHC RDW Plt Count MPV PT INR APTT Sodium 145 Potassium 4.0 Chloride 114 H Carbon Dioxide 16 L Anion Gap 15 H BUN 13 Creatinine 0.57 L Estim Creat Clear Calc 140 Estimated GFR > 60 Glucose 252 H POC Capillary Glucose Calcium 8.4 Phosphorus Magnesium Total Bilirubin AST ALT Alkaline Phosphatase Total Protein Albumin Procalcitonin Urine Color Urine Appearance Urine pH Ur Specific [place] Urine Protein Urine Glucose (UA) Urine Ketones Ur Blood (Man) Urine Nitrate Urine Bilirubin Urine Urobilinogen Leukocyte Esterase Rfl Urine RBC Urine WBC Ur Squamous Epith Cells Urine Bacteria Urine Casts Influenza A (RT-PCR) Influenza B (RT-PCR) RSV (RT-PCR) SARS-CoV-2 RNA (RT-PCR) Quality VTE Prophylaxis VTE prophylaxis: mechanical ordered
[2024-11-11] MEDS: INSULIN ASPART (*BKC) 100 UNITS/ML SUB-Q ×2 (16:37→20:33)
[2024-11-11 16:42] LABS: Glucose Point of Care 261 mg/dl (65-105)
[2024-11-11] MEDS: LABETALOL HCL INJ 100 MG/20 ML VIAL 20 MG IV PUSH (20:34)
[2024-11-11 20:43] LABS: Glucose Point of Care 214 mg/dl (65-105)
[2024-11-12] VITALS (7 sets, daily range): BP systolic 114–144; BP diastolic 71–89; PULSE 87–98; RESP 15–22; TEMP 36.1–37.2; O2SAT 95–100; BMI 24.2
[2024-11-12] MEDS: INSULIN ASPART (*BKC) 100 UNITS/ML SUB-Q ×6 (03:07→21:07)
[2024-11-12 03:56] LABS: Hematocrit 40.8 % (42.0-52.0); Hemoglobin 13.9 g/dL (14.0-18.0); Mean Corpuscular HGB Conc 34.1 g/dl (32-36); Mean Corpuscular Hemoglobin 30.5 pg (26-34); Mean Corpuscular Volume 89.5 fl (80-100); Mean Platelet Volume 9.9 fl (7.4-10.4); Platelet Count Result 179 k/mm3 (150-375); Red Blood Count 4.56 M/mm3 (4.6-6.20); White Blood Count 7.4 K/mm3 (4.5-10.0)
[2024-11-12 04:09] LABS: Alanine Aminotransferase 12 U/L (6-50); Albumin Level 3.6 g/dL (3.5-5.1); Alkaline Phosphatase 103 U/L (38-126); Anion Gap 14 mmol/L (4-12); Aspartate Amino Transferase 13 U/L (17-59); Bilirubin,Total 1.2 mg/dL (0.2-1.3); Blood Urea Nitrogen 15 mg/dL (9-20); Calcium 8.8 mg/dL (8.4-10.2); Carbon Dioxide 19 mmol/L (22-30); Chloride 111 mmol/L (98-107); Estimated CRCL calculation 136 ml/min; Estimated Glomerular Filt Rate > 60; Glucose 251 mg/dL (65-110); Magnesium 2.2 mg/dL (1.6-2.3); Phosphorus 2.6 mg/dL (2.5-4.5); Potassium 3.9 mmol/L (3.4-5.0); Sodium 144 mmol/L (137-145)
[2024-11-12 04:48] LABS: Glucose Point of Care 257 mg/dl (65-105)
[2024-11-12] MEDS: KCL 20 MEQ/0.45% NS 1,000 ML 50 ML IV CONT ×2 (06:18→22:04)
[2024-11-12 06:43] LABS: Glucose Point of Care 247 mg/dl (65-105)
[2024-11-12 08:44] LABS: Glucose Point of Care 232 mg/dl (65-105)
[2024-11-12] MEDS: INSULIN GLARGINE (*BKC) 100 UNITS/ML 28 UNITS SUB-Q (08:44)
[2024-11-12] MEDS: PANTOPRAZOLE SODIUM IV 40 MG VIAL IV PUSH (08:44)
--- NOTE | 2024-11-12 09:25 | P.PNINT_ITS ---
Progress Note: A&P Assessment and Plan (1) Encephalopathy: Code(s): G93.40 - Encephalopathy, unspecified Status: Acute Assessment and Plan: Patient presented with altered mental status. Head CT was negative. Patient likely has metabolic encephalopathy which can be explained by significant metabolic and electrolyte derangements that he presented His Ammonia normal, thyroid function test were reviewed Infectious sources were entertained but no objective evidence of infection at that time. Patient was afebrile. WBC has normalized. Procalcitonin level is low. Lactic acid is normal. Neuro exam is nonfocal. He has significant metabolic derangements to explain encephalopathy Patient was also evaluated by Neurology Now it has been more than 48 hours although patient has clinically improved but he does not appear close to his baseline. He does answer some question, exam remains nonfocal and he is partially oriented Overnight patient is now having some fever 11/12: Patient is awake, alert, oriented x2, able to carry out a full conversation, denies any headaches. Patient does follow commands. I will hold the LP for now, -will continue to obtain MRI to see evaluate for strokes. Hold antibiotics for now -encephalopathy much improved (2) DKA (diabetic ketoacidosis): Code(s): E11.10 - Type 2 diabetes mellitus with ketoacidosis without coma Status: Inactive Assessment and Plan: Pt was given IVF bolus and and is currently on IV fluids and insulin infusion Serial labs are being done Electrolytes are being replaced Patient on Lantus and sliding scale insulin and Accu-Cheks -will increase Lantus today Patient was recommended a modified barium swallow which will be done today (3) Acute dehydration: Code(s): E86.0 - Dehydration Status: Inactive Assessment and Plan: Patient presented with significant dehydration with hypernatremia. His sodium and chloride has improved over last few days with IV fluids. I will now switch his fluids from dextrose to half-normal saline with potassium On discontinue IV fluids as patient is on tube feed Patient has very good urine output (4) DANIEL (acute kidney injury): Code(s): N17.9 - Acute kidney failure, unspecified Status: Acute Assessment and Plan: Likely secondary to dehydration from DKA Normal CK, Renal ultrasound was unremarkable Will discontinue IV fluids as patient on tube feeds Renal function has normalized Monitor urine output electrolytes and creatinine (5) Leukocytosis: Code(s): D72.829 - Elevated white blood cell count, unspecified Status: Acute Assessment and Plan: RESOLVED Likely secondary to DKA. UA unremarkable chest x-ray negative. Patient afebrile. Low procalcitonin level normal lactic acid level, cultures were done in the ER and pending. Hold any antibiotics at this time WBC now normalized Overnight patient had fevers although his WBC has now normalized. This could be from atelectasis but I will check checks x-ray, repeat flu swab Check UA and procalcitonin level (6) Electrolyte abnormality: Code(s): E87.8 - Other disorders of electrolyte and fluid balance, not elsewhere classified Status: Acute Assessment and Plan: Patient presented with significant hypernatremia which was initially mass by hyperglycemia. As hyperglycemia is improved his hyponatremia has became obvious. He also has hyperchloremia He was on D5 water with potassium to bring the sodium and chloride level down slowly. Sodium is now in high normal range. I will switch his fluids to half- normal saline the task -11/12: Electrolytes within normal limits Plan DVT prophylaxis: Lovenox subQ Nutrition: Tube tube feed Code Status: Full code We were able to get from the patient's son and brother. Limited history was obtained from them and they told t us that patient has some back issue and some shoulder surgery in the past but nothing conclusive or detailed. Total Critical Care Time - 33 minutes Discussed with patient updated with his condition and plan of care. I answered all his questions Patient be transferred to medical floor Due to a high probability of clinically significant, life threatening deterioration, the patient required my highest level of preparedness to intervene emergently and I personally spent this critical care time directly and personally managing the patient. This critical care time included obtaining a history; examining the patient; pulse oximetry; ordering and review of studies; arranging urgent treatment with development of a management plan; evaluation of patient's response to treatment; frequent reassessment; and discussions with other providers. It was exclusive of separately billable procedures and treating other patients and teaching time. Please see Assessment and Plan section and the rest of the note for further information on patient assessment and treatment Subjective Date/time seen: 11/12/24 09:25 Interval history: Manish Riley is a 49 year old male who was brought to ER at start on hospital by EMS the altered mental status. EMS was called by family as patient was drowsy for last 3-4 days. He also was breathing fast as per family members. With patient arrived the ER he was in COVID tachypneic and tachycardic. He was found to be dehydrated. Found to be in DKA, with encephalopathy, acute kidney injury 11/12/2024: Patient seen and examined the ICU, is awake, alert, oriented x2, is able to carry out a full conversation, denies any tobacco alcohol use. States he drinks smokes marijuana. He denies any history of diabetes, hypertension, cardiac disease, thyroid problems. Only takes gabapentin for his neuropathy, also has some chronic back pain. Able to follow commands, S moves all extremities spontaneously, states he is hungry and wants to eat. Urine output has been adequate, with T-max of 100.7?. Patient denies any chest pain, shortness a breath, nausea, vomiting, abdominal pain. Denies any headache or neck stiffness Review of Systems Review of Systems: All systems reviewed & are unremarkable except as noted in HPI and below Exam Narrative: General: Patient is awake, alert, in no acute distress. Lungs/Chest: Trachea central Clear BS B/L, No crackles or wheezing. Cardiac: RRR. Normal S1 S2. No murmurs Circulation: Pedal pulses are intact and symmetrical. Abdomen: Normal bowel sounds.. Soft. NT. ND. Extremities: No clubbing, cyanosis or edema. Warm : [place] in place Neurologic: Patient is awake, alert, oriented x2, follows simple commands, able to carry out conversation and answer questions appropriately. Strength 5/5 in all extremities, no neck stiffness Skin: No Rash Objective Data Vital Signs Vital Signs: Vital Signs - 24 hr 11/11/24 10:00 11/11/24 11:21 11/11/24 12:00 Temperature 100.0 F H 99.2 F Pulse Rate 110 H 110 H 105 H Respiratory Rate 15 24 H Blood Pressure 146/86 H 152/98 H Pulse Oximetry 96 96 Oxygen Delivery 11/11/24 12:00 11/11/24 12:00 11/11/24 14:00 Temperature Pulse Rate 105 H 108 H 106 H Respiratory Rate 24 H 25 H Blood Pressure 150/97 H Pulse Oximetry 96 94 Oxygen Delivery Room Air 11/11/24 14:00 11/11/24 16:00 11/11/24 16:00 Temperature 97.9 F Pulse Rate 105 H 106 H 106 H Respiratory Rate 26 H 26 H Blood Pressure 154/92 H Pulse Oximetry 99 99 Oxygen Delivery Room Air 11/11/24 16:00 11/11/24 18:00 11/11/24 18:00 Temperature Pulse Rate 106 H 106 H 106 H Respiratory Rate 26 H Blood Pressure 160/94 H Pulse Oximetry 97 Oxygen Delivery 11/11/24 20:00 11/11/24 20:00 11/11/24 20:00 Temperature 98.9 F Pulse Rate 109 H 111 H Respiratory Rate 25 H Blood Pressure 171/105 H Pulse Oximetry 98 98 Oxygen Delivery Room Air 11/11/24 20:34 11/11/24 22:00 11/11/24 22:00 Temperature Pulse Rate 110 H 96 96 Respiratory Rate 24 H Blood Pressure 140/84 Pulse Oximetry 98 Oxygen Delivery 11/12/24 00:00 11/12/24 00:00 11/12/24 00:00 Temperature 98.2 F Pulse Rate 97 97 Respiratory Rate 22 H Blood Pressure 144/89 H Pulse Oximetry 97 97 Oxygen Delivery Room Air 11/12/24 02:00 11/12/24 02:00 11/12/24 04:00 Temperature Pulse Rate 96 96 Respiratory Rate 22 H Blood Pressure 135/82 Pulse Oximetry 95 95 Oxygen Delivery Room Air 11/12/24 04:00 11/12/24 04:00 11/12/24 06:00 Temperature 98.4 F Pulse Rate 98 98 96 Respiratory Rate 19 17 Blood Pressure 128/86 121/88 Pulse Oximetry 95 96 Oxygen Delivery 11/12/24 06:00 11/12/24 08:00 11/12/24 08:00 Temperature Pulse Rate 96 97 Respiratory Rate 17 Blood Pressure Pulse Oximetry 96 Oxygen Delivery Room Air 11/12/24 08:00 Temperature 98.9 F Pulse Rate 97 Respiratory Rate 15 Blood Pressure 130/89 Pulse Oximetry 97 Oxygen Delivery Intake/Output Intake/Output: Intake & Output 11/09/24 11/10/24 11/11/24 11/12/24 23:59 23:59 23:59 23:59 Intake Total 1421.3333 4288.9667 1998.9 1449 Output Total 1300 1450 2250 1100 Balance 121.3333 2838.9667 -251.1 349 Meds/Results Medications: Active Medications Generic Name Dose Route Start Last Admin Trade Name Freq PRN Reason Stop Dose Admin Acetaminophen 650 mg 11/11/24 01:12 11/11/24 08:09 Acetaminophen 650 Mg Suppository RECTAL 650 mg Q4H PRN Administration Mild Pain (1-3) or Fever Dextrose 12.5 gm 11/09/24 08:22 Dextrose 50% 25 Gm/50 Ml Syringe IV PUSH PRN PRN Hypoglycemia Protocol Enoxaparin Sodium 40 mg 11/10/24 09:00 11/11/24 08:07 Enoxaparin 40 Mg/0.4 Ml Syringe SUB-Q 40 mg DAILY KIKE Administration Glucagon 1 mg 11/09/24 08:22 Glucagon For Inj 1 Mg Vial IM PRN PRN Hypoglycemia Protocol Glucose 15 gm 11/09/24 08:22 Glucose Oral Gel 15 Gm Of Glucse In 37.5 Gm Tube PO PRN PRN Hypoglycemia Protocol Dextrose 1,000 mls @ 100 mls/hr 11/09/24 08:22 Dextrose 5% 1,000 Ml IVPB PRN PRN Hypoglycemia Protocol Potassium Chloride/Sodium Chloride 1,000 mls @ 50 mls/hr 11/11/24 09:00 11/12/24 06:18 Kcl 20 Meq/0.45% Ns IV CONT 50 mls/hr .Q20H KIKE Administration Insulin Aspart 4 - 8 units 11/11/24 13:00 11/12/24 08:45 Insulin Aspart (*Bkc) 100 Units/Ml SUB-Q 4 units Q4HR KIKE Administration Protocol Insulin Glargine 28 units 11/12/24 09:00 11/12/24 08:44 Insulin Glargine (*Bkc) 100 Units/Ml SUB-Q 28 units QAM KIKE Administration Labetalol HCl 20 mg 11/10/24 10:59 11/11/24 20:34 Labetalol Hcl Inj 100 Mg/20 Ml Vial IV PUSH 20 mg Q4H PRN Administration SBP > 160 and HR> 60 -1st choice Pantoprazole Sodium 40 mg 11/10/24 09:00 11/12/24 08:44 Pantoprazole Sodium Iv 40 Mg Vial IV PUSH 40 mg QAM KIKE Administration Radiology Results: ITS Impressions Head CT 11/09/24 09:07 IMPRESSION: No acute intracranial findings. Renal Ultrasound 11/09/24 11:13 IMPRESSION: 1. Normal kidneys. No hydronephrosis. Brain MRI 11/11/24 12:53 IMPRESSION: No acute abnormality. Probable tiny chronic lacunar infarct as above. Minimal left ethmoid sinus disease. Chest X-Ray 11/11/24 13:06 IMPRESSION: 1. No acute cardiopulmonary disease. Abdomen X-Ray 11/11/24 14:41 IMPRESSION: Nasogastric tube in good position and ready for immediate use. Labs Labs: Laboratory Results - last 24 hr 11/11/24 11/11/24 11/11/24 01:59 09:54 10:02 WBC RBC Hgb Hct MCV MCH MCHC RDW Plt Count MPV Sodium 146 H Potassium 3.7 Chloride 114 H Carbon Dioxide 22 Anion Gap 10 BUN 12 Creatinine 0.57 L Estim Creat Clear Calc 140 Estimated GFR > 60 Glucose 184 H POC Capillary Glucose 207 H Calcium 8.9 Phosphorus Magnesium Total Bilirubin AST ALT Alkaline Phosphatase Total Protein Albumin Procalcitonin 0.2 Influenza A (RT-PCR) Influenza B (RT-PCR) RSV (RT-PCR) SARS-CoV-2 RNA (RT-PCR) 11/11/24 11/11/24 11/11/24 10:27 11:04 11:53 WBC RBC Hgb Hct MCV MCH MCHC RDW Plt Count MPV Sodium Potassium Chloride Carbon Dioxide Anion Gap BUN Creatinine Estim Creat Clear Calc Estimated GFR Glucose POC Capillary Glucose 211 H 227 H Calcium Phosphorus Magnesium Total Bilirubin AST ALT Alkaline Phosphatase Total Protein Albumin Procalcitonin Influenza A (RT-PCR) Negative Influenza B (RT-PCR) Negative RSV (RT-PCR) Negative SARS-CoV-2 RNA (RT-PCR) Negative 11/11/24 11/11/24 11/11/24 14:05 16:26 20:30 WBC RBC Hgb Hct MCV MCH MCHC RDW Plt Count MPV Sodium 145 Potassium 4.0 Chloride 114 H Carbon Dioxide 16 L Anion Gap 15 H BUN 13 Creatinine 0.57 L Estim Creat Clear Calc 140 Estimated GFR > 60 Glucose 252 H POC Capillary Glucose 261 H 214 H Calcium 8.4 Phosphorus Magnesium Total Bilirubin AST ALT Alkaline Phosphatase Total Protein Albumin Procalcitonin Influenza A (RT-PCR) Influenza B (RT-PCR) RSV (RT-PCR) SARS-CoV-2 RNA (RT-PCR) 11/12/24 11/12/24 11/12/24 03:06 03:31 06:15 WBC 7.4 RBC 4.56 L Hgb 13.9 L Hct 40.8 L MCV 89.5 MCH 30.5 MCHC 34.1 RDW 13.0 Plt Count 179 MPV 9.9 Sodium 144 Potassium 3.9 Chloride 111 H Carbon Dioxide 19 L Anion Gap 14 H BUN 15 Creatinine 0.59 L Estim Creat Clear Calc 136 Estimated GFR > 60 Glucose 251 H POC Capillary Glucose 257 H 247 H Calcium 8.8 Phosphorus 2.6 Magnesium 2.2 Total Bilirubin 1.2 AST 13 L ALT 12 Alkaline Phosphatase 103 Total Protein 7.0 Albumin 3.6 Procalcitonin Influenza A (RT-PCR) Influenza B (RT-PCR) RSV (RT-PCR) SARS-CoV-2 RNA (RT-PCR) 11/12/24 08:25 WBC RBC Hgb Hct MCV MCH MCHC RDW Plt Count MPV Sodium Potassium Chloride Carbon Dioxide Anion Gap BUN Creatinine Estim Creat Clear Calc Estimated GFR Glucose POC Capillary Glucose 232 H Calcium Phosphorus Magnesium Total Bilirubin AST ALT Alkaline Phosphatase Total Protein Albumin Procalcitonin Influenza A (RT-PCR) Influenza B (RT-PCR) RSV (RT-PCR) SARS-CoV-2 RNA (RT-PCR) Quality VTE Prophylaxis VTE prophylaxis: mechanical ordered
--- NOTE | 2024-11-12 11:24 | PCSTNOTE ---
Please refer to the Modified Barium Swallow Evaluation in the EMR. The above pleasant and more alert patient was seen for an inpatient modified barium swallow. He was alert and seemed more responsive than yesterday (during bedside swallow eval). The patient denied difficulty swallowing. He is currently NPO with an NGT in place. The patient consistently coughed after pudding trials during the bedside swallow evaluation yesterday. The patient was seated for a lateral view and presented with 5cc of thin liquid barium via spoon, pudding consistency barium via a spoon, cracker coated with barium pudding via spoon, and uncontrolled thin liquid barium which was presented via a cup & straw. Oral preparatory and oral phase symptoms: none. Pharyngeal phase symptoms: laryngeal penetration with the trials of thin liquid via cup sips and straw drinking. With the cup sip, the penetration made contact with the vocal cords but it was cleared with throat clearing. With straw drinking, the penetration was more shallow and again cleared. Esophageal stage symptoms: none. No aspiration occurred. Impressions: Normal /functional swallow Ability No further ST is warranted at this time.
[2024-11-12 11:31] LABS: Glucose Point of Care 235 mg/dl (65-105)
--- NOTE | 2024-11-12 12:04 | PCNFU ---
Nutrition Follow-Up Complete: Inadequate Oral Intake as related to DKA as evidenced by NPO. Goal: Meet estimated nutritional needs. Patient is progressing towards goal. We will continue current goal. Pt current nutrition is DBCC diet with Glucerna shakes TID Last recorded weight is 76.5 kg, up from 75.2 kg on admit. Bowel Motility: No BM reported. Labs Reviewed:Glu 251, Cr 0.59, Hct 40.8, Hgb 13.9 Meds Noted:Protonix, Lovenox, Lantus, NovoLog. Skin: WNL Additional Notes: Patient had MBS today, passed. Diet order has advanced to a DBCC diet with Glucerna shakes TID (220 kcal 10 gm protein). Tube feedings have been discontinued. Agree with diet orders. Will monitor weight, labs, skin, labs, diet orders, meds every 3 days.
[2024-11-12 17:00] LABS: Glucose Point of Care 230 mg/dl (65-105)
--- NOTE | 2024-11-12 17:27 | PM.IMPN ---
Progress Note: A&P Assessment and Plan (1) Metabolic encephalopathy: Code(s): G93.41 - Metabolic encephalopathy Status: Acute (2) Electrolyte abnormality: Code(s): E87.8 - Other disorders of electrolyte and fluid balance, not elsewhere classified Status: Acute (3) DANIEL (acute kidney injury): Code(s): N17.9 - Acute kidney failure, unspecified Status: Acute (4) DKA, type 2: Code(s): E11.10 - Type 2 diabetes mellitus with ketoacidosis without coma Status: Acute Plan Patient is quite somnolent does not provide any ROS or history, patient is seen by [facility] [employer] [facility] and DKA protocol is in place blood sugars are trending down will continue to monitor with [employer]. Suspect patient is a type 2 diabetes non compliant his A1c is 12.4. patient still not be providing any review of symptoms or history, today patient's son came to visit the patient provide a little more history patient does have a history of alcohol abuse, patient seen by [employer] [employer] [facility] remains on DKA protocol however his blood sugars are improving anion gap is closed. Patient also seen by neurologist suspect patient has a metabolic encephalopathy secondary to DKA, today patient is more awake and able to communicate some, stats he did not know he has diabetes, and was not on any medication, today patient is out of the bed sitting in the chair, worked with PT using a walker, once clinicall will stable, will transfer patient out of ICU, will consult adaptive physical educator and further recommendation to follow, will reassess the patient and further recommendation to follow. Subjective Date/time seen: 11/12/24 17:27 Interval history: 49 year old male arrives to the Emergency Department via EMS. EMS was called by family for decreasing level of consciousness over past 4 days. Family called tonight because his breathing was fast. MD complaint: altered mental status Patient is quite somnolent does not provide any ROS or history, patient is seen by [facility] [employer] [facility] and DKA protocol is in place blood sugars are trending down will continue to monitor with [employer]. Suspect patient is a type 2 diabetes non compliant his A1c is 12.4. patient still not be providing any review of symptoms or history, today patient's son came to visit the patient provide a little more history patient does have a history of alcohol abuse, patient seen by [employer] [employer] [facility] remains on DKA protocol however his blood sugars are improving anion gap is closed. Patient also seen by neurologist suspect patient has a metabolic encephalopathy secondary to DKA, today patient is more awake and able to communicate some, stats he did not know he has diabetes, and was not on any medication, today patient is out of the bed sitting in the chair, worked with PT using a walker, once clinicall will stable, will transfer patient out of ICU, will consult adaptive physical educator and further recommendation to follow, will reassess the patient and further recommendation to follow. Review of Systems Review of Systems: All systems reviewed & are unremarkable except as noted in HPI and below ROS unobtainable: Yes unobtainable due to mental status Exam Narrative: Patient is comfortable, NAD HEENT: eyes are clear and none icteric LUNGS:CTA HEART: RR S1S2 ABD: BS+, Soft and nontender Lower extremities: no edema SKIN: nonjaundiced Neuro: grossly intact. Objective Data Vital Signs Vital Signs: Vital Signs - 24 hr 11/11/24 18:00 11/11/24 18:00 11/11/24 20:00 Temperature Pulse Rate 106 H 106 H Respiratory Rate 26 H Blood Pressure 160/94 H Pulse Oximetry 97 98 Oxygen Delivery Room Air 11/11/24 20:00 11/11/24 20:00 11/11/24 20:34 Temperature 37.2 C Pulse Rate 109 H 111 H 110 H Respiratory Rate 25 H Blood Pressure 171/105 H Pulse Oximetry 98 Oxygen Delivery 11/11/24 22:00 11/11/24 22:00 11/12/24 00:00 Temperature Pulse Rate 96 96 Respiratory Rate 24 H Blood Pressure 140/84 Pulse Oximetry 98 97 Oxygen Delivery Room Air 11/12/24 00:00 11/12/24 00:00 11/12/24 02:00 Temperature 36.8 C Pulse Rate 97 97 96 Respiratory Rate 22 H Blood Pressure 144/89 H Pulse Oximetry 97 Oxygen Delivery 11/12/24 02:00 11/12/24 04:00 11/12/24 04:00 Temperature 36.9 C Pulse Rate 96 98 Respiratory Rate 22 H 19 Blood Pressure 135/82 128/86 Pulse Oximetry 95 95 95 Oxygen Delivery Room Air 11/12/24 04:00 11/12/24 06:00 11/12/24 06:00 Temperature Pulse Rate 98 96 96 Respiratory Rate 17 Blood Pressure 121/88 Pulse Oximetry 96 Oxygen Delivery 11/12/24 08:00 11/12/24 08:00 11/12/24 08:00 Temperature 37.2 C Pulse Rate 97 97 Respiratory Rate 17 15 Blood Pressure 130/89 Pulse Oximetry 96 97 Oxygen Delivery Room Air 11/12/24 08:00 11/12/24 14:52 Temperature Pulse Rate 96 Respiratory Rate Blood Pressure Pulse Oximetry Oxygen Delivery Room Air Intake/Output Intake/Output: Intake & Output 11/09/24 11/10/24 11/11/24 11/12/24 23:59 23:59 23:59 23:59 Intake Total 1421.3333 4288.9667 1998.9 1569 Output Total 1300 1450 2250 1100 Balance 121.3333 2838.9667 -251.1 469 Meds/Results Medications: Active Medications Generic Name Dose Route Start Last Admin Trade Name Freq PRN Reason Stop Dose Admin Acetaminophen 650 mg 11/11/24 01:12 11/11/24 08:09 Acetaminophen 650 Mg Suppository RECTAL 650 mg Q4H PRN Administration Mild Pain (1-3) or Fever Dextrose 12.5 gm 11/09/24 08:22 Dextrose 50% 25 Gm/50 Ml Syringe IV PUSH PRN PRN Hypoglycemia Protocol Enoxaparin Sodium 40 mg 11/10/24 09:00 11/11/24 08:07 Enoxaparin 40 Mg/0.4 Ml Syringe SUB-Q 40 mg DAILY KIKE Administration Glucagon 1 mg 11/09/24 08:22 Glucagon For Inj 1 Mg Vial IM PRN PRN Hypoglycemia Protocol Glucose 15 gm 11/09/24 08:22 Glucose Oral Gel 15 Gm Of Glucse In 37.5 Gm Tube PO PRN PRN Hypoglycemia Protocol Dextrose 1,000 mls @ 100 mls/hr 11/09/24 08:22 Dextrose 5% 1,000 Ml IVPB PRN PRN Hypoglycemia Protocol Potassium Chloride/Sodium Chloride 1,000 mls @ 50 mls/hr 11/11/24 09:00 11/12/24 06:18 Kcl 20 Meq/0.45% Ns IV CONT 50 mls/hr .Q20H KIKE Administration Insulin Aspart 4 - 8 units 11/11/24 13:00 11/12/24 17:00 Insulin Aspart (*Bkc) 100 Units/Ml SUB-Q 4 units Q4HR KIKE Administration Protocol Insulin Glargine 28 units 11/12/24 09:00 11/12/24 08:44 Insulin Glargine (*Bkc) 100 Units/Ml SUB-Q 28 units QAM [facility] Administration Labetalol HCl 20 mg 11/10/24 10:59 11/11/24 20:34 Labetalol Hcl Inj 100 Mg/20 Ml Vial IV PUSH 20 mg Q4H PRN Administration SBP > 160 and HR> 60 -1st choice Pantoprazole Sodium 40 mg 11/10/24 09:00 11/12/24 08:44 Pantoprazole Sodium Iv 40 Mg Vial IV PUSH 40 mg QAM [facility] Administration Radiology Results: ITS Impressions Head CT 11/09/24 09:07 IMPRESSION: No acute intracranial findings. Renal Ultrasound 11/09/24 11:13 IMPRESSION: 1. Normal kidneys. No hydronephrosis. Brain MRI 11/11/24 12:53 IMPRESSION: No acute abnormality. Probable tiny chronic lacunar infarct as above. Minimal left ethmoid sinus disease. Chest X-Ray 11/11/24 13:06 IMPRESSION: 1. No acute cardiopulmonary disease. Abdomen X-Ray 11/11/24 14:41 IMPRESSION: Nasogastric tube in good position and ready for immediate use. Modified Barium Swallow 11/12/24 12:54 IMPRESSION: Laryngeal penetration with spontaneous clearance. No aspiration. Please refer to speech pathologist report for additional detail. Labs Labs: Laboratory Results - last 24 hr 11/11/24 11/12/24 11/12/24 20:30 03:06 03:31 WBC 7.4 RBC 4.56 L Hgb 13.9 L Hct 40.8 L MCV 89.5 MCH 30.5 MCHC 34.1 RDW 13.0 Plt Count 179 MPV 9.9 Sodium 144 Potassium 3.9 Chloride 111 H Carbon Dioxide 19 L Anion Gap 14 H BUN 15 Creatinine 0.59 L Estim Creat Clear Calc 136 Estimated GFR > 60 Glucose 251 H POC Capillary Glucose 214 H 257 H Calcium 8.8 Phosphorus 2.6 Magnesium 2.2 Total Bilirubin 1.2 AST 13 L ALT 12 Alkaline Phosphatase 103 Total Protein 7.0 Albumin 3.6 11/12/24 11/12/24 11/12/24 06:15 08:25 11:26 WBC RBC Hgb Hct MCV MCH MCHC RDW Plt Count MPV Sodium Potassium Chloride Carbon Dioxide Anion Gap BUN Creatinine Estim Creat Clear Calc Estimated GFR Glucose POC Capillary Glucose 247 H 232 H 235 H Calcium Phosphorus Magnesium Total Bilirubin AST ALT Alkaline Phosphatase Total Protein Albumin 11/12/24 16:57 WBC RBC Hgb Hct MCV MCH MCHC RDW Plt Count MPV Sodium Potassium Chloride Carbon Dioxide Anion Gap BUN Creatinine Estim Creat Clear Calc Estimated GFR Glucose POC Capillary Glucose 230 H Calcium Phosphorus Magnesium Total Bilirubin AST ALT Alkaline Phosphatase Total Protein Albumin Quality VTE Prophylaxis VTE prophylaxis: mechanical ordered
--- NOTE | 2024-11-12 18:29 | PC.NURSE ---
This patient, Manish Riley, was received from ICU on 11/12/24 at 1829. Patient/family oriented to unit policies and routines
[2024-11-12 22:45] LABS: Glucose Point of Care 312 mg/dl (65-105)
[2024-11-12] MEDS: GABAPENTIN 400 MG CAPSULE PO (23:51)
[2024-11-13] MEDS: INSULIN ASPART (*BKC) 100 UNITS/ML SUB-Q (00:36)
[2024-11-13 01:03] LABS: Glucose Point of Care 237 mg/dl (65-105)
[2024-11-13 05:55] LABS: Glucose Point of Care 191 mg/dl (65-105)
[2024-11-13 06:00] VITALS: BP 116/77; PULSE 88; RESP 18; TEMP 36.9; O2SAT 100
[2024-11-13 06:26] LABS: Basophils Absolute Auto 0.1 K/mm3 (0.0-0.1); Basophils Percent Auto 0.8 % (0.2-1.2); Eosinophils Absolute Auto 0.2 K/mm3 (0-0.3); Eosinophils Percent Auto 2.1 % (0-4.4); Hematocrit 37.8 % (42.0-52.0); Hemoglobin 13.1 g/dL (14.0-18.0); Immature Granulocyte Absolute 0.06 K/mm3 (0.00-0.031); Immature Granulocyte Percent A 0.8 % (0-0.5); Lymphocytes Absolute Auto 2.75 K/mm3 (0.9-3.2); Lymphocytes Percent Auto 34.7 % (18.3-44.2); Mean Corpuscular HGB Conc 34.7 g/dl (32-36); Mean Corpuscular Hemoglobin 31.1 pg (26-34); Mean Corpuscular Volume 89.8 fl (80-100); Mean Platelet Volume 9.9 fl (7.4-10.4); Monocytes Absolute Auto 0.5 K/mm3 (0.1-0.6); Monocytes Percent Auto 5.7 % (2.6-8.5); Neutrophils Absolute Auto 4.4 K/mm3 (1.3-6.7); Neutrophils Percent Auto 55.9 % (45.5-73.1); Platelet Count Result 180 k/mm3 (150-375); Red Blood Count 4.21 M/mm3 (4.6-6.20); Red Cell Distribution Width 12.4 % (11.5-14.5); White Blood Count 7.9 K/mm3 (4.5-10.0)
[2024-11-13 06:39] LABS: Alanine Aminotransferase 13 U/L (6-50); Albumin Level 3.2 g/dL (3.5-5.1); Alkaline Phosphatase 99 U/L (38-126); Anion Gap 8 mmol/L (4-12); Aspartate Amino Transferase 15 U/L (17-59); Bilirubin,Total 0.9 mg/dL (0.2-1.3); Blood Urea Nitrogen 14 mg/dL (9-20); Calcium 8.3 mg/dL (8.4-10.2); Carbon Dioxide 25 mmol/L (22-30); Chloride 108 mmol/L (98-107); Estimated CRCL calculation 149 ml/min; Estimated Glomerular Filt Rate > 60; Glucose 173 mg/dL (65-110); Magnesium 2.2 mg/dL (1.6-2.3); Phosphorus 3.2 mg/dL (2.5-4.5); Potassium 3.3 mmol/L (3.4-5.0); Sodium 141 mmol/L (137-145)
[2024-11-13 07:44] LABS: Glucose Point of Care 199 mg/dl (65-105)
[2024-11-13 07:50] VITALS: BP 128/80; PULSE 78; RESP 18; TEMP 36.9; O2SAT 100
[2024-11-13] MEDS: POTASSIUM CHLORIDE 20 MEQ ER TABLET 40 MEQ PO (08:14)
[2024-11-13] MEDS: glipiZIDE 5 MG TABLET PO ×2 (08:15→17:06)
[2024-11-13] MEDS: metFORMIN HCL XR 500 MG TAB.SR.24H PO ×2 (08:15→17:06)
[2024-11-13] MEDS: GABAPENTIN 400 MG CAPSULE PO ×2 (08:15→17:07)
[2024-11-13] MEDS: PANTOPRAZOLE SODIUM IV 40 MG VIAL IV PUSH (08:16)
[2024-11-13 11:32] LABS: Glucose Point of Care 246 mg/dl (65-105)
--- NOTE | 2024-11-13 12:58 | PM.IMPN ---
Progress Note: A&P Assessment and Plan (1) Metabolic encephalopathy: Code(s): G93.41 - Metabolic encephalopathy Status: Acute (2) Electrolyte abnormality: Code(s): E87.8 - Other disorders of electrolyte and fluid balance, not elsewhere classified Status: Acute (3) DANIEL (acute kidney injury): Code(s): N17.9 - Acute kidney failure, unspecified Status: Acute (4) DKA, type 2: Code(s): E11.10 - Type 2 diabetes mellitus with ketoacidosis without coma Status: Acute Plan 49 year old male arrives to the Emergency Department via EMS. EMS was called by family for decreasing level of consciousness over past 4 days. Family called tonight because his breathing was fast. MD complaint: altered mental status Patient is quite somnolent does not provide any ROS or history, patient is seen by rotary cutter operator and DKA protocol is in place blood sugars are trending down will continue to monitor with rotary cutter operator. Suspect patient is a type 2 diabetes non compliant his A1c is 12.4. patient still not be providing any review of symptoms or history, today patient's son came to visit the patient provide a little more history patient does have a history of alcohol abuse, patient seen by rotary cutter operator remains on DKA protocol however his blood sugars are improving anion gap is closed. Patient also seen by neurologist suspect patient has a metabolic encephalopathy secondary to DKA, today patient is more awake and able to communicate some, stats he did not know he has diabetes, and was not on any medication, today patient is out of the bed sitting in the chair, worked with PT using a walker, once clinicall will stable, will transfer patient out of ICU, will consult special educator and further recommendation to follow, will reassess the patient and further recommendation to follow. Patient is out of ICU and on medical floor, provide more history and stats several months prior to coming to the hospital, he had polyuria, polydipsia, polyphagia and lost wt, but did not sick any medical attention, most likely patient has type 2 diabetes, will stop insulin and start patient of metformin and glipizide, patient will need diabetes eye exam after discharge. patient was educated by special educator Subjective Date/time seen: 11/13/24 12:58 Interval history: 49 year old male arrives to the Emergency Department via EMS. EMS was called by family for decreasing level of consciousness over past 4 days. Family called tonight because his breathing was fast. MD complaint: altered mental status Patient is quite somnolent does not provide any ROS or history, patient is seen by rotary cutter operator and DKA protocol is in place blood sugars are trending down will continue to monitor with rotary cutter operator. Suspect patient is a type 2 diabetes non compliant his A1c is 12.4. patient still not be providing any review of symptoms or history, today patient's son came to visit the patient provide a little more history patient does have a history of alcohol abuse, patient seen by rotary cutter operator remains on DKA protocol however his blood sugars are improving anion gap is closed. Patient also seen by neurologist suspect patient has a metabolic encephalopathy secondary to DKA, today patient is more awake and able to communicate some, stats he did not know he has diabetes, and was not on any medication, today patient is out of the bed sitting in the chair, worked with PT using a walker, once clinicall will stable, will transfer patient out of ICU, will consult special educator and further recommendation to follow, will reassess the patient and further recommendation to follow. Patient is out of ICU and on medical floor, provide more history and stats several months prior to coming to the hospital, he had polyuria, polydipsia, polyphagia and lost wt, but did not sick any medical attention, most likely patient has type 2 diabetes, will stop insulin and start patient of metformin and glipizide, patient will need diabetes eye exam after discharge. patient was educated by special educator Review of Systems Review of Systems: All systems reviewed & are unremarkable except as noted in HPI and below Exam Narrative: Patient is comfortable, NAD HEENT: eyes are clear and none icteric LUNGS:CTA HEART: RR S1S2 ABD: BS+, Soft and nontender Lower extremities: no edema SKIN: nonjaundiced Neuro: grossly intact. Objective Data Vital Signs Vital Signs: Vital Signs - 24 hr 11/12/24 14:52 11/12/24 18:32 11/12/24 21:07 Temperature 36.1 C L Pulse Rate 92 Respiratory Rate 16 Blood Pressure 129/71 Pulse Oximetry 100 Oxygen Delivery Room Air Room Air 11/12/24 23:17 11/13/24 06:00 11/13/24 07:50 Temperature 36.8 C 36.9 C 36.9 C Pulse Rate 87 88 78 Respiratory Rate 18 18 18 Blood Pressure 114/75 116/77 128/80 Pulse Oximetry 100 100 100 Oxygen Delivery 11/13/24 08:40 Temperature Pulse Rate Respiratory Rate Blood Pressure Pulse Oximetry Oxygen Delivery Room Air Intake/Output Intake/Output: Intake & Output 11/10/24 11/11/24 11/12/24 11/13/24 23:59 23:59 23:59 23:59 Intake Total 4288.9667 1998.9 2597.3 390 Output Total 1450 2250 1100 650 Balance 2838.9667 -251.1 1497.3 -260 Meds/Results Medications: Active Medications Generic Name Dose Route Start Last Admin Trade Name Freq PRN Reason Stop Dose Admin Acetaminophen 650 mg 11/11/24 01:12 11/11/24 08:09 Acetaminophen 650 Mg Suppository RECTAL 650 mg Q4H PRN Administration Mild Pain (1-3) or Fever Dextrose 12.5 gm 11/13/24 08:03 Dextrose 50% 25 Gm/50 Ml Syringe IV PUSH PRN PRN Hypoglycemia Protocol Enoxaparin Sodium 40 mg 11/10/24 09:00 11/11/24 08:07 Enoxaparin 40 Mg/0.4 Ml Syringe SUB-Q 40 mg DAILY KIKE Administration Gabapentin 400 mg 11/12/24 23:35 11/13/24 08:15 Gabapentin 400 Mg Capsule PO 400 mg BID KIKE Administration Glipizide 5 mg 11/13/24 08:05 11/13/24 08:15 Glipizide 5 Mg Tablet PO 5 mg BIDWM KIKE Administration Glucagon 1 mg 11/13/24 08:03 Glucagon For Inj 1 Mg Vial IM PRN PRN Hypoglycemia Protocol Glucose 15 gm 11/13/24 08:03 Glucose Oral Gel 15 Gm Of Glucse In 37.5 Gm Tube PO PRN PRN Hypoglycemia Protocol Potassium Chloride/Sodium Chloride 1,000 mls @ 50 mls/hr 11/11/24 09:00 11/12/24 22:04 Kcl 20 Meq/0.45% Ns IV CONT 50 mls/hr .Q20H KIKE Administration Dextrose 1,000 mls @ 100 mls/hr 11/13/24 08:03 Dextrose 5% 1,000 Ml IVPB PRN PRN Hypoglycemia Protocol Labetalol HCl 20 mg 11/10/24 10:59 11/11/24 20:34 Labetalol Hcl Inj 100 Mg/20 Ml Vial IV PUSH 20 mg Q4H PRN Administration SBP > 160 and HR> 60 -1st choice Metformin HCl 500 mg 11/13/24 08:05 11/13/24 08:15 Metformin Hcl Xr 500 Mg Tab.Sr.24h PO 500 mg BIDWM KIKE Administration Pantoprazole Sodium 40 mg 11/10/24 09:00 11/13/24 08:16 Pantoprazole Sodium Iv 40 Mg Vial IV PUSH 40 mg QAM KIKE Administration Radiology Results: ITS Impressions Head CT 11/09/24 09:07 IMPRESSION: No acute intracranial findings. Renal Ultrasound 11/09/24 11:13 IMPRESSION: 1. Normal kidneys. No hydronephrosis. Brain MRI 11/11/24 12:53 IMPRESSION: No acute abnormality. Probable tiny chronic lacunar infarct as above. Minimal left ethmoid sinus disease. Chest X-Ray 11/11/24 13:06 IMPRESSION: 1. No acute cardiopulmonary disease. Abdomen X-Ray 11/11/24 14:41 IMPRESSION: Nasogastric tube in good position and ready for immediate use. Modified Barium Swallow 11/12/24 12:54 IMPRESSION: Laryngeal penetration with spontaneous clearance. No aspiration. Please refer to speech pathologist report for additional detail. Labs Labs: Laboratory Results - last 24 hr 11/12/24 11/12/24 11/13/24 16:57 21:13 00:28 WBC RBC Hgb Hct MCV MCH MCHC RDW Plt Count MPV Immature Gran % (Auto) Neut % (Auto) Lymph % (Auto) Gonzales % (Auto) Eos % (Auto) Baso % (Auto) Lymph # (Auto) Gonzales # (Auto) Eos # (Auto) Baso # (Auto) Abs Immat Gran (auto) Absolute Neuts (auto) Absolute Nucleated RBC Nucleated RBC % Sodium Potassium Chloride Carbon Dioxide Anion Gap BUN Creatinine Estim Creat Clear Calc Estimated GFR Glucose POC Capillary Glucose 230 H 312 H 237 H Calcium Phosphorus Magnesium Total Bilirubin AST ALT Alkaline Phosphatase Total Protein Albumin 11/13/24 11/13/24 11/13/24 05:02 05:49 07:33 WBC 7.9 RBC 4.21 L Hgb 13.1 L Hct 37.8 L MCV 89.8 MCH 31.1 MCHC 34.7 RDW 12.4 Plt Count 180 MPV 9.9 Immature Gran % (Auto) 0.8 H Neut % (Auto) 55.9 Lymph % (Auto) 34.7 Gonzales % (Auto) 5.7 Eos % (Auto) 2.1 Baso % (Auto) 0.8 Lymph # (Auto) 2.75 Gonzales # (Auto) 0.5 Eos # (Auto) 0.2 Baso # (Auto) 0.1 Abs Immat Gran (auto) 0.06 H Absolute Neuts (auto) 4.4 Absolute Nucleated RBC 0.000 Nucleated RBC % 0.0 Sodium 141 Potassium 3.3 L Chloride 108 H Carbon Dioxide 25 Anion Gap 8 BUN 14 Creatinine 0.53 L Estim Creat Clear Calc 149 Estimated GFR > 60 Glucose 173 H POC Capillary Glucose 191 H 199 H Calcium 8.3 L Phosphorus 3.2 Magnesium 2.2 Total Bilirubin 0.9 AST 15 L ALT 13 Alkaline Phosphatase 99 Total Protein 6.0 L Albumin 3.2 L 11/13/24 11:25 WBC RBC Hgb Hct MCV MCH MCHC RDW Plt Count MPV Immature Gran % (Auto) Neut % (Auto) Lymph % (Auto) Gonzales % (Auto) Eos % (Auto) Baso % (Auto) Lymph # (Auto) Gonzales # (Auto) Eos # (Auto) Baso # (Auto) Abs Immat Gran (auto) Absolute Neuts (auto) Absolute Nucleated RBC Nucleated RBC % Sodium Potassium Chloride Carbon Dioxide Anion Gap BUN Creatinine Estim Creat Clear Calc Estimated GFR Glucose POC Capillary Glucose 246 H Calcium Phosphorus Magnesium Total Bilirubin AST ALT Alkaline Phosphatase Total Protein Albumin Quality VTE Prophylaxis VTE prophylaxis: mechanical ordered
[2024-11-13 16:50] LABS: Glucose Point of Care 245 mg/dl (65-105)
[2024-11-13 16:52] VITALS: BP 113/78; PULSE 82; RESP 18; TEMP 36.3; O2SAT 99
[2024-11-13 21:25] LABS: Glucose Point of Care 319 mg/dl (65-105)
[2024-11-13 21:46] VITALS: BP 110/77; PULSE 88; RESP 18; TEMP 36.6; O2SAT 100
[2024-11-14 05:58] LABS: Hematocrit 34.9 % (42.0-52.0); Mean Corpuscular HGB Conc 34.4 g/dl (32-36); Mean Corpuscular Hemoglobin 30.6 pg (26-34); Mean Platelet Volume 9.9 fl (7.4-10.4); Platelet Count Result 183 k/mm3 (150-375); Red Blood Count 3.92 M/mm3 (4.6-6.20); Red Cell Distribution Width 12.1 % (11.5-14.5)
[2024-11-14 06:00] VITALS: BP 113/74; PULSE 84; RESP 18; TEMP 36.4; O2SAT 100
[2024-11-14 06:15] LABS: Alanine Aminotransferase 14 U/L (6-50); Alkaline Phosphatase 92 U/L (38-126); Anion Gap 7 mmol/L (4-12); Aspartate Amino Transferase 14 U/L (17-59); Bilirubin,Total 0.5 mg/dL (0.2-1.3); Blood Urea Nitrogen 9 mg/dL (9-20); Calcium 8.3 mg/dL (8.4-10.2); Carbon Dioxide 26 mmol/L (22-30); Chloride 106 mmol/L (98-107); Estimated CRCL calculation 134 ml/min; Estimated Glomerular Filt Rate > 60; Glucose 229 mg/dL (65-110); Potassium 3.8 mmol/L (3.4-5.0); Sodium 139 mmol/L (137-145)
[2024-11-14 06:55] LABS: Glucose Point of Care 245 mg/dl (65-105)
[2024-11-14] MEDS: PANTOPRAZOLE SODIUM IV 40 MG VIAL IV PUSH (07:56)
[2024-11-14] MEDS: metFORMIN HCL XR 500 MG TAB.SR.24H PO ×2 (07:57→17:10)
[2024-11-14] MEDS: GABAPENTIN 400 MG CAPSULE PO ×2 (07:57→17:10)
[2024-11-14] MEDS: glipiZIDE 5 MG TABLET PO ×2 (07:57→17:10)
[2024-11-14 08:00] VITALS: O2SAT 100
[2024-11-14 08:04] LABS: Glucose Point of Care 191 mg/dl (65-105)
[2024-11-14 11:51] LABS: Glucose Point of Care 256 mg/dl (65-105)
[2024-11-14 14:23] VITALS: BP 126/82; PULSE 91; RESP 17; TEMP 36.4; O2SAT 100
--- NOTE | 2024-11-14 14:40 | PM.IMPN ---
Progress Note: A&P Assessment and Plan (1) Metabolic encephalopathy: Code(s): G93.41 - Metabolic encephalopathy Status: Acute (2) Electrolyte abnormality: Code(s): E87.8 - Other disorders of electrolyte and fluid balance, not elsewhere classified Status: Acute (3) DANIEL (acute kidney injury): Code(s): N17.9 - Acute kidney failure, unspecified Status: Acute (4) DKA, type 2: Code(s): E11.10 - Type 2 diabetes mellitus with ketoacidosis without coma Status: Acute Plan 49 year old male arrives to the Emergency Department via EMS. EMS was called by family for decreasing level of consciousness over past 4 days. Family called tonight because his breathing was fast. MD complaint: altered mental status Patient is quite somnolent does not provide any ROS or history, patient is seen by mathematical sciences professor and DKA protocol is in place blood sugars are trending down will continue to monitor with mathematical sciences professor. Suspect patient is a type 2 diabetes non compliant his A1c is 12.4. patient still not be providing any review of symptoms or history, today patient's son came to visit the patient provide a little more history patient does have a history of alcohol abuse, patient seen by mathematical sciences professor remains on DKA protocol however his blood sugars are improving anion gap is closed. Patient also seen by neurologist suspect patient has a metabolic encephalopathy secondary to DKA, today patient is more awake and able to communicate some, stats he did not know he has diabetes, and was not on any medication, today patient is out of the bed sitting in the chair, worked with PT using a walker, once clinicall will stable, will transfer patient out of ICU, will consult ged preparation teacher and further recommendation to follow, will reassess the patient and further recommendation to follow. Patient is out of ICU and on medical floor, provide more history and stats several months prior to coming to the hospital, he had polyuria, polydipsia, polyphagia and lost wt, but did not sick any medical attention, most likely patient has type 2 diabetes, on 11/13 stopped insulin and started patient of metformin and glipizide, he is able to tolerate his oral medications, once he sees his primary care provider medication will need to be adjusted, patient is instructed that he will need diabetes eye exam after discharge. patient was educated by ged preparation teacher Subjective Date/time seen: 11/14/24 14:40 Interval history: 49 year old male arrives to the Emergency Department via EMS. EMS was called by family for decreasing level of consciousness over past 4 days. Family called tonight because his breathing was fast. MD complaint: altered mental status Patient is quite somnolent does not provide any ROS or history, patient is seen by mathematical sciences professor and DKA protocol is in place blood sugars are trending down will continue to monitor with mathematical sciences professor. Suspect patient is a type 2 diabetes non compliant his A1c is 12.4. patient still not be providing any review of symptoms or history, today patient's son came to visit the patient provide a little more history patient does have a history of alcohol abuse, patient seen by mathematical sciences professor remains on DKA protocol however his blood sugars are improving anion gap is closed. Patient also seen by neurologist suspect patient has a metabolic encephalopathy secondary to DKA, today patient is more awake and able to communicate some, stats he did not know he has diabetes, and was not on any medication, today patient is out of the bed sitting in the chair, worked with PT using a walker, once clinicall will stable, will transfer patient out of ICU, will consult ged preparation teacher and further recommendation to follow, will reassess the patient and further recommendation to follow. Patient is out of ICU and on medical floor, provide more history and stats several months prior to coming to the hospital, he had polyuria, polydipsia, polyphagia and lost wt, but did not sick any medical attention, most likely patient has type 2 diabetes, on 11/13 stopped insulin and started patient of metformin and glipizide, he is able to tolerate his oral medications, once he sees his primary care provider medication will need to be adjusted, patient is instructed that he will need diabetes eye exam after discharge. patient was educated by ged preparation teacher Review of Systems Review of Systems: All systems reviewed & are unremarkable except as noted in HPI and below Exam Narrative: Patient is comfortable, NAD HEENT: eyes are clear and none icteric LUNGS:CTA HEART: RR S1S2 ABD: BS+, Soft and nontender Lower extremities: no edema SKIN: nonjaundiced Neuro: grossly intact. Objective Data Vital Signs Vital Signs: Vital Signs - 24 hr 11/13/24 16:52 11/13/24 20:00 11/13/24 21:46 Temperature 36.3 C L 36.6 C Pulse Rate 82 88 Respiratory Rate 18 18 Blood Pressure 113/78 110/77 Pulse Oximetry 99 100 Oxygen Delivery Room Air 11/14/24 06:00 11/14/24 08:00 Temperature 36.4 C Pulse Rate 84 Respiratory Rate 18 Blood Pressure 113/74 Pulse Oximetry 100 100 Oxygen Delivery Room Air Intake/Output Intake/Output: Intake & Output 11/11/24 11/12/24 11/13/24 11/14/24 23:59 23:59 23:59 23:59 Intake Total 1998.9 2597.3 1410 240 Output Total 2250 1100 1150 800 Balance -251.1 1497.3 260 -560 Meds/Results Medications: Active Medications Generic Name Dose Route Start Last Admin Trade Name Freq PRN Reason Stop Dose Admin Acetaminophen 650 mg 11/11/24 01:12 11/11/24 08:09 Acetaminophen 650 Mg Suppository RECTAL 650 mg Q4H PRN Administration Mild Pain (1-3) or Fever Dextrose 12.5 gm 11/13/24 08:03 Dextrose 50% 25 Gm/50 Ml Syringe IV PUSH PRN PRN Hypoglycemia Protocol Enoxaparin Sodium 40 mg 11/10/24 09:00 11/11/24 08:07 Enoxaparin 40 Mg/0.4 Ml Syringe SUB-Q 40 mg DAILY KIKE Administration Gabapentin 400 mg 11/12/24 23:35 11/14/24 07:57 Gabapentin 400 Mg Capsule PO 400 mg BID KIKE Administration Glipizide 5 mg 11/13/24 08:05 11/14/24 07:57 Glipizide 5 Mg Tablet PO 5 mg BIDWM KIKE Administration Glucagon 1 mg 11/13/24 08:03 Glucagon For Inj 1 Mg Vial IM PRN PRN Hypoglycemia Protocol Glucose 15 gm 11/13/24 08:03 Glucose Oral Gel 15 Gm Of Glucse In 37.5 Gm Tube PO PRN PRN Hypoglycemia Protocol Dextrose 1,000 mls @ 100 mls/hr 11/13/24 08:03 Dextrose 5% 1,000 Ml IVPB PRN PRN Hypoglycemia Protocol Labetalol HCl 20 mg 11/10/24 10:59 11/11/24 20:34 Labetalol Hcl Inj 100 Mg/20 Ml Vial IV PUSH 20 mg Q4H PRN Administration SBP > 160 and HR> 60 -1st choice Metformin HCl 500 mg 11/13/24 08:05 11/14/24 07:57 Metformin Hcl Xr 500 Mg Tab.Sr.24h PO 500 mg BIDWM KIKE Administration Pantoprazole Sodium 40 mg 11/10/24 09:00 11/14/24 07:56 Pantoprazole Sodium Iv 40 Mg Vial IV PUSH 40 mg QAM KIKE Administration Radiology Results: ITS Impressions Head CT 11/09/24 09:07 IMPRESSION: No acute intracranial findings. Renal Ultrasound 11/09/24 11:13 IMPRESSION: 1. Normal kidneys. No hydronephrosis. Brain MRI 11/11/24 12:53 IMPRESSION: No acute abnormality. Probable tiny chronic lacunar infarct as above. Minimal left ethmoid sinus disease. Chest X-Ray 11/11/24 13:06 IMPRESSION: 1. No acute cardiopulmonary disease. Abdomen X-Ray 11/11/24 14:41 IMPRESSION: Nasogastric tube in good position and ready for immediate use. Modified Barium Swallow 11/12/24 12:54 IMPRESSION: Laryngeal penetration with spontaneous clearance. No aspiration. Please refer to speech pathologist report for additional detail. Labs Labs: Laboratory Results - last 24 hr 11/13/24 11/13/24 11/14/24 16:43 20:35 05:31 WBC 8.0 RBC 3.92 L Hgb 12.0 L Hct 34.9 L MCV 89.0 MCH 30.6 MCHC 34.4 RDW 12.1 Plt Count 183 MPV 9.9 Sodium 139 Potassium 3.8 Chloride 106 Carbon Dioxide 26 Anion Gap 7 BUN 9 D Creatinine 0.60 L Estim Creat Clear Calc 134 Estimated GFR > 60 Glucose 229 H POC Capillary Glucose 245 H 319 H Calcium 8.3 L Phosphorus 3.0 Magnesium 2.0 Total Bilirubin 0.5 AST 14 L ALT 14 Alkaline Phosphatase 92 Total Protein 6.0 L Albumin 3.0 L 11/14/24 11/14/24 11/14/24 06:50 08:01 11:47 WBC RBC Hgb Hct MCV MCH MCHC RDW Plt Count MPV Sodium Potassium Chloride Carbon Dioxide Anion Gap BUN Creatinine Estim Creat Clear Calc Estimated GFR Glucose POC Capillary Glucose 245 H 191 H 256 H Calcium Phosphorus Magnesium Total Bilirubin AST ALT Alkaline Phosphatase Total Protein Albumin Quality VTE Prophylaxis VTE prophylaxis: mechanical ordered
--- NOTE | 2024-11-14 14:40 | PCOTNOTE ---
Attempted to see pt for OT treatment this afternoon. Pt declined to participate in any therapeutic tasks and/or self care tasks. Pt states that he has been up and walking in the room with w/w without staff present and has been taking himself to the bathroom. Pt was educated on increase safety awareness and home health therapy for continued mobility/independence once home. RN was not available at this time to confirm pt's statements. Will attempt tomorrow per poc duration/frequency.
[2024-11-14 16:54] LABS: Glucose Point of Care 241 mg/dl (65-105)
[2024-11-14 20:12] LABS: Glucose Point of Care 313 mg/dl (65-105)
[2024-11-14 20:21] VITALS: BP 136/88; PULSE 91; RESP 18; TEMP 36.8; O2SAT 100
[2024-11-14] MEDS: PHARMACIST COMMUNICATION ORDER 1 EACH XX (22:01)
[2024-11-14] MEDS: INSULIN ASPART (*BKC) 100 UNITS/ML SUB-Q (22:08)
[2024-11-15 05:00] VITALS: BP 140/89; PULSE 81; RESP 18; TEMP 37; O2SAT 100
[2024-11-15 05:54] LABS: Phosphorus 3.8 mg/dL (2.5-4.5)
[2024-11-15 08:03] LABS: Glucose Point of Care 218 mg/dl (65-105)
[2024-11-15] MEDS: metFORMIN HCL XR 500 MG TAB.SR.24H PO (08:59)
[2024-11-15] MEDS: PANTOPRAZOLE SODIUM IV 40 MG VIAL IV PUSH (08:59)
[2024-11-15] MEDS: GABAPENTIN 400 MG CAPSULE PO (08:59)
[2024-11-15] MEDS: glipiZIDE 5 MG TABLET PO (08:59)
[2024-11-15] MEDS: INSULIN ASPART (*BKC) 100 UNITS/ML SUB-Q ×2 (09:00→12:18)
[2024-11-15 10:30] VITALS: BMI 24.2
--- NOTE | 2024-11-15 11:25 | PCNFU ---
Nutrition Follow-Up Complete: Inadequate Oral Intake as related to DKA as evidenced by NPO. Goal:Meet estimated nutritional needs. Pt current nutrition is Diabetic. Nutrition recommendation: continue with current plan of care. Last recorded weight is 76.6 kg. Bowel Motility: +BM 11/13 Labs Reviewed: Hgb:12, HCT:34.9, Cr:0.6, Glu:229 Meds Noted: protonix, glizipide, lantus, novolog Skin: WNL Additional Notes: Pt diet advanced to diabetic, intake 50-100%, reports good appetite and intake. No questions regarding diabetic diet, community health educator was just in room. Outpatient information provided and encouraged as needed. Will monitor weight, labs, skin, labs, diet orders, meds every 7 days.
[2024-11-15 12:08] LABS: Glucose Point of Care 217 mg/dl (65-105)
--- NOTE | 2024-11-15 13:05 | P.DS_ITS ---
DS: Summary Time Spent with Patient Time attestation: Total time spent providing and/or coordinating discharge services: DS: Data Data Completed and Pending Pending studies at discharge: Pending at discharge 11/11/24 08:09 Cytology [PTH] Routine Labs on day of discharge: Labs from last 24 hours 11/15/24 11/15/24 11/15/24 12:04 07:56 04:59 POC Capillary Glucose 217 H 218 H Phosphorus 3.8 11/14/24 11/14/24 19:49 16:51 POC Capillary Glucose 313 H 241 H Phosphorus Discharge Plan Discharge Attending physician on discharge: Helga Armendariz Consulting providers: Zafar Mac; Rodger Burton Discharging Clinician: Helga Armendariz Patient Disposition: Home, Self-Care Activity: as tolerated Diet: diabetic Discharge Instructions: patient is instructed to follow dietary instruction from labor relations specialist and avoid, bread, pasta, rice and carbs as much as possible eat more fruits, fibers and drink more fluids, patient to follow up with his primary care provider as soon as possible, patient instructed he needs diabetes eye exam and diabetes foot exam as soon as possible. patient is instructed if any symptoms worsen to go to nearest ER. Patient Instructions: Antibiotic Form, Diabetic Ketoacidosis (DC), Hypoglycemia in a Person with Diabetes (DC), Type 2 Diabetes in Adults: New Diagnosis (DC), Basic Carbohydrate Counting (DC), Meal Planning with the Plate Method (DC), Diabetic Neuropathy (DC), Managing Diabetes During Sick Days (DC), Diabetic Hyperglycemia (DC), Diabetes and Your Skin (DC), Hypertension and Diabetes (DC), What to Do if Your Blood Sugar is Low (DC), Diabetes and Nutrition (DC), Type 2 Diabetes Management for Adults (DC) Patient Language: Romansh Stand Alone Forms: General Discharge Information Follow-up/Referrals: Hermila,MD Oniel [Primary Care Provider] - Discharge Medications: New glipizide 5 mg Tablet 5 mg PO BIDWM Qty: 60 0RF dextrose [Glutose-15] 40 % Gel 15 g PO PRN PRN (Reason: Hypoglycemia) Qty: 1 0RF metformin 500 mg tablet 500 mg PO TID Qty: 90 0RF Continued gabapentin 400 mg capsule 400 mg PO Q12H Qty: 60 0RF meloxicam 15 mg tablet 15 mg PO DAILY Qty: 30 0RF Date of admission: 11/09/24 08:04 Primary Care Provider: HermilaOniel Admitting Provider: Helga Armendariz Attending physician on admission: Helga Armendariz Condition: Stable
[2024-11-15 13:30] VITALS: BP 109/71; PULSE 95; RESP 17; TEMP 37.1; O2SAT 100
--- NOTE | 2024-11-19 15:34 | PCCDE ---
11/19/24: 15:30 Courtesy follow up call attempted. Message left including direct call back number. FJ.
== END 2024-11-15 15:10 | disposition home or self-care (01) | DRG 637 ==
LOC: ANHICU 11-12 12:10 → ANH3MEDSUR 11-12 18:16
PROVIDERS: Internal Medicine; Nurse Practitioner Acute Care; Admitting Provider Family Medicine; PCP Family Medicine; Visit Provider Family Medicine
DX: E11.10 Type 2 diabetes mellitus with ketoacidosis without coma (principal); G93.41 Metabolic encephalopathy; N17.9 Acute kidney failure, unspecified; E87.0 Hyperosmolality and hypernatremia; E86.0 Dehydration; E87.8 Other disorders of electrolyte and fluid balance, not elsewhere classified; Z87.891 Personal history of nicotine dependence
CPT/HCPCS: 36415; 36600; 70450; 70551; 71045; 76775; 80048; 80053; 81001; 82140; 82550; 82570; 82805; 82948; 83036; 83605; 83735; 84100; 84145; 84300; 84439; 84443; 84480; 85018; 85025; 85027; 85610; 85730; 87086; 87181; 87637; 87641; 92610; 92611; 97161; 97165; 97530; 97535; A9270; J1650; J1815; J2470; J3480; J7030; J7040; J7050; J7060